=== PATIENT | female | born 1950 | race Caucasian/White ===

== ENCOUNTER 2024-09-11 07:20 | Inpatient (IN) ==
--- NOTE | 2024-08-05 13:33 | PAT Medication Instructions ---
Medication Instructions Date of Service August 05, 2024 Home Medications calcium carbonate 600 mg-vitamin D3 5 mcg (200 unit) tablet 1 tab PO QAM docusate sodium 100 mg capsule (Stool Softener) 100 mg PO QAM multivitamin 1 tab PO QAM paroxetine HCl 20 mg tablet (Paxil) 20 mg PO QAM acetaminophen 500 mg tablet 1,000 mg PO Q6H PRN Pain baclofen 10 mg tablet 10 mg PO Q8H PRN muscle spasms gabapentin 300 mg capsule 300 mg PO TID DO NOT take the morning of surgery calcium carbonate 600 mg-vitamin D3 5 mcg (200 unit) tablet 1 tab PO QAM docusate sodium 100 mg capsule (Stool Softener) 100 mg PO QAM multivitamin 1 tab PO QAM Take morning of surgery With a small sip of water, OTHERWISE NOTHING TO EAT OR DRINK AFTER MIDNIGHT: paroxetine HCl 20 mg tablet (Paxil) 20 mg PO QAM acetaminophen 500 mg tablet 1,000 mg PO Q6H PRN Pain (if needed) baclofen 10 mg tablet 10 mg PO Q8H PRN muscle spasms (if needed) gabapentin 300 mg capsule 300 mg PO TID Take evening before surgery acetaminophen 500 mg tablet 1,000 mg PO Q6H PRN Pain (if needed) baclofen 10 mg tablet 10 mg PO Q8H PRN muscle spasms (if needed) gabapentin 300 mg capsule 300 mg PO TID Other Notes If you have any questions please call us at [phone] or [phone] or [phone] or [phone]
--- NOTE | 2024-08-15 11:20 | Anesthesiology Consultation ---
Date of Service August 15, 2024 Assessment & Plan (1) Encounter for pre-operative examination: - awaiting surgeon ordered medical clearance, Rivka LUO. - patient states that she no longer has limb restriction was states was advised it would only be for 10 years and has been 14 years now. Chart Review Chart Review: Pending: Refer to Additional Notes / Consult section and Patient seen in Pre Admission Testing Teaching & Discussion Pre-Anesthesia Teaching/Discussion Notes: Instructed NPO after midnight before surgery, except medications with 15 cc of water. Medication instructions provided according to the PAT guidelines. History Surgery Operation Date: 09/11/24 09:25 Proposed Procedures p L2-L3 Decompression and Fusion with Spinal Cord Monitoring - Marcos Smith DO Height/Weight Height: 5 ft 3 in Weight: 64 kg Allergies Allergy/AdvReac Type Severity Reaction Status Date / Time gabapentin AdvReac Intermediate hair loss Verified 08/15/24 12:07 nitrofurantoin AdvReac Intermediate Rash Verified 08/05/24 09:00 [From Macrobid] Medications Home Medications Medication Instructions Recorded Confirmed Last Taken calcium 600 mg (as 1 tab PO QAM 06/29/21 08/05/24 07/26/21 carbonate)-vitamin D3 5 mcg (200 unit) tablet docusate sodium 100 mg capsule 100 mg PO QAM 06/29/21 08/05/24 07/26/21 (Stool Softener) multivitamin 1 tab PO QAM 06/29/21 08/05/24 07/26/21 paroxetine HCl 20 mg tablet (Paxil) 20 mg PO QAM 06/29/21 08/05/24 07/26/21 acetaminophen 500 mg tablet 1,000 mg PO Q6H PRN Pain 08/05/24 08/05/24 Unknown baclofen 10 mg tablet 10 mg PO Q8H PRN muscle spasms 08/05/24 08/05/24 Unknown Past Medical History Medical History (Updated 08/15/24 @ 11:28 by Mahogany Sauceda PA-C) Adverse effect of anesthesia Slow to wake Breast cancer (~01/2010) hx - left Chemo/Radiation Chronic back pain SI joint History of trigger finger Right - Thumb Hot flashes currently taking paxil for Kidney stones hx - passed on own Nausea and vomiting after administration of anesthetic agent denies needing scop patch Patient denies h/o stroke, seizures, heart attack, heart failure, DM, HTN, blood clots/DVTs or blood transfusions. Exercise / Class Metabolic Activity II 4-5 Yardwork/Stairs/Walk up hill (denies chest discomfort or shortness of breath with one flight of stairs) Past Family History Family History Other No family history of adverse response to anesthesia Past Surgical History Surgical History History of bunionectomy of right great toe History of colonoscopy History of repair of rotator cuff right History of tonsillectomy Hx of bilateral cataract extraction Hx of hysterectomy Hx of lumpectomy left with sentinel node biopsy S/P epidural steroid injection SI Joint Past Anesthesia History No Family Hx of Anesthesia Complications and Other (slow to wake) History of PONV No Hx of Motion Sickness and History of PONV (denies needing scop patch) Social History Smoking Status: Never smoker Do You Dip or Chew Tobacco: No Hx Alcohol Use: Yes Alcohol type: wine alcohol intake frequency: holidays/special occasions only Hx Substance Use: No substance use type: does not use Review of Systems Snoring, denies witnessed apneas. Patient denies chest pain, shortness of breath, dyspnea on exertion, reflux, fever, chills, cough, wheezing, or palpitations. Physical Exam Vital Signs Vitals BP 161/80 P 72 TEMP 98.3 SP02 94% on RA RESP 18 Physical Patient resting comfortably in chair in no acute distress, alert and oriented, responding appropriately throughout visit Full cervical extension range of motion without pain TMD < 3 finger breadths Mallampati Score 2 Dentition: intact, denies chipped or loose teeth, caps/crowns, implants or bridges Lungs: normal respiratory effort. Good air movement, clear throughout to auscultation, no adventitious breath sounds Cardiac: regular rate and rhythm, no murmurs noted Carotid arteries: negative bruit bilat Lab Results Anesthesia Preop Results Results Anesthesia Widget: WBC 9.16 K/ul (4.8-10.8) 08/15/24 Hgb 14.0 g/dl (12.0-16.0) 08/15/24 Hct 42.5 % (37.0-47.0) 08/15/24 Plt 270 K/uL (130-400) 08/15/24 Na 142 mmol/L (136-145) 08/15/24 K 4.5 mmol/L (3.5-5.1) 08/15/24 Cl 107 mmol/L (98-107) 08/15/24 CO2 29 mmol/L (21-32) 08/15/24 BUN 22 mg/dl (6-23) 08/15/24 Creat 0.72 mg/dl (0.6-1.2) 08/15/24 Glucose Level 94 mg/dl (70-99(Fasting)) 08/15/24 PT 10.7 Seconds (9.0-12.0) 08/15/24 PTT 28 Seconds (21-31) 08/15/24 INR 1.0 (0.9-1.1) 08/15/24 Urine Color Yellow 08/15/24 Urine Appearance Clear (Clear) 08/15/24 Urine pH 7.0 (4.5-7.5) 08/15/24 Urine Specific [place] 1.019 (1.000-1.030) 08/15/24 Urine Protein Trace (Negative) H 08/15/24 Urine Glucose (UA) Negative (Negative) 08/15/24 Urine Ketones Negative (Negative) 08/15/24 Urine Blood Negative (Negative) 08/15/24 Urine Nitrite Negative (Negative) 08/15/24 Urine Bilirubin Negative (Negative) 08/15/24 Urine Urobilinogen Negative (Negative) 08/15/24 Urine Leukocyte Esterase Negative (Negative) 08/15/24 Urine WBC (Auto) 0-5 /hpf (0-5) 08/15/24 Urine RBC (Auto) 0-2 /hpf (0-2) 08/15/24 Urine Hyaline Casts (Auto) 0-2 /lpf (0-2) 08/15/24 Urine Epithelial Cells (Auto) 0-2 /hpf (0-2) 08/15/24 Urine Bacteria (Auto) None Seen (None Seen) 08/15/24 Blood Type O Positive 08/15/24 Antibody Screen NEGATIVE 08/15/24 Testing Electrocardiogram Date: 08/15/24 NSR, rate 72 bpm Poor R wave progression, consider anterior AR vs lead placement vs LVH Chest X-Ray Date: 08/15/24 No acute cardiopulmonary findings.
[2024-09-11] MEDS: ACETAMINOPHEN 500 MG TAB PO SCH (08:12)
[2024-09-11] MEDS: LR 15ML/HR IV SCH (08:12)
[2024-09-11] MEDS: GABAPENTIN 300 MG CAP PO SCH (08:13)
[2024-09-11] MEDS: LR 60ML/HR IV SCH (08:13)
[2024-09-11] MEDS: CeleBREX 200 MG CAP PO SCH (08:13)
--- NOTE | 2024-09-11 08:44 | History & Physical Bridge Note ---
Date of Service September 11, 2024 History & Physical Bridge Note I have examined the patient, reviewed the History & Physical and in the interval since the performance of the History & Physical I have noted the following changes of clinical significance: no changes noted
--- NOTE | 2024-09-11 08:45 | History & Physical Report ---
Date of Service September 11, 2024 Assessment & Plan (1) Neurogenic claudication due to lumbar spinal stenosis: Plan: L2-L3 decompression and fusion History of Present Illness Chief Complaint: Back and leg pain Primary Care Provider: Joshua Varma This is a 74-year-old female who presents with chronic persistent back and leg pain after failing course of nonoperative care is here for surgical invention. Allergies Allergy/AdvReac Type Severity Reaction Status Date / Time gabapentin AdvReac Intermediate hair loss Verified 09/11/24 07:59 nitrofurantoin AdvReac Intermediate Rash Verified 09/11/24 07:59 [From Macrobid] Home Medications Medication Instructions Recorded Confirmed Type calcium 600 mg (as 1 tab PO QAM 06/29/21 09/11/24 History carbonate)-vitamin D3 5 mcg (200 unit) tablet docusate sodium 100 mg capsule 100 mg PO QAM 06/29/21 09/11/24 History (Stool Softener) multivitamin 1 tab PO QAM 06/29/21 09/11/24 History paroxetine HCl 20 mg tablet (Paxil) 20 mg PO QAM 06/29/21 09/11/24 History acetaminophen 500 mg tablet 1,000 mg PO Q6H PRN Pain 08/05/24 09/11/24 History baclofen 10 mg tablet 10 mg PO Q8H PRN muscle spasms 08/05/24 09/11/24 History cholecalciferol (vitamin D3) 125 125 mcg PO DAILY 09/11/24 09/11/24 History mcg (5,000 unit) tablet (Vitamin D3) Past Med/Surg History Problem List (Updated 09/11/24 @ 08:45 by Marcos Smith DO) Neurogenic claudication due to lumbar spinal stenosis Encounter for pre-operative examination Medical History (Updated 09/11/24 @ 08:45 by Marcos Smith DO) Adverse effect of anesthesia Slow to wake History of trigger finger Right - Thumb Nausea and vomiting after administration of anesthetic agent denies needing scop patch Chronic back pain SI joint Kidney stones hx - passed on own Breast cancer (~01/2010) hx - left Chemo/Radiation Hot flashes currently taking paxil for Surgical History Hx of hysterectomy Hx of bilateral cataract extraction History of bunionectomy of right great toe History of repair of rotator cuff right S/P epidural steroid injection SI Joint History of colonoscopy History of tonsillectomy Hx of lumpectomy left with sentinel node biopsy Family History Other No family history of adverse response to anesthesia Social History Smoking Status: Never smoker Second Hand Exposure: No; Do You Dip or Chew Tobacco: No; Tobacco Cessation Education Requested by Patient: No Hx Alcohol Use: Yes Alcohol type: wine Hx Substance Use: No Preferred Language: Colombian Communication Ability: Effective [employer] Sales Representative Required: No Beliefs That Will Affect Care: None Current Living Situation: Spouse Other Information That Helps Us Care for You: No Feels Safe at Home: Yes Safety Concerns: Feels Safe At This Time Assistive Devices: Glasses Physical Exam Physical Exam: Patient is alert and oriented Heart regular in rhythm Lungs clear Results & Data Results & Data Vital Signs (Past 12 Hours) Vital Signs Temp Pulse Resp BP Pulse Ox O2 Del Method 09/11/24 08:03 36.7 C 66 18 180/84 H 96 Room Air
[2024-09-11] MEDS ORDERED: ePHEDrine sulfate 50 MG/ML AMP IV PRN (08:53)
[2024-09-11] MEDS ORDERED: fentaNYL citrate PF 100 MCG/2 ML VIAL IV PRN (08:53)
[2024-09-11] MEDS ORDERED: ONDANSETRON INJ 2 MG/ML 2 ML VIAL IV PRN ×2 (08:53→11:54)
[2024-09-11] MEDS ORDERED: ATROPINE SULFATE 0.1 MG/ML 10ML SYR IV PRN (08:53)
[2024-09-11] MEDS ORDERED: PROMETHAZINE HCL 6.25 MG in SODIUM CHLORIDE 0.9% 50 ML IV PRN (08:53)
[2024-09-11] MEDS ORDERED: fentaNYL citrate PF 100 MCG/2 ML VIAL ONE ×2 (09:05→09:52)
[2024-09-11] MEDS ORDERED: MIDAZOLAM HCL 1 MG/ML 2ML VIAL ONE (09:05)
[2024-09-11] MEDS: ceFAZolin 2000MG 2,000 MG/15 ML SYR IV SCH (09:30)
[2024-09-11] MEDS ORDERED: ONDANSETRON INJ 2 MG/ML 2 ML VIAL ONE (09:48)
[2024-09-11] MEDS ORDERED: SUGAMMADEX SODIUM 200 MG/2 ML VIAL IV ONE (09:52)
[2024-09-11] MEDS ORDERED: PROPOFOL IV EMULSION 10 MG/ML 20 ML VIAL IV ONE (09:52)
[2024-09-11] MEDS ORDERED: DEXAMETHASONE SOD INJ 4 MG/ML VIAL ONE (09:52)
[2024-09-11] MEDS ORDERED: ROCURONIUM BROMIDE 10 MG/ML 5 ML VIAL IV ONE (09:52)
[2024-09-11] MEDS ORDERED: ePHEDrine sulfate 50 MG/5 ML SYR ONE (10:07)
[2024-09-11] MEDS ORDERED: KETOROLAC 30 MG/ML VIAL ONE (10:33)
[2024-09-11] MEDS: ceFAZolin 330 MG/ML 1 GM VIAL ONE (10:45)
[2024-09-11] MEDS: FLOSEAL HEMOSTATIC MATRIX 10ML TOP ONE (10:45)
[2024-09-11] MEDS: BUPIVACAINE/EPINEPHRINE 0.25% 1:200,000 30 ML VIAL ONE (10:45)
--- NOTE | 2024-09-11 10:48 | Operative Report ---
Post Operative Report Pre & Post Diagnosis Operation Date: 09/11/24 09:10 Pre-Op Diagnosis: Neurogenic claudication due to lumbar spinal stenosis Post-Op Diagnosis: Neurogenic claudication due to lumbar spinal stenosis I identified the patient and participated in the time-out.: Yes Procedure Operation Date: 09/11/24 09:10 Actual Procedures #1 lumbar decompression with bilateral medial facetectomies and foraminotomies L2-L3. #2 posterior spinal fusion L2-L3. #3 placed posterior instrumentation L2-L3. #4 interbody fusion L2-L3. #5 placement of Spira limb by 26 mm at L2- L3. #6 placement locally harvested morselized autograft and posterior gutters. #7 placement infuse collagen sponge combined with Koros in the posterior lateral gutters and os design interbody space. #8 placement of versa wrap over the exposed dura. Surgeon Marcos Smith, Dispatch Lead Kiki Daniel Estimated Blood Loss 50 Findings Consistent with Post-Op Diagnosis Specimens None Indications This is a 74-year-old female presents publish diagnosis of failing course of nonoperative care is here for surgical invention. Description of Procedure Patient was met with identified informed consent obtained. Patient was then taken to the operative suite underwent intubation placed in a prone position on the Kirk table on top of the Brad frame. All bony promises well-padded eyes inspected to ensure no external pressure placed upon them. This point lumbar spine was prepped and draped in the normal sterile fashion. Sharp dissection with the assistance of Bovie cautery performed down to and exposing the lamina and transverse processes of L2-L3. From caudal to cephalad fashion complete laminectomy of L2 was performed including bilateral medial facetectomies and foraminotomies addressing severe spinal stenosis and foraminal disease. Pedicle screws were then placed in L to L3 bilaterally with assistance of fluoroscopy and the properly sized jesica placed. By way of transforaminal approach on the right a complete discectomy of L2-L3 was performed endplates corrected to subcortical bleeding bone and a 11 x 26 mm Spira cage filled with os design bone graft tapped into position. The rods were then compressed locked in final position bilaterally. Transverse processes of L2-L3 burred to subcortical bleeding bone. Infuse collagen sponge combined with Koros and local autograft placed in the posterior gutters. Versa wrap placed over the exposed dura. Please note spinal cord monitoring was utilized at the procedure no changes noted. Kiki Daniel was present out the entire procedure and all the patient positioning complex portions of the surgery and final skin closure. 15 round KURT drain inserted. The incision was then closed with 1 Vicryl fascia 2-0 Vicryl subcutaneously and 4 Monocryl for final closure. Im ordering 20 grams of Triple [place] Collagen Powder ([employer] [id number]) to treat an incision wound that was caused by a spine procedure. The incision is approximately 2 cm(W) x 4 cm(L) into the joint (D) in size and is a full thickness wound. Triple [place] collagen comes in 1 gram packets so 20 packets were ordered. Given the size of the wound, with light to moderate exudate I chose to order a 20 day supply. The patient will be provided instructions for proper application of the collagen wound kit. The patient will be asked to apply the collagen powder daily and then cover it with sterile dressings dispensed. Collagen was selected as I expect the collagen to attract monocytes and fibroblasts, act as a sacrificial substrate for MMPs, and ultimately proved a matrix for tissue and vessel growth. The collagen will act as a primary dressing in this scenario. It is medically necessary for proper healing of these wounds to improve bioavailability and contact with each wound surface, this is also to help prevent infection of wounds and promote healing ultimately leading to a better healing outcome and limit the risk of infection. I attest to the content of the Intraoperative Record and any orders documented therein. Any exceptions are noted below.
--- OUTSIDE RECORDS SUMMARY | 2024-09-11 11:22 | External Medical Summary ---
"Continuity of Care Document (CCD) Created on: September 04, 2024 Cande Maldonado External Reference #: [id number] : 1950 Sex: Female Author Name Unknown Organization [facility] Address [address] [place] [address] Phone [phone] Care Team Providers Care Track Repair Worker Name Role Phone Papito Glover M.D. Care Team Information Rece iver [phone] Problems Active Problems Provider Date Right side sciatica Penny Ya DO Onset: 07/2023 Social History Type Date Description Comments Sex Unknown Tobacco Use Reviewed: 08/22/24 Never Smoked Cigarette s Tobacco Use Reviewed: 08/22/24 Never Smoked Cigars Tobacco Use Reviewed: 08/22/24 Never Smoked A Pipe Smoking Status Reviewed: 08/22/24 Never Smoked A Pipe Smokeless Tobacco 08/22/2024 Never Used Smokeless To bacco ETOH Use Denies alcohol use Recreational Drug Use Denies Drug Use Allergies and adverse reactions Active Allergies Criticality Reaction | Severity Comments Date Macrobid Unable to assess criticality 07/07/2016 Medications Active Medications SIG Qnty Indications Order ing Provider Date Aspirin 81 Low Jtcs21do Chewtabs 1 by mouth every day 90units Joshua Varma, DO 08/22/2024 Vitamin D3 Maximum Jyqmqjie439gyx (5000 Ut) Capsules 1 by mouth every day 90caps Joshua Varma DO 08/22/2024 Jiztiubu55ga Tablets 1 by mouth tab every 8 hours as needed pain/muscle spasm 90tabs David Amezcua JR, DO 06/17/2024 Fluocinolone Acetonide0.01% Oil 5 gtt in affected ears bid x 7 days prn 20ml Joshua Varma, 03/14/2024 Camuuqni10cnt/0.5ML Suspension Rec 0.5 milliliters intramuscular x 1 1units Joshua Varma, 03/01/2024 Rfuwswkx32-278-21dv Capsules 1 po q 4 hours prn. Do not exceed 6/day 14caps G44.209 Joshua Varma, DO 03/01/2024 Multivitamin AdultTablets 1 by mouth every day Unknown Sndry56li Tablets 1 by mouth every day N95.1 Unknown Calcium 455043fk Tablets 1 by mouth once a day Unknown Stool SoftenerCapsules 1 by mouth every day Unknown History Medications Dwpzrfutvx882wn Tablets take 1 tablet by mouth every 6-8 hours as needed for pain/muscle spasms 90tabs M51.16 David Amezcua JR, DO 06/17/2024 - 06/17/2024 Kzxdmkncgv686aa Capsules 1 by mouth every night at bedtime day 1, 1 by mouth twice a day day 2, then 1 by mouth three times a day 90caps M51.16 Joshua Varma, 05/23/2024 - 08/22/2024 Fxdkyrnqvx57qy Tablets 4 tabs by mouth days 1-2, 3 tabs by mouth days 3-4, 2 tabs by mouth days 5-6, 1 tab by mouth day 7-8 20tabs M51.16 Joshua Varma, 05/23/2024 - 05/31/2024 Medications Administered in Office Medication SIG Qnty Indications Ordering Provider Date Injection Ketorolac Trometha mine Per 15 mg/.5cc (Toradol)Injection Everett Cuenca PA-C 06/17/2024 Injection Ketorolac Trometha mine Per 15 mg/.5cc (Toradol)Injection Rivka Avina PA-C 05/23/2024 Injection Ketorolac Trometha mine Per 15 mg/.5cc (Toradol)Injection Rivka Avina PA-C 02/09/2024 Injection Methylprednisolone Acetate 20 MGInjection Rivka Avina PA-C 02/09/2024 Injection Kenalog 10 MG ND [id number] Joshua Varma, 1 12/03/2022 Injection Ketorolac Trometha mine Per 15 mg/.5cc (Toradol)Injection Raven perez MD 07/03/2023 Injection Methylprednisolone Acetate 20 MGInjection Raven Lord MD Injection Kenalog 10 MG NDC [id number] Joshua Varma, DO 0 05/31/2021 Injection Methylprednisolone Acetate 20 MGInjection Joshua Varma, DO 03/10/2021 Injection Kenalog 10 MG NDC [id number] Joshua Varma, DO 0 12/04/2020 Injection Ketorolac Trometha mine Per 15 mg/.5cc (Toradol)Injection Rivka Avina PA-C 08/28/2020 Injection Methylprednisolone Acetate 20 MGInjection Joshua Varma, DO 08/25/2020 Injection Ketorolac Trometha mine Per 15 mg/.5cc (Toradol)Injection Rivka Avina PA-C 04/22/2019 Injection Methylprednisolone Acetate 20 MGInjection Rivka Avina PA-C 04/22/2019 Immunizations CPT Code Status Date Vaccine Lot # [id number] Given 08/22/2024 Influenza Vac, Split, Preservative Free High Dose Age 65 & > [id number] 32712 Given 10/11/2023 Influenza Vaccine High Do se 0.5ML Age 65 & > [id number] 39477 Given 10/21/2021 Influenza Vaccine High Do se 0.5ML Age 65 & > [id number] 49067 Given 01/28/2021 Influenza Virus Vaccine, Quadriv[place], [place] Use 49174 Given 09/30/2019 Influenza Vacci ne, Inactivated, Subunit, Adjuvanted, For Intrmusc [id number] 56059 Given 02/25/2019 Pneumococcal Vaccine/Pneu movax 23 [id number] 37391 Given 09/21/2017 Zostavax Vaccine 12349 Given 09/14/2017 Pneumococcal Conjugate-Pr evnar 13 [id number] 05056 Given 09/14/2017 Influenza Vac, Split, Preservative Free High Dose Age 65 & > [id number] 02194 Given 07/07/2016 Tdap (Tetanus, diphtheria & acel. pertussis) Adacel or Boostrix [id number] 74547 Refused 08/22/2024 Shingrix 14748 Refused 06/17/2024 Moderna Sars-Co v-2 (Cov-19) vacc,100 mcg/ 0.5 mL 12Y+EMR Doc Only 53469 Refused 02/22/2023 Moderna Sars-Co v-2 (Cov-19) vacc,100 mcg/ 0.5 mL 12Y+EMR Doc Only 93332 Refused 02/15/2021 Moderna Sars-Co v-2 (Cov-19) vacc,100 mcg/ 0.5 mL 12Y+EMR Doc Only 48838 Refused 12/04/2020 Shingrix 40857 Refused 07/03/2017 Influenza Virus Vaccine, Quadrivalent, [place] Use 77696 Refused 03/02/2017 Zostavax Vaccine 62522 Refused 03/02/2017 Pneumococcal Vaccine/Pneu movax 23 21340 Refused 03/02/2017 Influenza Virus Vaccine, Quadrivalent, Im Use 05881 Refused 03/02/2017 Pneumococcal Conjugate-Pr evnar 13 Vital Signs Date Vital Result Comment 08/22/2024 8:30am BP Systolic 132 mmHg BP Diastolic 72 mmHg Body Temperature 98.3 F Heart Rate 70 /min Respiratory Rate 16 /min Weight 135.38 lb Weight 61.406 kg 06/17/2024 8:50am BP Systolic 130 mmHg BP Diastolic 80 mmHg Body Temperature 97.6 F Heart Rate 75 /min Respiratory Rate 20 /min Results Test Acquired Date Facility Test Result H/L Range N ote Laboratory test finding 09/03/2024 [facility] [address] [place] [address] Potassium 4.9 mEq/L 3.5-5.0 1 Comp. Met 09/02/2024 [facility] [address] [place], [place] [address] Glucose 97 mg/dL 70-110 BUN 21 mg/dL 6-25 Creatinine 0.6 mg/dL 0.5-1.2 Sodium 143 mEq/L 135-145 Potassium 5.5 mEq/L High 3.5-5.0 Chloride 106 mEq/L 95-107 Co-2 28 mEq/L 24-31 Alk Phos 87 IU/L 43-122 Alt(SGPT) 12 IU/L 10-40 Ast(Sgot) 17 IU/L 3-42 T.Bilirubin 0.3 mg/dL 0.1-1.3 Calcium 9.3 mg/dL 8.5-10.6 Tot.Protein 6.3 g/dL 5.8-8.0 Albumin 4.1 g/dL 3.0-5.2 Globulin 2.2 g/dL 2.0-3.4 GFR 104 ML/MIN/1.7 3SQM >60 Lipid 09/02/2024 [facility] [address] [place] [address] [phone] Cholesterol 212 mg/dL High 0-200 2 Triglyceride 98 mg/dL 0-150 3 HDLD 75 mg/dL See Comment 4 Measured LDL 124 mg/dL 0-130 5 Calc VLDL 19.6 mg/dL See Comment 6 Chol/HDL 2.8 RATIO See Comment 7 Non-HDL 137 mg/dL See Comment 8 CBC W/Diff 09/02/2024 [facility] [address] [place], [place] [id number] [phone] WBC 7.2 10^3/M3 3.1-9.2 RBC 4.81 10^6/M3 3.70-5.50 HGB 14.7 GR/DL 11.5-16.1 HCT 43.8 % 34.5-47.8 MCV 90.9 CUMICR 82.6-95.8 MCH 30.5 PICOGR 27.9-32.9 MCHC 33.5 % 32.6-35.4 RDW 13.3 % 11.4-14.6 PLT 265 10^3/M3 140-350 MPV 7.5 CUMICR 7.0-10.6 %Neut 53.4 % 40.0-75.0 %Lymph 34.4 % 17.0-45.0 %Creek 6.2 % 1.0-11.0 %Eos 4.9 % 0.0-6.0 %Baso 1.1 % 0.0-2.0 #Neut 3.8 10^3/M3 1.5-8.0 #Lymph 2.5 10^3/M3 0.8-3.2 #Creek 0.4 10^3/M3 0.0-0.8 #Eos 0.4 10^3/m3 0.0-0.4 #Baso 0.1 10^3/m3 0.0-0.2 Laboratory test finding 09/02/2024 [facility] [address] [place], [place] [id number] FRT4 0.87 ng/dL 0.75-1.54 TSH 1.30 uIU/mL 0.50-6.00 Iron Panel(Medcom) 09/02/2024 [facility] [address] [place] [address] Iron 92 g /dL 25-140 % Saturation 33 % 30-35 Tibc 09/02/2024 [facility] [address] [place] [address] Tibc 277 g /dL 260-400 Transferrin 198 mg/dL Low 200-400 Laboratory test finding 04/22/2024 [facility] [address] [place] [address] [phone] Potassium 4.8 mEq/L 3.5-5.0 Laboratory test finding 03/29/2024 [facility] [address] [place] [address] Potassium 5.2 mEq/L High 3.5-5.0 BMP 03/26/2024 [facility] [address] [place] [address] [phone] Glucose 88 mg/dL 70-110 BUN 28 mg/dL High 6-25 Creatinine 0.9 mg/dL 0.5-1.2 Sodium 140 mEq/L 135-145 Potassium 5.5 mEq/L High 3.5-5.0 Chloride 101 mEq/L 95-107 Co-2 27 mEq/L 24-31 Calcium 10.2 mg/dL 8.5-10.6 GFR 65 ML/MIN/1.7 3SQM >60 Laboratory test finding 03/08/2024 [facility] [address] [place] [address] Potassium 5.1 mEq/L High 3.5-5.0 1 CRITICAL RESULTS ARIANNA IFIED, FAXED, AND CALLED TO HANNA @ 4442 09/03/2024 [facility] 2 CHOLESTEROL Less than 200mg/dl Low risk 201-239 mg/dl Borderline risk Equal to or greater 240mg/dl High risk 3 TRIGLYCERIDES Less than 150mg/dl Normal 150-199mg/dl Borderline 200-499mg/dl High Greater than 500mg/dl Very High 4 HDL <40mg/dl Elevated Risk 41-59mg/dl Risk >=60mg/dl Least Risk 5 LDL <100mg/dl Optimal 100-129mg/dl Near Optimal 130-159mg/dl Borderline High 160-189mg/dl High >=190 Very High 6 VLDL Less than 30mg/dl Normal 7 CHOL/HDL <4.0 Optimal 4.0-5.0 Borderline >6.0 High Risk 8 NON-HDL 30mg/dl higher than LDL Target Procedures Date Code Description Status 09/03/2024 00506 Venipuncture Routine Complet ed 09/02/2024 46825 Venipuncture Routine Complet ed 08/22/2024 G9920 Scrning Perf And Negative Co mpleted 08/22/2024 G0008 Influenza Admin Completed 06/17/2024 J1885 Injection Ketoro lac Tromethamine Per 15 mg/.5cc (Toradol) Completed 05/23/2024 J1885 Injection Ketoro lac Tromethamine Per 15 mg/.5cc (Toradol) Completed 04/22/2024 68383 Venipuncture Routine Complet ed 04/17/2024 [id number] Mammogram Completed 03/29/2024 80434 Venipuncture Routine Complet ed 03/26/2024 10556 Venipuncture Routine Complet ed 03/08/2024 41467 Venipuncture Routine Complet ed 01/28/2021 34330002 Colonoscopy Completed 08/22/2019 [id number] Bone Mineral Density Test Co mpleted Medical Devices Description No Information Available Encounters Type Date Location Provider Dx Diagnosis Office Visit 08/22/2024 8:30a Tanja Avina PA-C 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, lumbar region Z01.818 Encounter for other preprocedural examination Z23 Encounter for immuni zation Office Visit 06/17/2024 8:45a Tanja farah PA-C M51.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 disc disorders w radiculopathy, lumbar region Office Visit 05/23/2024 3:00p Tanja Forbes PA-C M51.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 disc disorders w radiculopathy, lumbar region Assessments Date Code Description Provider 09/03/2024 R79.89 Other specified abnormal findings of blood chemistry Lab - [place] 09/02/2024 Z00.01 Encounter for [facility] adult medical examination with abnormal findings Lab - [place] 09/02/2024 E78.2 Mixed hyperlipidemia Lab - [facility] 09/02/2024 Z85.3 Personal history of malignant neoplasm of breast Lab - [place] 09/02/2024 N95.1 Menopausal and female climac teric states Lab - [place] 09/02/2024 R79.89 Other specified abnormal findings of blood chemistry Lab - [place] 08/22/2024 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 Rivka Avina PA-C 08/22/2024 M51.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 d isc disorders with radiculopathy, lumbar region Rivka Avina PA-C 08/22/2024 Z01.818 Encounter for ot her preprocedural examination Rivka Avina PA-C 08/22/2024 Z23 Encounter for immunization H lola Avina PA-C 06/17/2024 M51.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 d isc disorders with radiculopathy, lumbar region Everett Cuenca PA-C 05/23/2024 M51.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 d isc disorders with radiculopathy, lumbar region Rivka Avina PA-C 04/22/2024 E87.5 Hyperkalemia Naila Mims MD, PhD 04/22/2024 E87.5 [facility] E87.5 Hyperkalemia Joshua Varma, DO 03/29/2024 E87.5 [facility]/26/[facility] E87.5 Hyperkalemia Joshua Varma, DO 03/26/2024 E87.5 [facility] 03/08/2024 R79.89 Other specified abnormal findings of blood chemistry Joshua Varma, DO 03/08/2024 R79.89 Other specified abnormal findings of blood chemistry Lab - [place] Plan of Treatment Future Appointment(s):* 09/27/2024 9:00 am - Rivka Avina PA-C at [place] 08/22/2024 - Rivka Avina PA-C* E04.1 Nontoxic single thyroid nodule* New Xrays:* Ultrasound Head And Neck Soft Tissues, Scheduled: 09/17/24 * Follow up:* thyroid u/s * M51.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 disc disorders with radiculopathy, lumbar region * Z01.818 Encounter for other preprocedural examination* Follow up:* medically stable at this time to have surgery as planned * Z23 Encounter for immunization * All* New Medication:* Aspirin 81 Low Dose 81 mg - 1 by mouth every day * Vitamin D3 Maximum Strength 125 mcg (5000 Ut) - 1 by mouth every day Functional Status Description No Information Available Mental Status Description No Information Available Referrals Refer to Dr Reason for Referral Status Appt Papito Wood M.D. Closed 07/19 [facility] [address] [phone]"
--- OUTSIDE RECORDS SUMMARY | 2024-09-11 11:22 | External Medical Summary ---
"Continuity of Care Document (CCD) Created on: September 08, 2024 Cande Maldonado External Reference #: [id number] : 1950 Sex: Female Author Name Unknown Organization [facility] Address [address] [place] [address] Phone [phone] Care Team Providers Care Sole Assessor Name Role Phone Papito Glover M.D. Care Team Information Rece iver [phone] Problems Active Problems Provider Date Right side [...] Order ing Provider Date Aspirin 81 Low Cnqg74sk Chewtabs 1 by mouth every day 90units Joshua Varma, DO 08/22/2024 Vitamin D3 Maximum Rkhaewjd659nvv (5000 Ut) Capsules 1 by mouth every day 90caps Joshua Varma DO 08/22/2024 Skuoxtpw50ji Tablets 1 by mouth tab every 8 hours as needed pain/muscle spasm 90tabs David Amezcua JR, DO 06/17/2024 Fluocinolone Acetonide0.01% Oil 5 gtt in affected ears bid x 7 days prn 20ml Joshua Varma, 03/14/2024 Asibreiu22aqf/0.5ML Suspension Rec 0.5 milliliters intramuscular x 1 1units Joshua Varma, 03/01/2024 Flpkfnri10-304-23jf Capsules 1 po q 4 hours prn. Do not exceed 6/day 14caps G44.209 Joshua Varma, DO 03/01/2024 Multivitamin AdultTablets 1 by mouth every day Unknown Xglkh49be Tablets 1 by mouth every day N95.1 Unknown Calcium 123018ot Tablets 1 by mouth once a day Unknown Stool SoftenerCapsules 1 by mouth every day Unknown History Medications Ftvvvdlknz260um Tablets take 1 tablet by mouth every 6-8 hours as needed for pain/muscle spasms 90tabs M51.16 David Amezcua JR, DO 06/17/2024 - 06/17/2024 Bubmelcvhp096ok Capsules 1 by mouth every night at bedtime day 1, 1 by mouth twice a day day 2, then 1 by mouth three times a day 90caps M51.16 Joshua Varma, 05/23/2024 - 08/22/2024 Wlsgvvueyu69pk Tablets 4 tabs by mouth days 1-2, [...] PA-C 02/09/2024 Injection Kenalog 10 MG ND [id number] Joshua Varma, 1 12/03/2022 Injection Ketorolac Trometha mine Per 15 mg/.5cc (Toradol)Injection Raven perez MD 07/03/2023 Injection Methylprednisolone Acetate 20 MGInjection Raven Lord MD Injection Kenalog 10 MG NDC [id number] Joshua Varma, DO 0 05/31/2021 Injection Methylprednisolone Acetate 20 MGInjection Joshua Varma, DO 03/10/2021 Injection Kenalog 10 MG NDC [id number] Joshua Varma, DO 0 12/04/2020 Injection Ketorolac Trometha mine Per 15 mg/.5cc (Toradol)Injection Rivka Avina PA-C 08/28/2020 Injection Methylprednisolone Acetate 20 MGInjection Joshua Varma, DO 08/25/2020 Injection Ketorolac Trometha mine Per 15 mg/.5cc (Toradol)Injection Rivka Avina PA-C 04/22/2019 Injection Methylprednisolone Acetate 20 MGInjection Rivka Avina PA-C 04/22/2019 Immunizations CPT Code Status Date Vaccine Lot # [id number] Given 08/22/2024 Influenza Vac, Split, Preservative Free High Dose Age 65 & > [id number] 92507 Given 10/11/2023 Influenza Vaccine High Do se 0.5ML Age 65 & > [id number] 64386 Given 10/21/2021 Influenza Vaccine High Do se 0.5ML Age 65 & > [id number] 61788 Given 01/28/2021 Influenza Virus Vaccine, Quadriv[place], [place] Use 89986 Given 09/30/2019 Influenza Vacci ne, Inactivated, Subunit, Adjuvanted, For Intrmusc 181408 29675 Given 02/25/2019 Pneumococcal Vaccine/Pneu movax 23 [id number] 66359 Given 09/21/2017 Zostavax Vaccine 35729 Given 09/14/2017 Pneumococcal Conjugate-Pr evnar 13 [id number] 60987 Given 09/14/2017 Influenza Vac, Split, Preservative Free High Dose Age 65 & > [id number] 67728 Given 07/07/2016 Tdap (Tetanus, diphtheria & acel. pertussis) Adacel or Boostrix [id number] 41883 Refused 08/22/2024 Shingrix 96681 Refused 06/17/2024 Moderna Sars-Co v-2 (Cov-19) vacc,100 mcg/ 0.5 mL 12Y+EMR Doc Only 37566 Refused 02/22/2023 Moderna Sars-Co v-2 (Cov-19) vacc,100 mcg/ 0.5 mL 12Y+EMR Doc Only 77441 Refused 02/15/2021 Moderna Sars-Co v-2 (Cov-19) vacc,100 mcg/ 0.5 mL 12Y+EMR Doc Only 16377 Refused 12/04/2020 Shingrix 31107 Refused 07/03/2017 Influenza Virus Vaccine, Quadrivalent, [place] Use 51804 Refused 03/02/2017 Zostavax Vaccine 18854 Refused 03/02/2017 Pneumococcal Vaccine/Pneu movax 23 47717 Refused 03/02/2017 Influenza Virus Vaccine, Quadrivalent, [place] Use 80127 Refused 03/02/2017 Pneumococcal Conjugate-Pr evnar 13 Vital [...] Range N ote Laboratory test finding 09/03/2024 [facility] [address] [place] [address] [phone] Potassium 4.9 mEq/L 3.5-5.0 1 Comp. Met 09/02/2024 [facility] [address] [place], [place] [address] Glucose 97 mg/dL 70-110 BUN 21 mg/dL [...] GFR 104 ML/MIN/1.7 3SQM >60 Lipid 09/02/2024 [facility] [address] [place] [address] [phone] Cholesterol 212 mg/dL High 0-200 2 Triglyceride 98 mg/dL 0-150 3 HDLD 75 mg/dL See Comment 4 Measured LDL 124 mg/dL 0-130 5 Calc VLDL 19.6 mg/dL See Comment 6 Chol/HDL 2.8 RATIO See Comment 7 Non-HDL 137 mg/dL See Comment 8 CBC W/Diff 09/02/2024 [facility] [address] [place], [place] [address] WBC 7.2 10^3/M3 3.1-9.2 RBC 4.81 10^6/M3 3.70-5.50 HGB 14.7 GR/DL 11.5-16.1 HCT 43.8 % 34.5-47.8 MCV 90.9 CUMICR 82.6-95.8 MCH 30.5 PICOGR 27.9-32.9 MCHC 33.5 % 32.6-35.4 RDW 13.3 % 11.4-14.6 PLT 265 10^3/M3 140-350 MPV 7.5 CUMICR 7.0-10.6 %Neut 53.4 % 40.0-75.0 %Lymph 34.4 % 17.0-45.0 %Mower 6.2 % 1.0-11.0 %Eos 4.9 % 0.0-6.0 %Baso 1.1 % 0.0-2.0 #Neut 3.8 10^3/M3 1.5-8.0 #Lymph 2.5 10^3/M3 0.8-3.2 #Mower 0.4 10^3/M3 0.0-0.8 #Eos 0.4 10^3/m3 0.0-0.4 #Baso 0.1 10^3/m3 0.0-0.2 Laboratory test finding 09/02/2024 [facility] [address] [place], [place] [address] [phone] FRT4 0.87 ng/dL 0.75-1.54 TSH 1.30 uIU/mL 0.50-6.00 Iron Panel(Medcom) 09/02/2024 [facility] [address] [place] [address] [phone] Iron 92 g /dL 25-140 % Saturation 33 % 30-35 Tibc 09/02/2024 [facility] [address] [place] [address] [phone] Tibc 277 g /dL 260-400 Transferrin 198 mg/dL Low 200-400 Laboratory test finding 04/22/2024 [facility] [address] [place] [address] Potassium 4.8 mEq/L 3.5-5.0 Laboratory test finding 03/29/2024 [facility] [address] [place] [address] Potassium 5.2 mEq/L High 3.5-5.0 BMP 03/26/2024 [facility] [address] [place] [address] Glucose 88 mg/dL 70-110 BUN 28 mg/dL High 6-25 Creatinine 0.9 mg/dL 0.5-1.2 Sodium 140 mEq/L 135-145 Potassium 5.5 mEq/L High 3.5-5.0 Chloride 101 mEq/L 95-107 Co-2 27 mEq/L 24-31 Calcium 10.2 mg/dL 8.5-10.6 GFR 65 ML/MIN/1.7 3SQM >60 1 CRITICAL RESULTS ARIANNA IFIED, FAXED, AND CALLED TO HANNA @ 6241 09/03/[address] [facility] 2 CHOLESTEROL Less than 200mg/dl Low [...] Target Procedures Date Code Description Status 09/03/2024 16714 Venipuncture Routine Complet ed 09/02/2024 20179 Venipuncture Routine Complet ed 08/22/2024 G9920 Scrning Perf And Negative Co mpleted 08/22/2024 G0008 Influenza Admin Completed 06/17/2024 J1885 Injection Ketoro lac Tromethamine Per 15 mg/.5cc (Toradol) Completed 05/23/2024 J1885 Injection Ketoro lac Tromethamine Per 15 mg/.5cc (Toradol) Completed 04/22/2024 26062 Venipuncture Routine Complet ed 04/17/2024 [id number] Mammogram Completed 03/29/2024 28043 Venipuncture Routine Complet ed 03/26/2024 96089 Venipuncture Routine Complet ed 01/28/2021 27166174 Colonoscopy Completed 08/22/2019 [id number] Bone Mineral Density Test Co mpleted Medical [...] abnormal findings of blood chemistry Lab - [place] 09/02/2024 Z00.01 Encounter for ge neral adult medical examination with abnormal findings David Amezcua JR, DO 09/02/2024 Z00.01 Encounter for ge neral adult medical examination with abnormal findings Lab - [place] 09/02/2024 E78.2 Mixed hyperlipidemia David Amezcua , DO 09/02/2024 E78.2 Mixed hyperlipidemia Lab - [place] 09/02/2024 Z85.3 Personal history of malignant neoplasm of breast David Amezcua , DO 09/02/2024 Z85.3 Personal history of malignant neoplasm of breast Lab - [place] 09/02/2024 N95.1 Menopausal and female climac teric states David Amezcua , DO 09/02/2024 N95.1 Menopausal and female climac teric states Lab - [place] 09/02/2024 R79.89 Other specified abnormal findings of blood chemistry David Jennifer Amezcua JR, DO 09/02/2024 R79.89 Other specified abnormal findings of blood chemistry Lab - [place] 08/22/2024 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 [...] MD, PhD 04/22/2024 E87.5 Hyperkalemia Lab - [place] [facility] 03/29/2024 E87.5 Hyperkalemia Joshua Varma, DO 03/29/2024 E87.5 Hyperkalemia Lab - [place] [facility] 03/26/2024 E87.5 Hyperkalemia Joshua Varma, DO 03/26/2024 E87.5 Hyperkalemia Lab - [place] [facility] Plan of Treatment Future Appointment(s):* 09/27/2024 9:00 am - Rivka Avina PA-C at [place] 08/22/2024 - Rivka Avina PA-C* E04.1 Nontoxic [...] Description No Information Available Referrals Refer to Reason for Referral Status Appt Papito Wood M.D. Closed 07/19 [facility] [address] [phone]"
--- OUTSIDE RECORDS SUMMARY | 2024-09-11 11:22 | External Medical Summary | Continuity of Care Document ---
Author Name Unknown Organization [facility] Address [address] [place] [address] Phone [phone] Care Team Providers Care Investment Accounting Clerk Name Role Phone Papito Glover M.D. Care Team Information Rece iver [phone] Problems Active Problems Provider Date Right side [...] Order ing Provider Date Aspirin 81 Low Bdzz94pv Chewtabs 1 by mouth every day 90units Joshua Varma, DO 08/22/2024 Vitamin D3 Maximum Cygaucuk968dxe (5000 Ut) Capsules 1 by mouth every day 90caps Joshua Varma DO 08/22/2024 Qpczwogl16ua Tablets 1 by mouth tab every 8 hours as needed pain/muscle spasm 90tabs David Amezcua JR, DO 06/17/2024 Fluocinolone Acetonide0.01% Oil 5 gtt in affected ears bid x 7 days prn 20ml Joshua Varma, 03/14/2024 Kqgztqod42ski/0.5ML Suspension Rec 0.5 milliliters intramuscular x 1 1units Joshua Varma, 03/01/2024 Thhxuigm87-142-40hn Capsules 1 po q 4 hours prn. Do not exceed 6/day 14caps G44.209 Joshua Varma, DO 03/01/2024 Multivitamin AdultTablets 1 by mouth every day Unknown Nusao97ia Tablets 1 by mouth every day N95.1 Unknown Calcium 359832rd Tablets 1 by mouth once a day Unknown Stool SoftenerCapsules 1 by mouth every day Unknown History Medications Tbctpwamaz687je Tablets take 1 tablet by mouth every 6-8 hours as needed for pain/muscle spasms 90tabs M51.16 David Amezcua JR, DO 06/17/2024 - 06/17/2024 Ztjetjjgks805an Capsules 1 by mouth every night at bedtime day 1, 1 by mouth twice a day day 2, then 1 by mouth three times a day 90caps M51.16 Joshua Varma, 05/23/2024 - 08/22/2024 Pudcnaydqy33xb Tablets 4 tabs by mouth days 1-2, [...] PA-C 02/09/2024 Injection Kenalog 10 MG ND [id number] Joshua Varma, 1 12/03/2022 Injection Ketorolac Trometha mine Per 15 mg/.5cc (Toradol)Injection Raven perez MD 07/03/2023 Injection Methylprednisolone Acetate 20 MGInjection Raven Lord MD Injection Kenalog 10 MG NDC [id number] Joshua Varma, DO 0 05/31/2021 Injection Methylprednisolone Acetate 20 MGInjection Joshua Varma, DO 03/10/2021 Injection Kenalog 10 MG NDC [id number] Joshua Varma, DO 0 12/04/2020 Injection Ketorolac Trometha mine Per 15 mg/.5cc (Toradol)Injection Rivka Avina PA-C 08/28/2020 Injection Methylprednisolone Acetate 20 MGInjection Joshua Varma, DO 08/25/2020 Injection Ketorolac Trometha mine Per 15 mg/.5cc (Toradol)Injection Rivka Avina PA-C 04/22/2019 Injection Methylprednisolone Acetate 20 MGInjection Rivka Avina PA-C 04/22/2019 Immunizations CPT Code Status Date Vaccine Lot # [id number] Given 08/22/2024 Influenza Vac, Split, Preservative Free High Dose Age 65 & > [id number] 04367 Given 10/11/2023 Influenza Vaccine High Do se 0.5ML Age 65 & > [id number] 97628 Given 10/21/2021 Influenza Vaccine High Do se 0.5ML Age 65 & > [id number] 66718 Given 01/28/2021 Influenza Virus Vaccine, Quadrivalent, Im Use 26584 Given 09/30/2019 Influenza Vacci ne, Inactivated, Subunit, Adjuvanted, For Intrmusc [id number] 28657 Given 02/25/2019 Pneumococcal Vaccine/Pneu movax 23 [id number] 70703 Given 09/21/2017 Zostavax Vaccine 54250 Given 09/14/2017 Pneumococcal Conjugate-Pr evnar 13 [id number] 75735 Given 09/14/2017 Influenza Vac, Split, Preservative Free High Dose Age 65 & > [id number] Given 07/07/2016 Tdap (Tetanus, diphtheria & acel. pertussis) Adacel or Boostrix [id number] 14322 Refused 08/22/2024 Shingrix 27200 Refused 06/17/2024 Moderna Sars-Co v-2 (Cov-19) vacc,100 mcg/ 0.5 mL 12Y+EMR Doc Only 22238 Refused 02/22/2023 Moderna Sars-Co v-2 (Cov-19) vacc,100 mcg/ 0.5 mL 12Y+EMR Doc Only 67656 Refused 02/15/2021 Moderna Sars-Co v-2 (Cov-19) vacc,100 mcg/ 0.5 mL 12Y+EMR Doc Only 57956 Refused 12/04/2020 Shingrix 05058 Refused 07/03/2017 Influenza Virus Vaccine, Quadrivalent, Im Use 41151 Refused 03/02/2017 Zostavax Vaccine 38016 Refused 03/02/2017 Pneumococcal Vaccine/Pneu movax 23 [id number] Refused 03/02/2017 Influenza Virus Vaccine, Quadrivalent, Im Use 58400 Refused 03/02/2017 Pneumococcal Conjugate-Pr evnar 13 Vital [...] Range N ote Laboratory test finding 09/03/2024 [facility]. [address] [place] [address] Potassium 4.9 mEq/L 3.5-5.0 1 Comp. Met 09/02/2024 [facility]. [address] [place], [place] [address] Glucose 97 mg/dL 70-110 BUN 21 mg/dL [...] GFR 104 ML/MIN/1.7 3SQM >60 Lipid 09/02/2024 [facility]. [address] [place] [address] Cholesterol 212 mg/dL High 0-200 2 Triglyceride 98 mg/dL 0-150 3 HDLD 75 mg/dL See Comment 4 Measured LDL 124 mg/dL 0-130 5 Calc VLDL 19.6 mg/dL See Comment 6 Chol/HDL 2.8 RATIO See Comment 7 Non-HDL 137 mg/dL See Comment 8 CBC W/Diff 09/02/2024 [facility]. [address] [place], [place] [id number] WBC 7.2 10^3/M3 3.1-9.2 RBC 4.81 10^6/M3 3.70-5.50 HGB 14.7 GR/DL 11.5-16.1 HCT 43.8 % 34.5-47.8 MCV 90.9 CUMICR 82.6-95.8 MCH 30.5 PICOGR 27.9-32.9 MCHC 33.5 % 32.6-35.4 RDW 13.3 % 11.4-14.6 PLT 265 10^3/M3 140-350 MPV 7.5 CUMICR 7.0-10.6 %Neut 53.4 % 40.0-75.0 %Lymph 34.4 % 17.0-45.0 %[place] 6.2 % 1.0-11.0 %Eos 4.9 % 0.0-6.0 %Baso 1.1 % 0.0-2.0 #Neut 3.8 10^3/M3 1.5-8.0 #Lymph 2.5 10^3/M3 0.8-3.2 #[place] 0.4 10^3/M3 0.0-0.8 #Eos 0.4 10^3/m3 0.0-0.4 #Baso 0.1 10^3/m3 0.0-0.2 Laboratory test finding 09/02/2024 [facility]. [address] [place], [place] [id number] FRT4 0.87 ng/dL 0.75-1.54 TSH 1.30 uIU/mL 0.50-6.00 Iron Panel([employer]) 09/02/2024 [facility]. [address] [place] [address] Iron 92 g /dL 25-140 % Saturation 33 % 30-35 Tibc 09/02/2024 [facility]. [address] [place] [address] Tibc 277 g /dL 260-400 Transferrin 198 mg/dL Low 200-400 Laboratory test finding 04/22/2024 [facility]. [address] [place] [address] [phone] Potassium 4.8 mEq/L 3.5-5.0 Laboratory test finding 03/29/2024 [facility]. [address] [place] [address] [phone] Potassium 5.2 mEq/L High 3.5-5.0 BMP 03/26/2024 [facility]. [address] [place] [address] Glucose 88 mg/dL 70-110 BUN 28 mg/dL High 6-25 Creatinine 0.9 mg/dL 0.5-1.2 Sodium 140 mEq/L 135-145 Potassium 5.5 mEq/L High 3.5-5.0 Chloride 101 mEq/L 95-107 Co-2 27 mEq/L 24-31 Calcium 10.2 mg/dL 8.5-10.6 GFR 65 ML/MIN/1.7 3SQM >60 Laboratory test finding 03/08/2024 [facility]. [address] [place] [address] Potassium 5.1 mEq/L High 3.5-5.0 1 CRITICAL RESULTS ARIANNA IFIED, FAXED, AND CALLED TO HANNA @ 6374 09/03/2024 [place] 2 CHOLESTEROL Less than 200mg/dl Low risk [...] Target Procedures Date Code Description Status 09/03/2024 97143 Venipuncture Routine Complet ed 09/02/2024 53777 Venipuncture Routine Complet ed 08/22/2024 G9920 Scrning Perf And Negative Co mpleted 08/22/2024 G0008 Influenza Admin Completed 06/17/2024 J1885 Injection Ketoro lac Tromethamine Per 15 mg/.5cc (Toradol) Completed 05/23/2024 J1885 Injection Ketoro lac Tromethamine Per 15 mg/.5cc (Toradol) Completed 04/22/2024 93416 Venipuncture Routine Complet ed 04/17/2024 90758868 Mammogram Completed 03/29/2024 73466 Venipuncture Routine Complet ed 03/26/2024 48033 Venipuncture Routine Complet ed 03/08/2024 93895 Venipuncture Routine Complet ed 01/28/2021 36951291 Colonoscopy Completed 08/22/2019 117021587 Bone Mineral Density Test Co mpleted Medical Devices Description No Information Available Encounters Type Date Location Provider Dx Diagnosis Office Visit 08/22/2024 8:30a Tanja Avina PA-C 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, lumbar region Z01.818 Encounter for other preprocedural examination Z23 Encounter for immuni zation Office Visit 06/17/2024 8:45a Tanja afrah PA-C M51.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 disc disorders w radiculopathy, lumbar region Office Visit 05/23/2024 3:00p Tanja Forbes PA-C M51.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 disc disorders w radiculopathy, lumbar region Assessments Date Code Description Provider 09/03/2024 R79.89 Other specified abnormal findings of blood chemistry Lab - [place] 09/02/2024 Z00.01 Encounter for [facility] adult medical examination with abnormal findings Lab - [place] 09/02/2024 E78.2 Mixed hyperlipidemia Lab - [facility] 09/02/2024 Z85.3 Personal history of malignant neoplasm of breast Lab - [place] 09/02/2024 N95.1 Menopausal and female climac teric states Lab - [place] 09/02/2024 R79.89 Other specified abnormal findings of blood chemistry Lab - [place] 08/22/2024 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 [...] MD, PhD 04/22/2024 [facility]87.5 [facility] E87.5 Hyperkalemia Joshua Varma, DO 03/29/2024 E87.5 [facility] E87.5 Hyperkalemia Joshua Varma, DO 03/26/2024 E87.5 [facility]/08/2024 R79.89 Other specified abnormal findings of blood chemistry Joshua Varma, DO 03/08/2024 R79.89 Other specified abnormal findings of blood chemistry Lab - [place] Plan of Treatment Future Appointment(s):* 09/27/2024 9:00 am - Rivka Avina PA-C at [place] 08/22/2024 - Rivka Avina PA-C* E04.1 Nontoxic [...] Status Appt Papito Wood M.D. Closed 07/19 [facility] [address] [id number] [phone]"
--- OUTSIDE RECORDS SUMMARY | 2024-09-11 11:23 | External Medical Summary ---
Author Name Unknown Address Unknown Organization [facility]:[address] [place] [address] Laboratory Report Ordering Provider Test Date Status BRENDA EVANS 09/02/2024 07:22 Final Observation Date Value Abnormality Reference (Units ) Status Cholesterol 09/02/2024 15:06 212 Above high normal 0-2 00 (MG/DL) Final CHOLESTEROL
Less than 2 00mg/dl Low risk
201-239 mg/dl Borderline risk
Equal to or greater 240mg/dl High risk Triglyceride 09/02/2024 15:06 98 0-150 (MG/ DL) Final TRIGLYCERIDES
Less than 150mg/dl Normal
150-199mg/dl Borderline
200-499mg/dl High
Greater than 500mg/dl Very High HDL 09/02/2024 15:06 75 SEE COMMENT ( MG/DL) Final HDL
<40mg/dl Elevated R isk
41-59mg/dl Risk
>=60mg/dl Least Risk Cholesterol in LDL [Mass/vol ume] in Serum or Plasma 09/02/2024 15:06 124 0-130 (MG/DL) Final LDL
<100mg/dl Optimal<b r/> 100-129mg/dl Near Optimal
130-159mg/dl Borderline High
160-189mg/dl High
>=190 Very High Cholesterol in VLDL [Mass/vo lume] in Serum or Plasma 09/02/2024 15:06 19.6 SEE COMMENT (MG/DL ) Final VLDL
Less than 30mg/dl Normal HDL 09/02/2024 15:06 2.8 SEE COMMENT ( RATIO) Final CHOL/HDL
<4.0 Optimal<b r/> 4.0-5.0 Borderline
>6.0 High Risk NON-HDL 09/02/2024 15:06 137 SEE COMMENT ( MG/DL) Final NON-HDL
30mg/dl higher than LDL Target Performing Location [facility] [address] [place] [address]
--- OUTSIDE RECORDS SUMMARY | 2024-09-11 11:23 | External Medical Summary ---
Author Name Unknown Address Unknown Organization K1C:[facility] [address] [place] [address] Laboratory Report Ordering Provider Test Date Status BRENDA EVANS 09/02/2024 07:22 Final Observation Date Value Abnormality Reference (Units ) Status Iron-binding capacity 09/02/2024 15:06 277 260-400 (ug/dL) Final Transferrin 09/02/2024 15:06 198 Below low normal 200-400 (mg/dL) Final Performing Location [facility] [address] [place] [address]
--- OUTSIDE RECORDS SUMMARY | 2024-09-11 11:23 | External Medical Summary ---
Author Name Unknown Address Unknown Organization K1C:[facility] [address] [place] [address] Laboratory Report Ordering Provider Test Date Status BRENDA EVANS 09/02/2024 07:22 Final Observation Date Value Abnormality Reference (Units ) Status T4, Free 09/02/2024 15:07 0.87 0.75-1.54 (ng /dL) Final Performing Location [facility] [address] [place] [address]
--- OUTSIDE RECORDS SUMMARY | 2024-09-11 11:23 | External Medical Summary ---
Author Name Unknown Address Unknown Organization K1C:[facility] [address] [place] [address] Laboratory Report Ordering Provider Test Date Status ARSEN EVANSE 09/03/2024 11:34 Final Observation Date Value Abnormality Reference (Units ) Status Potassium 09/03/2024 14:48 4.9 3.5-5.0 (MEQ/ L) Final CRITICAL RESULTS VERIFIED, F AXED, AND CALLED TO HANNA @ 3590 09/03/2024 [facility] Performing Location [facility] [address] [place] [address]
--- OUTSIDE RECORDS SUMMARY | 2024-09-11 11:23 | External Medical Summary ---
Author Name Unknown Address Unknown Organization K1C:[facility] [address] [place] [address] Laboratory Report Ordering Provider Test Date Status BRENDA EVANS 09/02/2024 07:22 Final Observation Date Value Abnormality Reference (Units ) Status Iron 09/02/2024 15:06 92 25-140 (ug/dL ) Final Performing Location [facility] [address] [place] [address]
--- OUTSIDE RECORDS SUMMARY | 2024-09-11 11:23 | External Medical Summary | Continuity of Care Document ---
Author Name Unknown Organization [place] Address [address], [place] [address] Phone [phone] Care Team Providers Care Physics Faculty Member Name Role Phone Papito Glover M.D. Care Team Information Rece iver [phone] Problems Active Problems Provider Date Right side [...] Order ing Provider Date Aspirin 81 Low Hfok64vw Chewtabs 1 by mouth every day 90units Joshua Varma, DO 08/22/2024 Vitamin D3 Maximum Oyukkpsc465zgw (5000 Ut) Capsules 1 by mouth every day 90caps Joshua Varma, DO 08/22/2024 Xilhases54eg Tablets 1 by mouth tab every 8 hours as needed pain/muscle spasm 90tabs David Amezcua JR, DO 06/17/2024 Fluocinolone Acetonide0.01% Oil 5 gtt in affected ears bid x 7 days prn 20ml Joshua Varma, 03/14/2024 Yaoubxlz91xfe/0.5ML Suspension Rec 0.5 milliliters intramuscular x 1 1units Joshua Varma, DO 03/01/2024 Gkddixni27-032-93fd Capsules 1 po q 4 hours prn. Do not exceed 6/day 14caps G44.209 Joshua Varma, DO 03/01/2024 Multivitamin AdultTablets 1 by mouth every day Unknown Ydpdl11nl Tablets 1 by mouth every day N95.1 Unknown Calcium 173739dq Tablets 1 by mouth once a day Unknown Stool SoftenerCapsules 1 by mouth every day Unknown History Medications Rvikyozksh181xw Tablets take 1 tablet by mouth every 6-8 hours as needed for pain/muscle spasms 90tabs M51.16 David Amezcua JR, DO 06/17/2024 - 06/17/2024 Tewowkysgv379fx Capsules 1 by mouth every night at bedtime day 1, 1 by mouth twice a day day 2, then 1 by mouth three times a day 90caps M51.16 Joshua Varma, DO 05/23/2024 - 08/22/2024 Ozveanotdl15ce Tablets 4 tabs by mouth days 1-2, [...] Avina PA-C 02/09/2024 Injection Kenalog 10 MG [facility] 07076147729Hpjlshjhh Joshua Varma, 1 12/03/2022 Injection Ketorolac Trometha mine Per 15 mg/.5cc (Toradol)Injection Raven perez MD 07/03/2023 Injection Methylprednisolone Acetate 20 MGInjection Raven Lord MD Injection Kenalog 10 MG NDC 18277726547Nblzjcelk Joshua Varma, DO 0 05/31/2021 Injection Methylprednisolone Acetate 20 MGInjection Joshua Varma, DO 03/10/2021 Injection Kenalog 10 MG NDC 21672920079Eyvkiedir Joshua Varma, DO 0 12/04/2020 Injection Ketorolac Trometha mine Per 15 mg/.5cc (Toradol)Injection Rivka Avina PA-C 08/28/2020 Injection Methylprednisolone Acetate 20 MGInjection Joshua Varma, DO 08/25/2020 Injection Ketorolac Trometha mine Per 15 mg/.5cc (Toradol)Injection Rivka Avina PA-C 04/22/2019 Injection Methylprednisolone Acetate 20 MGInjection Rivka Avina PA-C 04/22/2019 Immunizations CPT Code Status Date Vaccine Lot # [id number] Given 08/22/2024 Influenza Vac, Split, Preservative Free High Dose Age 65 & > [id number] 25987 Given 10/11/2023 Influenza Vaccine High Do se 0.5ML Age 65 & > [id number] 09536 Given 10/21/2021 Influenza Vaccine High Do se 0.5ML Age 65 & > [id number] 66250 Given 01/28/2021 Influenza Virus Vaccine, Quadrivalent, Im Use 55200 Given 09/30/2019 Influenza Vacci ne, Inactivated, Subunit, Adjuvanted, For Intrmusc 811414 46699 Given 02/25/2019 Pneumococcal Vaccine/Pneu movax 23 [id number] 96012 Given 09/21/2017 Zostavax Vaccine 50226 Given 09/14/2017 Pneumococcal Conjugate-Pr evnar 13 [id number] 84455 Given 09/14/2017 Influenza Vac, Split, Preservative Free High Dose Age 65 & > [id number] 60884 Given 07/07/2016 Tdap (Tetanus, diphtheria & acel. pertussis) Adacel or Boostrix [id number] 49134 Refused 08/22/2024 Shingrix 21354 Refused 06/17/2024 Moderna Sars-Co v-2 (Cov-19) vacc,100 mcg/ 0.5 mL 12Y+EMR Doc Only 19423 Refused 02/22/2023 Moderna Sars-Co v-2 (Cov-19) vacc,100 mcg/ 0.5 mL 12Y+EMR Doc Only 80774 Refused 02/15/2021 Moderna Sars-Co v-2 (Cov-19) vacc,100 mcg/ 0.5 mL 12Y+EMR Doc Only 46831 Refused 12/04/2020 Shingrix 06402 Refused 07/03/2017 Influenza Virus Vaccine, Quadrivalent, Im Use 38503 Refused 03/02/2017 Zostavax Vaccine 45789 Refused 03/02/2017 Pneumococcal Vaccine/Pneu movax 23 50819 Refused 03/02/2017 Influenza Virus Vaccine, Quadrivalent, Im Use 81679 Refused 03/02/2017 Pneumococcal Conjugate-Pr evnar 13 Vital [...] H/L Range N ote Laboratory test finding 04/22/2024 [facility]. [address] [place], [place] [id number] [phone] Potassium 4.8 mEq/L 3.5-5.0 Laboratory test finding 03/29/2024 [facility] [address] [place], [place] 1125068 [phone] Potassium 5.2 mEq/L High 3.5-5.0 BMP 03/26/2024 [facility] [address] [place], [place] [address]69[address] [phone] Glucose 88 mg/dL 70-110 BUN 28 mg/dL High 6-25 Creatinine 0.9 mg/dL 0.5-1.2 Sodium 140 mEq/L 135-145 Potassium 5.5 mEq/L High 3.5-5.0 Chloride 101 mEq/L 95-107 Co-2 27 mEq/L 24-31 Calcium 10.2 mg/dL 8.5-10.6 GFR 65 ML/MIN/1.73 SQM >60 Laboratory test finding 03/08/2024 [facility] [address] [place] [address] [phone] Potassium 5.1 mEq/L High 3.5-5.0 Procedures Date Code Description Status 08/22/2024 G9920 Scrning Perf And Negative Co mpleted 08/22/2024 G0008 Influenza Admin Completed 06/17/2024 J1885 Injection Ketoro lac Tromethamine Per 15 mg/.5cc (Toradol) Completed 05/23/2024 J1885 Injection Ketoro lac Tromethamine Per 15 mg/.5cc (Toradol) Completed 04/22/2024 42896 Venipuncture Routine Complet ed 04/17/2024 84887225 Mammogram Completed 03/29/2024 43259 Venipuncture Routine Complet ed 03/26/2024 02412 Venipuncture Routine Complet ed 03/08/2024 36635 Venipuncture Routine Complet ed 01/28/2021 97697112 Colonoscopy Completed 08/22/2019 621886142 Bone Mineral Density Test Co mpleted Medical Devices Description No Information Available Encounters Type Date Location Provider Dx Diagnosis Office Visit 08/22/2024 8:30a [place] Av[place] PA-C 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, lumbar region Z01.818 Encounter for other preprocedural examination Z23 Encounter for immuni zation Office Visit 06/17/2024 8:45a Tanja farah PA-C M51.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 disc disorders w radiculopathy, lumbar region Office Visit 05/23/2024 3:00p [place] Forbes PA-C M51.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 disc disorders w radiculopathy, lumbar region Assessments Date Code Description Provider 08/22/2024 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 [...] 03/26/2024 E87.5 Hyperkalemia Lab - [place] [facility] 03/08/2024 R79.89 Other specified abnormal findings of blood chemistry Joshua Varma, DO 03/08/2024 R79.89 Other specified abnormal findings of blood chemistry Lab - [place] Plan of Treatment Future Appointment(s):* 09/27/2024 9:00 am - Rivka Avina PA-C at [place] * 09/02/2024 7:30 am - [facility] - [place] [facility] [place] 08/22/2024 - Rivka Avina PA-C* E04.1 Nontoxic single thyroid nodule* New Xrays:* Ultrasound Head And Neck Soft Tissues, Ordered: 08/22/24 * Follow up:* thyroid u/s * M51.16 [...] Status Appt Papito Wood M.D. Closed 07/19 [facility] [address] [address] [phone]"
--- OUTSIDE RECORDS SUMMARY | 2024-09-11 11:23 | External Medical Summary ---
Author Name Unknown Address Unknown Organization [facility]:[address] [place] [address] Laboratory Report Ordering Provider Test Date Status BRENDA EVANS 09/02/2024 07:22 Final Observation Date Value Abnormality Reference (Units ) Status WBC 09/02/2024 10:34 7.2 3.1-9.2 (10^3 /M3) Final RBC 09/02/2024 10:34 4.81 3.70-5.50 (10 ^6/M3) Final Hemoglobin 09/02/2024 10:34 14.7 11.5-16.1 (G R/DL) Final HCT 09/02/2024 10:34 43.8 34.5-47.8 (%) Final MCV 09/02/2024 10:34 90.9 82.6-95.8 (CU MICR) Final MCH 09/02/2024 10:34 30.5 27.9-32.9 (PI CO GR) Final MCHC 09/02/2024 10:34 33.5 32.6-35.4 (%) Final RDW 09/02/2024 10:34 13.3 11.4-14.6 (%) Final PLT 09/02/2024 10:34 265 140-350 (10^3 /M3) Final MPV 09/02/2024 10:34 7.5 7.0-10.6 (CU MICR) Final Neutrophils/100 leukocytes in Blood 09/02/2024 10:34 53.4 40.0-75.0 (%) Fin al Lymphs % 09/02/2024 10:34 34.4 17.0-45.0 (%) Final Monos 09/02/2024 10:34 6.2 1.0-11.0 (%) Final %EOS 09/02/2024 10:34 4.9 0.0-6.0 (%) F inal Basos 09/02/2024 10:34 1.1 0.0-2.0 (%) F inal Neutrophils [#/volume] in [place] by Manual count 09/02/2024 10:34 3.8 1.5-8.0 (10^ 3/M3) Final Lymphs % 09/02/2024 10:34 2.5 0.8-3.2 (10^3 /M3) Final Monos 09/02/2024 10:34 0.4 0.0-0.8 (10^3 /M3) Final #EOS 09/02/2024 10:34 0.4 0.0-0.4 (10^3 /m3) Final #BASO 09/02/2024 10:34 0.1 0.0-0.2 (10^3 /m3) Final Performing Location [facility] [address] [place] [address]
--- OUTSIDE RECORDS SUMMARY | 2024-09-11 11:23 | External Medical Summary | Continuity of Care Document ---
Author Name Unknown Organization [facility] Address [address] [place] [address] Phone [phone] Care Team Providers Care Delineator Name Role Phone Papito Glover M.D. Care Team Information Rece iver [phone] Problems Active Problems Provider Date Right side [...] Order ing Provider Date Aspirin 81 Low Elmo40fz Chewtabs 1 by mouth every day 90units Joshua Varma, DO 08/22/2024 Vitamin D3 Maximum Vwnmtsto147dqs (5000 Ut) Capsules 1 by mouth every day 90caps Joshua Varma DO 08/22/2024 Veksgclb66ko Tablets 1 by mouth tab every 8 hours as needed pain/muscle spasm 90tabs David Amezcua JR, DO 06/17/2024 Fluocinolone Acetonide0.01% Oil 5 gtt in affected ears bid x 7 days prn 20ml Joshua Varma, 03/14/2024 Ljmjmjwo94wul/0.5ML Suspension Rec 0.5 milliliters intramuscular x 1 1units Joshua Varma, 03/01/2024 Lpmdmkku09-735-72wp Capsules 1 po q 4 hours prn. Do not exceed 6/day 14caps G44.209 Joshua Varma, DO 03/01/2024 Multivitamin AdultTablets 1 by mouth every day Unknown Segdi39pd Tablets 1 by mouth every day N95.1 Unknown Calcium [id number] Tablets 1 by mouth once a day Unknown Stool SoftenerCapsules 1 by mouth every day Unknown History Medications Zcnklcikjk545tk Tablets take 1 tablet by mouth every 6-8 hours as needed for pain/muscle spasms 90tabs M51.16 David Amezcua JR, DO 06/17/2024 - 06/17/2024 Egrxmvmmfm148ds Capsules 1 by mouth every night at bedtime day 1, 1 by mouth twice a day day 2, then 1 by mouth three times a day 90caps M51.16 Joshua Varma, 05/23/2024 - 08/22/2024 Inpqkxmtau86mt Tablets 4 tabs by mouth days 1-2, [...] PA-C 02/09/2024 Injection Kenalog 10 MG ND [id number] Joshua Varma, 1 12/03/2022 Injection Ketorolac Trometha mine Per 15 mg/.5cc (Toradol)Injection Raven perez MD 07/03/2023 Injection Methylprednisolone Acetate 20 MGInjection Raven Lord MD Injection Kenalog 10 MG NDC [id number] Joshua Varma, DO 0 05/31/2021 Injection Methylprednisolone Acetate 20 MGInjection Joshua Varma, DO 03/10/2021 Injection Kenalog 10 MG NDC [id number] Joshua Varma, DO 0 12/04/2020 Injection Ketorolac Trometha mine Per 15 mg/.5cc (Toradol)Injection Rivka Avina PA-C 08/28/2020 Injection Methylprednisolone Acetate 20 MGInjection Joshua Varma, DO 08/25/2020 Injection Ketorolac Trometha mine Per 15 mg/.5cc (Toradol)Injection Rivka Avina PA-C 04/22/2019 Injection Methylprednisolone Acetate 20 MGInjection Rivka Avina PA-C 04/22/2019 Immunizations CPT Code Status Date Vaccine Lot # [id number] Given 08/22/2024 Influenza Vac, Split, Preservative Free High Dose Age 65 & > [id number] Given 10/11/2023 Influenza Vaccine High Do se 0.5ML Age 65 & > [id number] 73206 Given 10/21/2021 Influenza Vaccine High Do se 0.5ML Age 65 & > [id number] 18406 Given 01/28/2021 Influenza Virus Vaccine, Quadrivalent, [place] Use 23295 Given 09/30/2019 Influenza Vacci ne, Inactivated, Subunit, Adjuvanted, For Intrmusc [id number] 85724 Given 02/25/2019 Pneumococcal Vaccine/Pneu movax 23 [id number] 86916 Given 09/21/2017 Zostavax Vaccine 48108 Given 09/14/2017 Pneumococcal Conjugate-Pr evnar 13 [id number] 23597 Given 09/14/2017 Influenza Vac, Split, Preservative Free High Dose Age 65 & > [id number] Given 07/07/2016 Tdap (Tetanus, diphtheria & acel. pertussis) Adacel or Boostrix [id number] Refused 08/22/2024 Shingrix 20212 Refused 06/17/2024 Moderna Sars-Co v-2 (Cov-19) vacc,100 mcg/ 0.5 mL 12Y+EMR Doc Only 37925 Refused 02/22/2023 Moderna Sars-Co v-2 (Cov-19) vacc,100 mcg/ 0.5 mL 12Y+EMR Doc Only 24603 Refused 02/15/2021 Moderna Sars-Co v-2 (Cov-19) vacc,100 mcg/ 0.5 mL 12Y+EMR Doc Only 63121 Refused 12/04/2020 Shingrix 46172 Refused 07/03/2017 Influenza Virus Vaccine, Quadrivalent, Im Use 11898 Refused 03/02/2017 Zostavax Vaccine 06023 Refused 03/02/2017 Pneumococcal Vaccine/Pneu movax 23 10141 Refused 03/02/2017 Influenza Virus Vaccine, Quadrivalent, Im Use 73157 Refused 03/02/2017 Pneumococcal Conjugate-Pr evnar 13 Vital [...] Range N ote Laboratory test finding 09/03/2024 [facility] [address] [place] [address] [phone] Potassium 4.9 mEq/L 3.5-5.0 1 Comp. Met 09/02/2024 [facility] [address] [place], [place] [id number] Glucose 97 mg/dL 70-110 BUN 21 mg/dL [...] GFR 104 ML/MIN/1.7 3SQM >60 Lipid 09/02/2024 [facility] [address] [place] [address] Cholesterol 212 mg/dL High 0-200 2 Triglyceride 98 mg/dL 0-150 3 HDLD 75 mg/dL See Comment 4 Measured LDL 124 mg/dL 0-130 5 Calc VLDL 19.6 mg/dL See Comment 6 Chol/HDL 2.8 RATIO See Comment 7 Non-HDL 137 mg/dL See Comment 8 CBC W/Diff 09/02/2024 [facility] [address] [place], [place] [id number] WBC 7.2 10^3/M3 3.1-9.2 RBC 4.81 10^6/M3 3.70-5.50 HGB 14.7 GR/DL 11.5-16.1 HCT 43.8 % 34.5-47.8 MCV 90.9 CUMICR 82.6-95.8 MCH 30.5 PICOGR 27.9-32.9 MCHC 33.5 % 32.6-35.4 RDW 13.3 % 11.4-14.6 PLT 265 10^3/M3 140-350 MPV 7.5 CUMICR 7.0-10.6 %Neut 53.4 % 40.0-75.0 %Lymph 34.4 % 17.0-45.0 %Bates 6.2 % 1.0-11.0 %Eos 4.9 % 0.0-6.0 %Baso 1.1 % 0.0-2.0 #Neut 3.8 10^3/M3 1.5-8.0 #Lymph 2.5 10^3/M3 0.8-3.2 #Bates 0.4 10^3/M3 0.0-0.8 #Eos 0.4 10^3/m3 0.0-0.4 #Baso 0.1 10^3/m3 0.0-0.2 Laboratory test finding 09/02/2024 [facility] [address] [place], [place] [address] FRT4 0.87 ng/dL 0.75-1.54 TSH 1.30 uIU/mL 0.50-6.00 Iron Panel([facility]) 09/02/2024 [facility] [address] [place] [address] Iron 92 g /dL 25-140 % Saturation 33 % 30-35 Tibc 09/02/2024 [facility] [address] [place] [address] [phone] Tibc 277 g /dL 260-400 Transferrin 198 mg/dL Low 200-400 Laboratory test finding 04/22/2024 [facility] [address] [place] [address] Potassium 4.8 mEq/L 3.5-5.0 Laboratory test finding 03/29/2024 [facility] [address] [place] [address] Potassium 5.2 mEq/L High 3.5-5.0 BMP 03/26/2024 [facility] [address] [place] [address] [phone] Glucose 88 mg/dL 70-110 BUN 28 mg/dL High 6-25 Creatinine 0.9 mg/dL 0.5-1.2 Sodium 140 mEq/L 135-145 Potassium 5.5 mEq/L High 3.5-5.0 Chloride 101 mEq/L 95-107 Co-2 27 mEq/L 24-31 Calcium 10.2 mg/dL 8.5-10.6 GFR 65 ML/MIN/1.7 3SQM >60 Laboratory test finding 03/08/2024 [facility] [address] [place] [address] Potassium 5.1 mEq/L High 3.5-5.0 1 CRITICAL RESULTS ARIANNA IFIED, FAXED, AND CALLED TO HANNA @ [phone] 09/03/2024 [facility] 2 CHOLESTEROL Less than 200mg/dl Low risk [...] Target Procedures Date Code Description Status 09/03/2024 26977 Venipuncture Routine Complet ed 09/02/2024 99738 Venipuncture Routine Complet ed 08/22/2024 G9920 Scrning Perf And Negative Co mpleted 08/22/2024 G0008 Influenza Admin Completed 06/17/2024 J1885 Injection Ketoro lac Tromethamine Per 15 mg/.5cc (Toradol) Completed 05/23/2024 J1885 Injection Ketoro lac Tromethamine Per 15 mg/.5cc (Toradol) Completed 04/22/2024 80805 Venipuncture Routine Complet ed 04/17/2024 28211959 Mammogram Completed 03/29/2024 77492 Venipuncture Routine Complet ed 03/26/2024 16914 Venipuncture Routine Complet ed 03/08/2024 97084 Venipuncture Routine Complet ed 01/28/2021 70645382 Colonoscopy Completed 08/22/2019 [id number] Bone Mineral Density Test Co mpleted Medical [...] abnormal findings of blood chemistry Lab - [place] 09/02/[address]24 [address]00.[address] [facility] adult medical examination with abnormal findings Lab - [place] 09/02/2024 E78.2 Mixed hyperlipidemia Lab - [facility] 09/02/2024 Z85.3 Personal history of malignant neoplasm of breast Lab - [place] 09/02/2024 N95.1 Menopausal and female climac teric states Lab - [place] 09/02/2024 R79.89 Other specified abnormal findings of blood chemistry Lab - [place] 08/22/2024 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 [...] MD, PhD 04/22/2024 E87.5 [facility] E87.5 Hyperkalemia Joshua Varma, DO 03/29/2024 E87.5 [facility] E87.5 Hyperkalemia Joshua Varma, DO 03/26/2024 E87.5 [facility] 03/08[facility]24 R79.89 Other specified abnormal findings of blood chemistry Joshua Varma, DO 03/08/2024 R79.89 Other specified abnormal findings of blood chemistry Lab - [place] Plan of Treatment Future Appointment(s):* 09/27/2024 9:00 am - Rivka Avina PA-C at [place] 08/22/2024 - Rivka Avina PA-C* E04.1 Nontoxic [...] Appt Papito Wood M.D. Closed 07/19 [facility] [address] [phone]"
--- OUTSIDE RECORDS SUMMARY | 2024-09-11 11:23 | External Medical Summary | Continuity of Care Document ---
Author Name Unknown Organization [place] Address [address], [place] [address] Phone [phone] Care Team Providers Care Paralegal Name Role Phone Papito Glover M.D. Care Team Information Rece iver [phone] Problems Active Problems Provider Date Right side [...] Order ing Provider Date Aspirin 81 Low Yrnc71dg Chewtabs 1 by mouth every day 90units Joshua Varma, DO 08/22/2024 Vitamin D3 Maximum Honptwbf392uwg (5000 Ut) Capsules 1 by mouth every day 90caps Joshua Varma, DO 08/22/2024 Fmseioby00bf Tablets 1 by mouth tab every 8 hours as needed pain/muscle spasm 90tabs David Amezcua JR, DO 06/17/2024 Fluocinolone Acetonide0.01% Oil 5 gtt in affected ears bid x 7 days prn 20ml Joshua Varma, 03/14/2024 Plpdejad92krv/0.5ML Suspension Rec 0.5 milliliters intramuscular x 1 1units Joshua Varma, DO 03/01/2024 Piltrefk12-925-06df Capsules 1 po q 4 hours prn. Do not exceed 6/day 14caps G44.209 Joshua Varma, DO 03/01/2024 Multivitamin AdultTablets 1 by mouth every day Unknown Mjgwu60ps Tablets 1 by mouth every day N95.1 Unknown Calcium 053680au Tablets 1 by mouth once a day Unknown Stool SoftenerCapsules 1 by mouth every day Unknown History Medications Mjoqavarhs588mv Tablets take 1 tablet by mouth every 6-8 hours as needed for pain/muscle spasms 90tabs M51.16 David Amezcua JR, DO 06/17/2024 - 06/17/2024 Habtgkkooa957af Capsules 1 by mouth every night at bedtime day 1, 1 by mouth twice a day day 2, then 1 by mouth three times a day 90caps M51.16 Joshua Varma, DO 05/23/2024 - 08/22/2024 Dobukavqgr67nj Tablets 4 tabs by mouth days 1-2, 3 tabs by mouth days 3-4, 2 tabs by mouth days 5-6, 1 tab by mouth day 7-8 20tabs M51.16 Joshua Varma, DO 05/23/2024 - 05/31/2024 Hydrocortisone-Acetic Acid1-2% Solution 3-5 drops both ears four times a day for 7-10 days prn 10ml L29.8 Joshua Varma, DO 03/01/2024 - 03/14/2024 Medications Administered in Office Medication SIG Qnty Indications Ordering Provider Date Injection Ketorolac Trometha mine Per 15 mg/.5cc (Toradol)Injection Everett Cuenca PA-C 06/17/2024 Injection Ketorolac Trometha mine Per 15 mg/.5cc (Toradol)Injection Rivka Avina PA-C 05/23/2024 Injection Ketorolac Trometha mine Per 15 mg/.5cc (Toradol)Injection Rivka Avina PA-C 02/09/2024 Injection Methylprednisolone Acetate 20 MGInjection Rivka Avina PA-C 02/09/2024 Injection Kenalog 10 MG NDC [id number] Joshua Varma, DO 1 12/03/2022 Injection Ketorolac Trometha mine Per 15 mg/.5cc (Toradol)Injection Raven perez MD 07/03/2023 Injection Methylprednisolone Acetate 20 MGInjection Raven Lord MD Injection Kenalog 10 MG NDC [id number] Joshua Varma, DO 0 05/31/2021 Injection Methylprednisolone Acetate 20 MGInjection Joshua Varma, DO 03/10/2021 Injection Kenalog 10 MG NDC [id number] Joshua Varma, DO 0 12/04/2020 Injection Ketorolac Trometha mine Per 15 mg/.5cc (Toradol)Injection Rivka Avina PA-C 08/28/2020 Injection Methylprednisolone Acetate 20 MGInjection Joshua Varma, DO 08/25/2020 Injection Ketorolac Trometha mine Per 15 mg/.5cc (Toradol)Injection Rivka Avina PA-C 04/22/2019 Injection Methylprednisolone Acetate 20 MGInjection Rivka Avina PA-C 04/22/2019 Immunizations CPT Code Status Date Vaccine Lot # [id number] Given 08/22/2024 Influenza Vac, Split, Preservative Free High Dose Age 65 & > [id number] 03829 Given 10/11/2023 Influenza Vaccine High Do se 0.5ML Age 65 & > [id number] 19025 Given 10/21/2021 Influenza Vaccine High Do se 0.5ML Age 65 & > [id number] 27420 Given 01/28/2021 Influenza Virus Vaccine, [place], [place] Use 78378 Given 09/30/2019 Influenza Vacci ne, Inactivated, Subunit, Adjuvanted, For Intrmusc 696222 52537 Given 02/25/2019 Pneumococcal Vaccine/Pneu movax 23 [id number] 68356 Given 09/21/2017 Zostavax Vaccine 93639 Given 09/14/2017 Pneumococcal Conjugate-Pr evnar 13 [id number] 62221 Given 09/14/2017 Influenza Vac, Split, Preservative Free High Dose Age 65 & > [id number] 35145 Given 07/07/2016 Tdap (Tetanus, diphtheria & acel. pertussis) Adacel or Boostrix [id number] 58744 Refused 08/22/2024 Shingrix 71262 Refused 06/17/2024 Moderna Sars-Co v-2 (Cov-19) vacc,100 mcg/ 0.5 mL 12Y+EMR Doc Only 89699 Refused 02/22/2023 Moderna Sars-Co v-2 (Cov-19) vacc,100 mcg/ 0.5 mL 12Y+EMR Doc Only 36361 Refused 02/15/2021 Moderna Sars-Co v-2 (Cov-19) vacc,100 mcg/ 0.5 mL 12Y+EMR Doc Only 78140 Refused 12/04/2020 Shingrix 36017 Refused 07/03/2017 Influenza Virus Vaccine, Quadrivalent, Im Use 07225 Refused 03/02/2017 Zostavax Vaccine 36539 Refused 03/02/2017 Pneumococcal Vaccine/Pneu movax 23 [id number] Refused 03/02/2017 Influenza Virus Vaccine, Quadrivalent, Im Use 05108 Refused 03/02/2017 Pneumococcal Conjugate-Pr evnar 13 Vital [...] Range N ote Laboratory test finding 04/22/2024 [facility]. [address] [place] [address] Potassium 4.8 mEq/L 3.5-5.0 Laboratory test finding 03/29/2024 [facility] [address] [place] [address] Potassium 5.2 mEq/L High 3.5-5.0 BMP 03/26/2024 [facility] [address] [place] [address] Glucose 88 mg/dL 70-110 BUN 28 mg/dL High 6-25 Creatinine 0.9 mg/dL 0.5-1.2 Sodium 140 mEq/L 135-145 Potassium 5.5 mEq/L High 3.5-5.0 Chloride 101 mEq/L 95-107 Co-2 27 mEq/L 24-31 Calcium 10.2 mg/dL 8.5-10.6 GFR 65 ML/MIN/1.7 3SQM >60 Laboratory test finding 03/08/2024 [facility]. [address] [place] [address] [phone] Potassium 5.1 mEq/L High 3.5-5.0 Comp. Met 03/01/2024 [facility]. [address] [place] [address] Glucose 93 mg/dL 70-110 BUN 17 mg/dL 6-25 Creatinine 0.7 mg/dL 0.5-1.2 Sodium 141 mEq/L 135-145 Potassium 5.3 mEq/L High 3.5-5.0 Chloride 103 mEq/L 95-107 Co-2 29 mEq/L 24-31 Alk Phos 92 IU/L 43-122 Alt(SGPT) 17 IU/L 10-40 Ast(Sgot) 18 IU/L 3-42 T.Bilirubin 0.5 mg/dL 0.1-1.3 Calcium 9.7 mg/dL 8.5-10.6 Tot.Protein 6.7 g/dL 5.8-8.0 Albumin 4.4 g/dL 3.0-5.2 Globulin 2.3 g/dL 2.0-3.4 GFR 87 ML/MIN/1.7 3SQM >60 Lipid 03/01/2024 [facility]. [address] [place] [address] Cholesterol 225 mg/dL High 0-200 1 Triglyceride 70 mg/dL 0-150 2 HDLD 95 mg/dL See Comment 3 Measured LDL 119 mg/dL 0-130 4 Calc VLDL 14.0 mg/dL See Comment 5 Chol/HDL 2.4 RATIO See Comment 6 Non-HDL 130 mg/dL See Comment 7 CBC W/Diff 03/01/2024 [facility] [address] [place], [place] [id number] WBC 7.9 10^3/M3 3.1-9.2 RBC 4.94 10^6/M3 3.70-5.50 HGB 15.3 GR/DL 11.5-16.1 HCT 44.7 % 34.5-47.8 MCV 90.4 CUMICR 82.6-95.8 MCH 30.9 PICOGR 27.9-32.9 MCHC 34.2 % 32.6-35.4 RDW 13.7 % 11.4-14.6 PLT 253 10^3/M3 140-350 MPV 7.6 CUMICR 7.0-10.6 %Neut 64.1 % 40.0-75.0 %Lymph 26.0 % 17.0-45.0 %[place] 7.3 % 1.0-11.0 %Eos 2.0 % 0.0-6.0 %Baso 0.6 % 0.0-2.0 #Neut 5.1 10^3/M3 1.5-8.0 #Lymph 2.1 10^3/M3 0.8-3.2 #[place] 0.6 10^3/M3 0.0-0.8 #Eos 0.2 10^3/m3 0.0-0.4 #Baso 0.0 10^3/m3 0.0-0.2 Laboratory test finding 03/01/2024 [facility] [address] [place] [address] [phone] FRT4 0.99 ng/dL 0.75-1.54 TSH 1.29 uIU/mL 0.50-6.00 1 CHOLESTEROL Less than 200mg/dl Low risk 201-239 mg/dl Borderline risk Equal to or greater 240mg/dl High risk 2 TRIGLYCERIDES Less than 150mg/dl Normal 150-199mg/dl Borderline 200-499mg/dl High Greater than 500mg/dl Very High 3 HDL <40mg/dl Elevated Risk 41-59mg/dl Risk >=60mg/dl Least Risk 4 LDL <100mg/dl Optimal 100-129mg/dl Near Optimal 130-159mg/dl Borderline High 160-189mg/dl High >=190 Very High 5 VLDL Less than 30mg/dl Normal 6 CHOL/HDL <4.0 Optimal 4.0-5.0 Borderline >6.0 High Risk 7 NON-HDL 30mg/dl higher than LDL Target Procedures Date Code Description Status 08/22/2024 G9920 Scrning Perf And Negative Co mpleted 08/22/2024 G0008 Influenza Admin Completed 06/17/2024 J1885 Injection Ketoro lac Tromethamine Per 15 mg/.5cc (Toradol) Completed 05/23/2024 J1885 Injection Ketoro lac Tromethamine Per 15 mg/.5cc (Toradol) Completed 04/22/2024 81494 Venipuncture Routine Complet ed 04/17/2024 [id number] Mammogram Completed 03/29/2024 91812 Venipuncture Routine Complet ed 03/26/2024 76719 Venipuncture Routine Complet ed 03/08/2024 84136 Venipuncture Routine Complet ed 03/01/2024 71841 Venipuncture Routine Complet ed 03/01/2024 1101F PT SCR Future Fall Risk, No Fall Or 1 W/Out Injury Completed 01/28/2021 51506698 Colonoscopy Completed 08/22/2019 [id number] Bone Mineral Density Test Co mpleted Medical Devices Description No Information Available Encounters Type Date Location Provider Dx Diagnosis Office Visit 08/22/2024 8:30a Tanja Avina PA-C 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, lumbar region Z01.818 Encounter for other preprocedural examination Office Visit 06/17/2024 8:45a Tanja farah PA-C M51.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 disc disorders w radiculopathy, lumbar region Office Visit 05/23/2024 3:00p Tanja Forbes PA-C M51.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 disc disorders w radiculopathy, lumbar region Office Visit 03/01/2024 9:00a Tanaj Forbes PA-C Z00.01 Encounter for general adult medical exam w abnormal findings M51.36 Other intervertebral disc degeneration, lumbar region M50.00 Cervical disc disord er with myelopathy, unsp cervical region Z85.3 Personal history of malignant neoplasm of breast N95.1 Menopausal and femal e climacteric states E78.2 Mixed hyperlipidemia G44.209 Tension-type headach e, unspecified, not intractable E04.1 Nontoxic single thyr oid nodule Assessments Date Code Description Provider 08/22/2024 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 Rivka MARY Avina 08/22/2024 M51.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 d isc disorders with radiculopathy, lumbar region Rvikaher Fabrice PA-C 08/22/2024 Z01.818 Encounter for ot her preprocedural examination Rivkaher Fabrice PA-C 06/17/2024 M51.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 d isc disorders with radiculopathy, lumbar region Everett CuencaMARY 05/23/2024 M51.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 d isc disorders with radiculopathy, lumbar region Rivka Avina PA-C 04/22/2024 E87.5 Hyperkalemia Naila Mims MD, PhD 04/22/2024 E87.5 [facility] E87.5 Hyperkalemia Joshua Varma, DO 03/29/2024 E87.5 [facility]/26[facility] E87.5 Hyperkalemia Joshua Varma, DO 03/26/2024 E87.5 [facility] 03/08/2024 R79.89 Other specified abnormal findings of blood chemistry Joshua Varma, DO 03/08/2024 R79.89 Other specified abnormal findings of blood chemistry Lab - [place] 03/01/2024 Z00.01 Encounter for [facility] adult medical examination with abnormal findings Rivka Avina PA-C 03/01/2024 M51.36 Other interverte bral disc degeneration, lumbar region Rivka Avina PA-C 03/01/2024 M50.00 Cervical disc di sorder with myelopathy, unspecified cervical region Rivka Avina PA-C 03/01/2024 Z85.3 Personal history of malignant neoplasm of breast Rivka Avina PA-C 03/01/2024 N95.1 Menopausal and female climac teric states Rivka Avina PA-C 03/01/2024 E78.2 Mixed hyperlipidemia Rivka Avina PA-C 03/01/2024 G44.209 Tension-type hea dache, unspecified, not intractable Rivka Avina PA-C 03/01/2024 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 Rivka Avina PA-C Plan of Treatment Future Appointment(s):* 09/27/2024 9:00 am - Rivka Avina PA-C at [place] * 09/02/2024 7:30 am - [place] 08/22/2024 - Rivka Avina PA-C* E04.1 Nontoxic single thyroid nodule* New Xrays:* Ultrasound Head And Neck Soft Tissues, Ordered: 08/22/24 * Follow up:* thyroid u/s * M51.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 disc disorders with radiculopathy, lumbar region * Z01.818 Encounter for other preprocedural examination * All* New Medication:* Aspirin 81 Low Dose 81 mg - 1 by mouth every day * Vitamin D3 Maximum Strength 125 mcg (5000 Ut) - 1 by mouth every day * Follow up:* I need recent cxr from [facility] Functional Status Description No Information Available Mental Status Description No Information Available Referrals Refer to Reason for Referral Status Appt Papito Wood M.D. Closed 07/19 [facility] [address] [phone]"
--- OUTSIDE RECORDS SUMMARY | 2024-09-11 11:23 | External Medical Summary | Continuity of Care Document ---
Author Name Unknown Organization [facility] Address [address] [place] [address] Phone [phone] Care Team Providers Care Rivet Heater Name Role Phone Papito Glover M.D. Care Team Information Rece iver [phone] Problems Active Problems Provider Date Right side [...] Order ing Provider Date Aspirin 81 Low Ubrm70jt Chewtabs 1 by mouth every day 90units Joshua Varma, DO 08/22/2024 Vitamin D3 Maximum Qvxnfhik427mwk (5000 Ut) Capsules 1 by mouth every day 90caps Joshua Varma DO 08/22/2024 Drmuweog09uq Tablets 1 by mouth tab every 8 hours as needed pain/muscle spasm 90tabs David Amezcua JR, DO 06/17/2024 Fluocinolone Acetonide0.01% Oil 5 gtt in affected ears bid x 7 days prn 20ml Joshua Varma, 03/14/2024 Zjbhixns20mkr/0.5ML Suspension Rec 0.5 milliliters intramuscular x 1 1units Joshua Varma, 03/01/2024 Oubfwvhh34-193-49yq Capsules 1 po q 4 hours prn. Do not exceed 6/day 14caps G44.209 Joshua Varma, DO 03/01/2024 Multivitamin AdultTablets 1 by mouth every day Unknown Tnawe44uk Tablets 1 by mouth every day N95.1 Unknown Calcium [id number] Tablets 1 by mouth once a day Unknown Stool SoftenerCapsules 1 by mouth every day Unknown History Medications Hjufhqxlih991ls Tablets take 1 tablet by mouth every 6-8 hours as needed for pain/muscle spasms 90tabs M51.16 David Amezcua JR, DO 06/17/2024 - 06/17/2024 Pfbvtbkrhx077jf Capsules 1 by mouth every night at bedtime day 1, 1 by mouth twice a day day 2, then 1 by mouth three times a day 90caps M51.16 Joshua Varma, 05/23/2024 - 08/22/2024 Qecaqyljzf89uv Tablets 4 tabs by mouth days 1-2, [...] PA-C 02/09/2024 Injection Kenalog 10 MG ND [id number] Joshua Varma, 1 12/03/2022 Injection Ketorolac Trometha mine Per 15 mg/.5cc (Toradol)Injection Raven perez MD 07/03/2023 Injection Methylprednisolone Acetate 20 MGInjection Raven Lord MD Injection Kenalog 10 MG NDC [id number] Joshua Varma, DO 0 05/31/2021 Injection Methylprednisolone Acetate 20 MGInjection Joshua Varma, DO 03/10/2021 Injection Kenalog 10 MG NDC 14115790364Tsjxyovyv Joshua Varma, DO 0 12/04/2020 Injection Ketorolac Trometha mine Per 15 mg/.5cc (Toradol)Injection Rivka Avina PA-C 08/28/2020 Injection Methylprednisolone Acetate 20 MGInjection Joshua Varma, DO 08/25/2020 Injection Ketorolac Trometha mine Per 15 mg/.5cc (Toradol)Injection Rivka Avina PA-C 04/22/2019 Injection Methylprednisolone Acetate 20 MGInjection Rivka Avina PA-C 04/22/2019 Immunizations CPT Code Status Date Vaccine Lot # [id number] Given 08/22/2024 Influenza Vac, Split, Preservative Free High Dose Age 65 & > [id number] 59981 Given 10/11/2023 Influenza Vaccine High Do se 0.5ML Age 65 & > [id number] 17091 Given 10/21/2021 Influenza Vaccine High Do se 0.5ML Age 65 & > [id number] 12592 Given 01/28/2021 Influenza Virus Vaccine, Quadrivalent, [place] Use 58326 Given 09/30/2019 Influenza Vacci ne, Inactivated, Subunit, Adjuvanted, For Intrmusc [id number] 53478 Given 02/25/2019 Pneumococcal Vaccine/Pneu movax 23 [id number] 85233 Given 09/21/2017 Zostavax Vaccine 73128 Given 09/14/2017 Pneumococcal Conjugate-Pr evnar 13 [id number] 51459 Given 09/14/2017 Influenza Vac, Split, Preservative Free High Dose Age 65 & > [id number] 56673 Given 07/07/2016 Tdap (Tetanus, diphtheria & acel. pertussis) Adacel or Boostrix [id number] 57241 Refused 08/22/2024 Shingrix 08662 Refused 06/17/2024 Moderna Sars-Co v-2 (Cov-19) vacc,100 mcg/ 0.5 mL 12Y+EMR Doc Only [id number] Refused 02/22/2023 Moderna Sars-Co v-2 (Cov-19) vacc,100 mcg/ 0.5 mL 12Y+EMR Doc Only 30464 Refused 02/15/2021 Moderna Sars-Co v-2 (Cov-19) vacc,100 mcg/ 0.5 mL 12Y+EMR Doc Only 65249 Refused 12/04/2020 Shingrix 13801 Refused 07/03/2017 Influenza Virus Vaccine, Quadrivalent, Im Use 16072 Refused 03/02/2017 Zostavax Vaccine 98344 Refused 03/02/2017 Pneumococcal Vaccine/Pneu movax 23 [id number] Refused 03/02/2017 Influenza Virus Vaccine, Quadrivalent, Im Use 50864 Refused 03/02/2017 Pneumococcal Conjugate-Pr evnar 13 Vital [...] H/L Range N ote Laboratory test finding 09/02/2024 [facility] [address] [place] [address] FRT4 <pending> TSH <pending> Iron Panel(Medcom) 09/02/2024 [facility] [address] [place] [address] [phone] Iron <pending> Tibc <pending> % Saturation <pending> Laboratory test finding 04/22/2024 [facility] [address] [place] [address] Potassium 4.8 mEq/L 3.5-5.0 Laboratory test finding 03/29/2024 [facility] [address] [place] [address] [phone] Potassium 5.2 mEq/L High 3.5-5.0 BMP 03/26/2024 [facility] [address] [place] [address] Glucose 88 mg/dL 70-110 BUN 28 mg/dL High 6-25 Creatinine 0.9 mg/dL 0.5-1.2 Sodium 140 mEq/L 135-145 Potassium 5.5 mEq/L High 3.5-5.0 Chloride 101 mEq/L 95-107 Co-2 27 mEq/L 24-31 Calcium 10.2 mg/dL 8.5-10.6 GFR 65 ML/MIN/1.73 SQM >60 Laboratory test finding 03/08/2024 [facility] [address] [place] [address] [phone] Potassium 5.1 mEq/L High 3.5-5.0 Procedures Date Code Description Status 09/02/2024 76947 Venipuncture Routine Complet ed 08/22/2024 G9920 Scrning Perf And Negative Co mpleted 08/22/2024 G0008 Influenza Admin Completed 06/17/2024 J1885 Injection Ketoro lac Tromethamine Per 15 mg/.5cc (Toradol) Completed 05/23/2024 J1885 Injection Ketoro lac Tromethamine Per 15 mg/.5cc (Toradol) Completed 04/22/2024 92020 Venipuncture Routine Complet ed 04/17/2024 30643261 Mammogram Completed 03/29/2024 67242 Venipuncture Routine Complet ed 03/26/2024 97149 Venipuncture Routine Complet ed 03/08/2024 29817 Venipuncture Routine Complet ed 01/28/2021 07323394 Colonoscopy Completed 08/22/2019 [id number] Bone Mineral Density Test Co mpleted Medical [...] lumbar region Assessments Date Code Description Provider 09/02/2024 Z00.01 Encounter for ge neral adult medical examination with abnormal findings Lab - [place] [facility] 09/02/2024 E78.2 [facility] 09/02/2024 Z85.3 Personal history of malignant neoplasm of breast Lab - [facility] 09/02/2024 N95.1 Menopausal and female climac teric states Lab - [facility] 09/02/2024 R79.89 Other specified abnormal findings of blood chemistry Lab - [facility] 08/22/2024 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 [...] MD, PhD 04/22/2024 E87.5 [facility] E87.5 Hyperkalemia Joshua Varma, DO 03/29/2024 E87.5 [facility] 03/26/2024 E87.5 Hyperkalemia Joshua Varma, DO 03/26/2024 E87.5 [facility] 03/08/2024 R79.89 Other specified abnormal findings of blood chemistry Joshua Varma, DO 03/08/2024 R79.89 Other specified abnormal findings of blood chemistry Lab - [facility] Plan of Treatment Future Appointment(s):* 09/27/2024 9:00 am - Rikva Avina PA-C at [facility] 08/22/2024 - Rivka Avina PA-C* E04.1 Nontoxic [...] Status Appt Papito Wood M.D. Closed 07/19 [facility] [address] [address] [phone]"
--- OUTSIDE RECORDS SUMMARY | 2024-09-11 11:23 | External Medical Summary | Continuity of Care Document ---
Author Name Unknown Organization [facility] Address [address] [place] [address] Phone [phone] Care Team Providers Care Manager Bakery Name Role Phone Papito Glover M.D. Care Team Information Rece iver [phone] Problems Active Problems Provider Date Right side [...] Order ing Provider Date Aspirin 81 Low Xllu83qh Chewtabs 1 by mouth every day 90units Joshua Varma, DO 08/22/2024 Vitamin D3 Maximum Ljtxrheg082fne (5000 Ut) Capsules 1 by mouth every day 90caps Joshua Varma DO 08/22/2024 Qzqrdhwb75vs Tablets 1 by mouth tab every 8 hours as needed pain/muscle spasm 90tabs David Amezcua JR, DO 06/17/2024 Fluocinolone Acetonide0.01% Oil 5 gtt in affected ears bid x 7 days prn 20ml Joshua Varma, 03/14/2024 Vrdtcyjr97tzd/0.5ML Suspension Rec 0.5 milliliters intramuscular x 1 1units Joshua Varma, 03/01/2024 Xgwsmndy07-099-79fh Capsules 1 po q 4 hours prn. Do not exceed 6/day 14caps G44.209 Joshua Varma, DO 03/01/2024 Multivitamin AdultTablets 1 by mouth every day Unknown Ltycw50nb Tablets 1 by mouth every day N95.1 Unknown Calcium 463973po Tablets 1 by mouth once a day Unknown Stool SoftenerCapsules 1 by mouth every day Unknown History Medications Gdykxglgld327bi Tablets take 1 tablet by mouth every 6-8 hours as needed for pain/muscle spasms 90tabs M51.16 David Amezcua JR, DO 06/17/2024 - 06/17/2024 Khucljwcsc521tz Capsules 1 by mouth every night at bedtime day 1, 1 by mouth twice a day day 2, then 1 by mouth three times a day 90caps M51.16 Joshua Varma, 05/23/2024 - 08/22/2024 Sygdrlynnt93vv Tablets 4 tabs by mouth days 1-2, [...] PA-C 02/09/2024 Injection Kenalog 10 MG ND 55952217648Zuvslmxpz Joshua Varma, 1 12/03/2022 Injection Ketorolac Trometha mine Per 15 mg/.5cc (Toradol)Injection Raven perez MD 07/03/2023 Injection Methylprednisolone Acetate 20 MGInjection Raven Lord MD Injection Kenalog 10 MG NDC 90656426060Fowpryuwe Joshua Varma, DO 0 05/31/2021 Injection Methylprednisolone Acetate 20 MGInjection Joshua Varma, DO 03/10/2021 Injection Kenalog 10 MG NDC 30007309823Msenlfsnr Joshua Varma, DO 0 12/04/2020 Injection Ketorolac Trometha mine Per 15 mg/.5cc (Toradol)Injection Rivka Avina PA-C 08/28/2020 Injection Methylprednisolone Acetate 20 MGInjection Joshua Varma, DO 08/25/2020 Injection Ketorolac Trometha mine Per 15 mg/.5cc (Toradol)Injection Rivka Avina PA-C 04/22/2019 Injection Methylprednisolone Acetate 20 MGInjection Rivka Avina PA-C 04/22/2019 Immunizations CPT Code Status Date Vaccine Lot # [id number] Given 08/22/2024 Influenza Vac, Split, Preservative Free High Dose Age 65 & > [id number] Given 10/11/2023 Influenza Vaccine High Do se 0.5ML Age 65 & > [id number] 31611 Given 10/21/2021 Influenza Vaccine High Do se 0.5ML Age 65 & > [id number] 02643 Given 01/28/2021 Influenza Virus Vaccine, [place], [place] Use 62400 Given 09/30/2019 Influenza Vacci ne, Inactivated, Subunit, Adjuvanted, For Intrmusc 545208 37319 Given 02/25/2019 Pneumococcal Vaccine/Pneu movax 23 [id number] 84533 Given 09/21/2017 Zostavax Vaccine 66676 Given 09/14/2017 Pneumococcal Conjugate-Pr evnar 13 [id number] 56301 Given 09/14/2017 Influenza Vac, Split, Preservative Free High Dose Age 65 & > [id number] 61431 Given 07/07/2016 Tdap (Tetanus, diphtheria & acel. pertussis) Adacel or Boostrix [id number] 63556 Refused 08/22/2024 Shingrix 92798 Refused 06/17/2024 Moderna Sars-Co v-2 (Cov-19) vacc,100 mcg/ 0.5 mL 12Y+EMR Doc Only 65816 Refused 02/22/2023 Moderna Sars-Co v-2 (Cov-19) vacc,100 mcg/ 0.5 mL 12Y+EMR Doc Only 02304 Refused 02/15/2021 Moderna Sars-Co v-2 (Cov-19) vacc,100 mcg/ 0.5 mL 12Y+EMR Doc Only 47968 Refused 12/04/2020 Shingrix 88417 Refused 07/03/2017 Influenza Virus Vaccine, Quadrivalent, Im Use 77843 Refused 03/02/2017 Zostavax Vaccine 93018 Refused 03/02/2017 Pneumococcal Vaccine/Pneu movax 23 [id number] Refused 03/02/2017 Influenza Virus Vaccine, Quadrivalent, Im Use 90761 Refused 03/02/2017 Pneumococcal Conjugate-Pr evnar 13 Vital [...] Facility Test Result H/L Range N ote Comp. Met 09/02/2024 [facility]. [address] [place] [address] Glucose 97 mg/dL 70-110 BUN 21 mg/dL [...] GFR 104 ML/MIN/1.7 3SQM >60 Lipid 09/02/2024 [facility] [address] [place] [address] [phone] Cholesterol 212 mg/dL High 0-200 1 Triglyceride 98 mg/dL 0-150 2 HDLD 75 mg/dL See Comment 3 Measured LDL 124 mg/dL 0-130 4 Calc VLDL 19.6 mg/dL See Comment 5 Chol/HDL 2.8 RATIO See Comment 6 Non-HDL 137 mg/dL See Comment 7 CBC W/Diff 09/02/2024 [facility] [address] [place] [address] [phone] WBC 7.2 10^3/M3 3.1-9.2 RBC 4.81 10^6/M3 3.70-5.50 HGB 14.7 GR/DL 11.5-16.1 HCT 43.8 % 34.5-47.8 MCV 90.9 CUMICR 82.6-95.8 MCH 30.5 PICOGR 27.9-32.9 MCHC 33.5 % 32.6-35.4 RDW 13.3 % 11.4-14.6 PLT 265 10^3/M3 140-350 MPV 7.5 CUMICR 7.0-10.6 %Neut 53.4 % 40.0-75.0 %Lymph 34.4 % 17.0-45.0 %Erath 6.2 % 1.0-11.0 %Eos 4.9 % 0.0-6.0 %Baso 1.1 % 0.0-2.0 #Neut 3.8 10^3/M3 1.5-8.0 #Lymph 2.5 10^3/M3 0.8-3.2 #Erath 0.4 10^3/M3 0.0-0.8 #Eos 0.4 10^3/m3 0.0-0.4 #Baso 0.1 10^3/m3 0.0-0.2 Laboratory test finding 09/02/2024 [facility]. [address] [place] [address] FRT4 0.87 ng/dL 0.75-1.54 TSH 1.30 uIU/mL 0.50-6.00 Iron Panel(Medcom) 09/02/2024 [facility] [address] [place] [address] Iron 92 g /dL 25-140 % Saturation 33 % 30-35 Tibc 09/02/2024 [facility]. [address] [place] [address] Tibc 277 g /dL 260-400 Transferrin 198 mg/dL Low 200-400 Laboratory test finding 04/22/2024 [facility] [address] [place] [address] [phone] Potassium 4.8 mEq/L 3.5-5.0 Laboratory test finding 03/29/2024 [facility] [address] [place] [address] [phone] Potassium 5.2 mEq/L High 3.5-5.0 BMP 03/26/2024 [facility] [address] [place] [address] [phone] Glucose 88 mg/dL 70-110 BUN 28 mg/dL High 6-25 Creatinine 0.9 mg/dL 0.5-1.2 Sodium 140 mEq/L 135-145 Potassium 5.5 mEq/L High 3.5-5.0 Chloride 101 mEq/L 95-107 Co-2 27 mEq/L 24-31 Calcium 10.2 mg/dL 8.5-10.6 GFR 65 ML/MIN/1.7 3SQM >60 Laboratory test finding 03/08/2024 [facility] [address] [place] [address] Potassium 5.1 mEq/L High 3.5-5.0 1 CHOLESTEROL Less than 200mg/dl Low risk [...] LDL Target Procedures Date Code Description Status 09/02/2024 17053 Venipuncture Routine Complet ed 08/22/2024 G9920 Scrning Perf And Negative Co mpleted 08/22/2024 G0008 Influenza Admin Completed 06/17/2024 J1885 Injection Ketoro lac Tromethamine Per 15 mg/.5cc (Toradol) Completed 05/23/2024 J1885 Injection Ketoro lac Tromethamine Per 15 mg/.5cc (Toradol) Completed 04/22/2024 97080 Venipuncture Routine Complet ed 04/17/2024 [id number] Mammogram Completed 03/29/2024 37237 Venipuncture Routine Complet ed 03/26/2024 24043 Venipuncture Routine Complet ed 03/08/2024 55127 Venipuncture Routine Complet ed 01/28/2021 36772424 Colonoscopy Completed 08/22/2019 621352779 Bone Mineral Density Test Co mpleted Medical [...] medical examination with abnormal findings Lab - [place] 09/02/2024 E78.2 Mixed hyperlipidemia Lab - [facility] [place] 09/02/2024 Z85.3 Personal history of malignant neoplasm of breast Lab - [place] 09/02/2024 N95.1 Menopausal and female climac teric states Lab - [place] 09/02/2024 R79.89 Other specified abnormal findings of blood chemistry Lab - [place] 08/22/2024 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 Rivka Avina PA-C 08/22/2024 M51.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 d isc disorders with radiculopathy, lumbar region Rivka Avina PA-C 08/22/2024 Z01.818 Encounter for ot her preprocedural examination Rivka Avina PA-C 08/22/2024 Z23 Encounter for immunization H lola Avina PA-C 06/17/2024 M51.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 d isc disorders with radiculopathy, lumbar region [place] MARY Cuenca 05/23/2024 M51.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 d isc disorders with radiculopathy, lumbar region Rivka Avina PA-C 04/22/2024 E87.5 Hyperkalemia Naila Mims MD, PhD 04/22/2024 E87.5 Hyperkalemia Lab - [facility] 03/29/2024 E87.5 Hyperkalemia Joshua Varma, DO 03/29/2024 E87.5 Hyperkalemia Lab - [facility] 03/26/2024 E87.5 Hyperkalemia Joshua Varma, DO 03/26/2024 E87.5 Hyperkalemia Lab - [facility] 03/08/2024 R79.89 Other specified abnormal findings of blood chemistry Joshua Varma, DO 03/08/2024 R79.89 Other specified abnormal findings of blood chemistry Lab - [place] Plan of Treatment Future Appointment(s):* 09/27/2024 9:00 am - Rivka Avina PA-C at [place] 08/22/2024 - Rivka Avina PA-C* E04.1 Nontoxic [...] Papito Wood M.D. Closed 07/19 [facility] [address] [id number] [phone]"
--- OUTSIDE RECORDS SUMMARY | 2024-09-11 11:23 | External Medical Summary ---
Author Name Unknown Address Unknown Organization [facility] [address] [place] [address] Laboratory Report Ordering Provider Test Date Status BRENDA EVANS 09/02/2024 07:22 Final Observation Date Value Abnormality Reference (Units ) Status % SATURATION 09/02/2024 15:06 33 30-35 (%) Final Performing Location [facility] [address] [place] [address]
--- OUTSIDE RECORDS SUMMARY | 2024-09-11 11:23 | External Medical Summary | Summary of Care ---
Author Name Unknown Organization [facility] Address [address] [place] [address] Phone [phone] Care Team Providers Care Core Inspector Name Role Phone Rivka Avina PA-C Primary Care Provider [phone] Encounter Details Date Type Department Care Team (Late st Contact Info) Description 09/02/2024 Orders Only Unspecified Department Rivka Avina PA-C [address] [place] [address] Allergies Active Allergy Reactions Criticality Noted Date Comments Nitrofurantoin Rash Medium 11/10/2003 Macrobid documented as of this encounter (statuses as of 09/02/2024) Medications Medication Sig Dispensed Refills Start Date End Date Status CALCIUM + D 600-200 MG-IU OR TABS one pill each day 0 0 11/10/2003 Active MULTIVITAMIN TABS OR one pill each day 0 0 11/10/2003 Active PAXIL 20 MG PO TABS 1 tab daily Acti ve STOOL SOFTENER 100 MG PO CAPS as needed Active Acetaminophen 325 MG Oral Tablet (Tylenol) Take 3 Tablets by mouth every 6 hours as needed for Pain, Moderate, Pain, Mild or Fever >38C(100.5F). 30 Tablet 11/01/2023 Active Fioricet 50-300-40 MG Oral Capsule Take by mouth. 03/01/2024 Active Baclofen 5 MG Oral Tablet (Lioresal) Take 1 Tablet by mouth in the morning and 1 Tablet at noon and 1 Tablet before bedtime. Active predniSONE 10 MG Oral Tablet (Deltasone) Take 1 Tablet by mouth in the morning. Active Gabapentin 300 MG Oral Capsule (Neurontin) Take 1 Capsule by mouth in the morning and 1 Capsule at noon and 1 Capsule before bedtime. Active documented as of this encounter (statuses as of 09/02/2024) Active Problems Problem Noted Date Diagnosed Date Spinal stenosis of cervical region 11/01/2023 Intractable pain 10/31/2023 Radiculitis 10/30/2023 Neck pain 10/29/2023 Anisocoria 10/29/2023 Kidney stone on left side 01/26/2015 Palpitations 09/12/2012 Family history of malignant neoplasm of gastrointestinal tract Overview: mother Major depressive disorder Overview: ICD-10 update of inactive term documented as of this encounter (statuses as of 09/02/2024) Resolved Problems Problem Noted Date Diagnosed Date Resolved Date Breast cancer in female 05/28/202105/07 Overview: 2010 - lumpectomy, chemo, and radiation documented as of this encounter (statuses as of 09/02/2024) Immunizations Name Administration Dates Next Due Season Influenza, Quad, PF, Adjuvanted, 65+ Yrs, IM (FLUAD) 01/28/2021 TDAP, Age 7 and older, IM (Adacel) 11/14/2012 Tetanus Toxid Adsorbed 04/14/2005 documented as of this encounter Social History Tobacco Use Types Packs/Day Years Used Date Smoking Tobacco: Former Cigarettes Smokeless Tobacco: Never Alcohol Use Standard Drinks/Week Comments Yes 0 (1 standard drink = 0.6 oz pur e alcohol) Occasionally Utilities Answer Date Recorded Do you have trouble paying y our heating, water, or electric bill? (Adult - for ages 18 years and over) Not on file 04/23/2024 Is your family able to pay t he heat, water, or electric bill? (Household - for ages 0-17 years) Not on file 04/23/2024 Does your family have access to good internet? (Household - for ages 0-17 years) Not on file 04/23/2024 Social Connections Answer Date Recorded How often do you feel lonely or isolated from those around you? (Adult - for ages 18 years and over) Not on file 04/23/2024 Sex and Gender Information Value Date Recorded Sex Assigned at Not on file Gender Identity Not on file Sexual Orientation Not on file Job Start Date Occupation Industry Not on file Not on file Not on file documented as of this encounter Functional Status Functional Status Response Date of Assess ment Are you deaf or do you have serious difficulty h earing? No 10/29/2023 Are you blind or do you have serious difficulty seeing, even when wearing glasses? No 10/29/2023 Do you have serious difficul ty walking or climbing stairs? (5 years old or older) No 10/29/2023 Do you have difficulty dress ing or bathing? (5 years old or older) No 10/29/2023 Because of a physical, menta l, or emotional condition, do you have difficulty doing errands alone such as visiting a doctor s office or shopping? (15 years old or older) No 10/29/20 Cognitive Status Response Date of Assessm ent Because of a physical, menta l, or emotional condition, do you have serious difficulty concentrating, remembering, or making decisions? (5 years old or older) No 10/29/2023 documented as of this encounter Plan of Treatment Scheduled Procedures Name Priority Associated Diagnoses Date/Ti me COLONOSCOPY FLEXIBLE PROXIMA L DIAGNOSTIC Recall History of colonic polyps Health Maintenance Due Date Last Done Comments Hepatitis C Screening 01/23/1970 Cologuard 01/23/1997 Fecal Occult Blood Test 01/23/1997 Sigmoidoscopy 01/23/1997 Depression Monitoring 06/30/2016 06/30/2015 Zoster Vaccines (2 of 3) 11/16/2017 09/21/2017 DTap/Tdap Vaccines (2 - Td or Tdap) 11/14/2022 11/14/2012 COVID-19 Vaccine (1 - season) 2024 Influenza Vaccine (FLU shot) (#1) 2024 10/11/2023, 10/21/2021, 01/28/2021, Additional history exists Mammogram 04/18/2025 04/18/2024, 10/06, 04/05/2023, Additional history exists Colonoscopy 01/28/2026 01/28/2021, 01/05, 10/20/2017, Additional history exists Colorectal Cancer Screening 01/28/2026 DXA Scan 08/22/2026 08/22/2019 Lipid Panel 03/01/2029 09/02/2024, 02/05, 05/17/2022, Additional history exists Pneumococcal Vaccine: 65+ Years Completed 02/25/2019, 09/14/2017 RETIRED - COLONOSCOPY-EVERY 5 YRS AGES 18-100 Discontinued 01/28/2021, 01/28/2021, 10/20/2017, Additional history exists HPV (Gardasil) Vaccine Aged Out No lo nger eligible based on patient's age to complete this topic Hepatitis B Vaccine Aged Out No longe r eligible based on patient's age to complete this topic MENINGOCOCCAL (MENACTRA/MENVEO) Aged Out No longer eligible based on patient's age to complete this topic documented as of this encounter Medical Devices Not on filedocumented as of this encounter Procedures Procedure Name Priority Date/Time Associated Diagnosis Comments FRT4 - OUTSIDE LAB Routine 09/02/2024 7: 22 AM EDT % SATURATION - OUTSIDE LAB Routine 09/02/2024 7:22 AM EDT TIBC - OUTSIDE LAB Routine 09/02/2024 7: 22 AM EDT COMPREHENSIVE METABOLIC PANEL Routine 09/02/2024 7:22 AM EDT CBC Routine 09/02/2024 7:22 AM EDT TSH Routine 09/02/2024 7:22 AM EDT IRON Routine 09/02/2024 7:22 AM EDT LIPID PANEL WITHOUT DIRECT LDL Routine 09/02/2024 7:22 AM EDT documented in this encounter Results * CBC WITH WBC DIFFERENTIAL (09/02/2024 7:22 AM EDT) WBC 7.2 3.1 - 9.2 10^3/M3 [facility] Comment:Document delivery by [facility] on behalf of [facility] RBC 4.81 3.70 - 5.50 10^6/M3 [facility] Comment:Document delivery by [facility] on behalf of [facility] HGB 14.7 11.5 - 16.1 GR/DL [facility] Comment:Document delivery by [facility] on behalf of [facility] HGB 43.8 34.5 - 47.8 % [facility] Comment:Document delivery by [facility] on behalf of [facility] MCV 90.9 82.6 - 95.8 CU MICR [facility] Comment:Document delivery by [employer] on behalf of [facility] MCH 30.5 27.9 - 32.9 STU GR [facility] Comment:Document delivery by [employer] on behalf of [facility] [place] MCHC 33.5 32.6 - 35.4 % [facility] Comment:Document delivery by [employer] on behalf of [facility] RDW 13.3 11.4 - 14.6 % [facility] Comment:Document delivery by [employer] on behalf of [facility] [place] PLT 265 140 - 350 10^3/M3 [facility] Comment:Document delivery by [employer] on behalf of [facility] MPV 7.5 7.0 - 10.6 CU MICR [facility] Comment:Document delivery by [employer] on behalf of [facility] %NEUT - OUTSIDE LAB 53.4 40.0 - 75.0 % [facility] Comment:Document delivery by [employer] on behalf of [facility] %LYMPH - OUTSIDE LAB 34.4 17.0 - 45.0 % [facility] Comment:Document delivery by [employer] on behalf of [facility] %MONO - OUTSIDE LAB 6.2 1.0 - 11.0 % [facility] Comment:Document delivery by [employer] on behalf of [facility] [place] EO%-OUTSIDE LAB 4.9 0.0 - 6.0 % [facility] Comment:Document delivery by [employer] on behalf of [facility] BASOPHILS - OUTSIDE LAB 1.1 0.0 - 2.0 % [facility] Comment:Document delivery by [employer] on behalf of [facility] #NEUT - OUTSIDE LAB 3.8 1.5 - 8.0 10^3/M3 [facility] Comment:Document delivery by Syed on behalf of [facility] %LYMPH - OUTSIDE LAB 2.5 0.8 - 3.2 10^3/M3 [facility] Comment:Document delivery by Syed on behalf of [facility] %MONO - OUTSIDE LAB 0.4 0.0 - 0.8 10^3/M3 [facility] Comment:Document delivery by Syed on behalf of [facility] EO#-OUTSIDE LAB 0.4 0.0 - 0.4 10^3/m3 [facility] Comment:Document delivery by Syed on behalf of [facility] Basophils Absolute-Outsi de Lab 0.1 0.0 - 0.2 10^3/m3 [facility] Comment:Document delivery by Sy[employer] on behalf of [facility] 09/02/2024 7:22 AM EDT Rivka BHANDARIC LAB BLOOD ORDERABLES Performing Organization Address City/[facility]/ZIP Co de Phone Number [facility] [address] [place] [phone] * (ABNORMAL) TIBC - OUTSIDE LAB (09/02/2024 7:22 AM EDT) TIBC - OUTSIDE LAB 277 260 - 400 ug/dL [facility] Comment:Document delivery by Syed on behalf of [facility] TRANSFERRIN - OUTSIDE LAB 198(L) 200 - 400 mg/dL [facility] Comment:Document delivery by Sy[employer] on behalf of [facility] 09/02/2024 7:22 AM EDT Rivka LUO-C LABORATORY [facility] [address] [place] [phone] * TSH (09/02/2024 7:22 AM EDT) TSH REFLEX - OUTSIDE LAB 1.30 0.50 - 6.00 uIU/mL [facility] Comment:Document delivery by Syed on behalf of [facility] 09/02/2024 7:22 AM EDT Rivka Herminia Fabrice PA-C LAB BLOOD ORDERABLES Performing Organization Address City/[facility]/ZIP Co de Phone Number [facility] [address] [place] [phone] * % SATURATION - OUTSIDE LAB (09/02/2024 7:22 AM EDT) %SAT-OUTSIDE LAB 33 30 - 35 % [facility] Comment:Document delivery by Syed on behalf of [facility] 09/02/2024 7:22 AM EDT Rivka Hope Fabrice PA-C LABORATORY Performing Organization Address [facility] Co de Phone Number [facility] [address] [place] [phone] * (ABNORMAL) COMPREHENSIVE METABOLIC PANEL (09/02/2024 7:22 AM EDT) GLUCOSE 97 70 - 110 MG/DL [facility] Comment:Document delivery by Syed on behalf of [facility] BUN 21 6 - 25 MG/DL [facility] Comment:Document delivery by Syed on behalf of [facility] CREATININE 0.6 0.5 - 1.2 MG/DL [facility] Comment:Document delivery by Sy[employer] on behalf of [facility] SODIUM 143 135 - 145 MEQ/L [facility] Comment:Document delivery by Sy[employer] on behalf of [facility] POTASSIUM 5.5(H) 3.5 - 5.0 MEQ/L [facility] Comment:Document delivery by Syed on behalf of [facility] CHLORIDE 106 95 - 107 MEQ/L [facility] Comment:Document delivery by Syed on behalf of [facility] CO2 28 24 - 31 MEQ/L [facility] Comment:Document delivery by Syed on behalf of [facility] ALKALINE PHOSPHATASE-OUT SIDE LAB 87 43 - 122 IU/L [facility] Comment:Document delivery by Syed on behalf of [facility] ALT-OUTSIDE LAB 12 10 - 40 IU/L [facility] Comment:Document delivery by Syed on behalf of [facility] AST-OUTSIDE LAB 17 3 - 42 IU/L [facility] Comment:Document delivery by Syed on behalf of [facility] TOTAL BILIRUBIN - OUTSIDE LAB 0.3 0.1 - 1.3 MG/DL [facility] Comment:Document delivery by Sy[employer] on behalf of [facility] CALCIUM 9.3 8.5 - 10.6 MG/DL [facility] Comment:Document delivery by Syed on behalf of [facility] TOTAL PROTEIN - OUTSIDE LAB 6.3 5.8 - 8.0 G/DL [facility] Comment:Document delivery by Syed on behalf of [facility] ALBUMIN - OUTSIDE LAB 4.1 3.0 - 5.2 G/DL [facility] Comment:Document delivery by Syed on behalf of [facility] GLOBULIN-OUTSID E LAB 2.2 2.0 - 3.4 G/DL [facility] Comment:Document delivery by Syed on behalf of [facility] EGFR 104 >60 ML/MIN/1.7 3 SQM [facility] Comment:Document delivery by [employer] on behalf of [facility] 09/02/2024 7:22 AM EDT Rivka Avina PA-C LAB BLOOD ORDERABLES [facility] [address] [place] [address] * (ABNORMAL) LIPID PANEL WITHOUT DIRECT LDL (09/02/2024 7:22 AM EDT) CHOLESTEROL-Out side Lab 212(H) 0 - 200 MG/DL [facility] Comment: Document delivery by Sy[employer] on behalf of [facility] CHOLESTEROL Less than 200mg/dl Low risk 201-239 mg/dl Borderline risk Equal to or greater 240mg/dl High risk TRIGLYCERIDES-O UTSIDE LAB 98 0 - 150 MG/DL [facility] Comment: Document delivery by Syed on behalf of [facility] TRIGLYCERIDES Less than 150mg/dl Normal 150-199mg/dl Borderline 200-499mg/dl High Greater than 500mg/dl Very High HDLD - OUTSIDE LAB 75 SEE COMMENT MG/DL [facility] Comment: Document delivery by Syed on behalf of [facility] HDL <40mg/dl Elevated Risk 41-59mg/dl Risk >=60mg/dl Least Risk LDL (DIRECT MEASURE)-OUTSID E LAB 124 0 - 130 MG/DL [facility] Comment: Document delivery by Syed on behalf of [facility] LDL <100mg/dl Optimal 100-129mg/dl Near Optimal 130-159mg/dl Borderline High 160-189mg/dl High >=190 Very High CALCULATED VLDL - OUTSIDE LAB 19.6 SEE COMMENT MG/DL [facility] Comment: Document delivery by Sy[employer] on behalf of [facility] VLDL Less than 30mg/dl Normal HDLD - OUTSIDE LAB 2.8 SEE COMMENT RATIO [facility] Comment: Document delivery by Sy[employer] on behalf of [facility] CHOL/HDL <4.0 Optimal 4.0-5.0 Borderline >6.0 High Risk NON-HDL - OUTSIDE LAB 137 SEE COMMENT MG/DL [facility] Comment: Document delivery by Sy[employer] on behalf of [facility] NON-HDL 30mg/dl higher than LDL Target 09/02/2024 7:22 AM EDT Rivka LUO-C LAB BLOOD ORDERABLES Performing Organization Address City/[facility]/ZIP Co de Phone Number [facility] [address] [facility] [address] [place] [phone] * FRT4 - OUTSIDE LAB (09/02/2024 7:22 AM EDT) FRT4 - OUTSIDE LAB 0.87 0.75 - 1.54 ng/dL [facility] Comment:Document delivery by Syed on behalf of [facility] 09/02/2024 7:22 AM EDT Rivka LUO-C LABORATORY Performing Organization Address [facility] Co de Phone Number [facility] [address] [facility] [address] [place] [phone] * IRON (09/02/2024 7:22 AM EDT) IRON - OUTSIDE LAB 92 25 - 140 ug/dL [facility] Comment:Document delivery by Syed on behalf of [facility] 09/02/2024 7:22 AM EDT Rivka Avina PA-C LAB BLOOD ORDERABLES [facility] 1 [facility] [address] [place] [phone] documented in this encounter Advance Directives * No Code (Latest Code Status on File) Date Activated Date Inactivated Comments 10/29/2023 12:22 PM 11/01/2023 5:03 PM This orde r reflects the patients wishes and were consensually agreed upon. Question Answer Comments Discussion of Advance Directives occurred with: Patient Care Teams Core Inspector Relationship Specialty Start Date End Date [facility] [facility] [address] [facility] - General Physician Steamfitter 03/21/24 documented as of this encounter
--- OUTSIDE RECORDS SUMMARY | 2024-09-11 11:23 | External Medical Summary ---
Author Name Unknown Address Unknown Organization [facility]:[address] [place] [address] Laboratory Report Ordering Provider Test Date Status BRENDA EVANS 09/02/2024 07:22 Final Observation Date Value Abnormality Reference (Units ) Status Glucose 09/02/2024 15:06 97 70-110 (MG/DL) Final BUN 09/02/2024 15:06 21 6-25 (MG/DL) Final Creatinine 09/02/2024 15:06 0.6 0.5-1.2 (MG/DL) Final Sodium 09/02/2024 15:06 143 135-145 (MEQ/L) Final Potassium 09/02/2024 15:06 5.5 Above high normal 3.5-5.0 (MEQ/L) Final Cl 09/02/2024 15:06 106 95-107 (MEQ/L) Final CO2 09/02/2024 15:06 28 24-31 (MEQ/L) Final Alk Phos 09/02/2024 15:06 87 43-122 (IU/L) Final ALT (Alanine aminotransferase) 09/02/2024 15:06 12 10-40 (IU/L) Final AST (Aspartate aminotransferase) 09/02/2024 15:06 17 3-42 (IU/L) Final Bilirubin, Total 09/02/2024 15:06 0.3 0.1-1.3 (MG/DL) Final Calcium 09/02/2024 15:06 9.3 8.5-10.6 (MG/DL) Final Protein 09/02/2024 15:06 6.3 5.8-8.0 (G/DL) Final Albumin 09/02/2024 15:06 4.1 3.0-5.2 (G/DL) Final GLOBULIN 09/02/2024 15:06 2.2 2.0-3.4 (G/DL) Final GFR (estimated) 09/02/2024 15:06 104 >60 (ML/MIN/1.73 SQM) Final Performing Location [facility] [address] [place] [address]
--- OUTSIDE RECORDS SUMMARY | 2024-09-11 11:23 | External Medical Summary ---
TSH Created on: [employer] External Reference #: [id number] : [id number] Sex: Female Author Name Unknown Address Unknown Organization [facility] [address] [place] [phone] Laboratory Report Ordering Provider Test Date Status BRENDA EVANS 09/02/2024 07:22 Final Observation Date Value Abnormality Reference (Units ) Status TSH 09/02/2024 15:05 1.30 0.50-6.00 (uI U/mL) Final Performing Location [facility] [address] [place] [address]
--- OUTSIDE RECORDS SUMMARY | 2024-09-11 11:23 | External Medical Summary | Continuity of Care Document ---
Author Name Unknown Organization [place] Address [address], [place] [address] Phone [phone] Care Team Providers Care Director Of Dementia Operations Name Role Phone Papito Glover M.D. Care Team Information Rece iver [phone] Problems Active Problems Provider Date Right side [...] Order ing Provider Date Aspirin 81 Low Ktzf80dw Chewtabs 1 by mouth every day 90units Joshua Varma, DO 08/22/2024 Vitamin D3 Maximum Iwubonaq097sps (5000 Ut) Capsules 1 by mouth every day 90caps Joshua Varma, DO 08/22/2024 Ovkfdxcx81nh Tablets 1 by mouth tab every 8 hours as needed pain/muscle spasm 90tabs David Amezcua JR, DO 06/17/2024 Fluocinolone Acetonide0.01% Oil 5 gtt in affected ears bid x 7 days prn 20ml Joshua Varma, 03/14/2024 Nzhsgwri46rez/0.5ML Suspension Rec 0.5 milliliters intramuscular x 1 1units Joshua Varma, DO 03/01/2024 Rrquwdxx57-073-75hr Capsules 1 po q 4 hours prn. Do not exceed 6/day 14caps G44.209 Joshua Varma, DO 03/01/2024 Multivitamin AdultTablets 1 by mouth every day Unknown Olgvy69ra Tablets 1 by mouth every day N95.1 Unknown Calcium 182253uj Tablets 1 by mouth once a day Unknown Stool SoftenerCapsules 1 by mouth every day Unknown History Medications Wuawxxxtzj779zb Tablets take 1 tablet by mouth every 6-8 hours as needed for pain/muscle spasms 90tabs M51.16 David Amezcua JR, DO 06/17/2024 - 06/17/2024 Anpvkrqhjs104ra Capsules 1 by mouth every night at bedtime day 1, 1 by mouth twice a day day 2, then 1 by mouth three times a day 90caps M51.16 Joshua Varma, DO 05/23/2024 - 08/22/2024 Juormbwgdz66rw Tablets 4 tabs by mouth days 1-2, [...] PA-C 02/09/2024 Injection Kenalog 10 MG NDC [id number] Joshua Varma, DO 1 12/03/2022 Injection Ketorolac Trometha mine Per 15 mg/.5cc (Toradol)Injection Raven perez MD 07/03/2023 Injection Methylprednisolone Acetate 20 MGInjection Raven Lord MD Injection Kenalog 10 MG NDC [id number] Joshua Varma, DO 0 05/31/2021 Injection Methylprednisolone Acetate 20 MGInjection Joshua Varma, DO 03/10/2021 Injection Kenalog 10 MG NDC [id number] Joshua Varma, DO 0 12/04/2020 Injection Ketorolac Trometha mine Per 15 mg/.5cc (Toradol)Injection Rivka Avina PA-C 08/28/2020 Injection Methylprednisolone Acetate 20 MGInjection Joshua Varma, DO 08/25/2020 Injection Ketorolac Trometha mine Per 15 mg/.5cc (Toradol)Injection Rivka Avina PA-C 04/22/2019 Injection Methylprednisolone Acetate 20 MGInjection Rivka Avina PA-C 04/22/2019 Immunizations CPT Code Status Date Vaccine Lot # [id number] Given 08/22/2024 Influenza Vac, Split, Preservative Free High Dose Age 65 & > [id number] Given 10/11/2023 Influenza Vaccine High Do se 0.5ML Age 65 & > [id number] 57062 Given 10/21/2021 Influenza Vaccine High Do se 0.5ML Age 65 & > [id number] 98506 Given 01/28/2021 Influenza Virus Vaccine, Quad[place] Use 48898 Given 09/30/2019 Influenza Vacci ne, Inactivated, Subunit, Adjuvanted, For [facility] [id number] 70192 Given 02/25/2019 Pneumococcal Vaccine/Pneu movax 23 [id number] 07676 Given 09/21/2017 Zostavax Vaccine 76794 Given 09/14/2017 Pneumococcal Conjugate-Pr evnar 13 [id number] 44655 Given 09/14/2017 Influenza Vac, Split, Preservative Free High Dose Age 65 & > [id number] Given 07/07/2016 Tdap (Tetanus, diphtheria & acel. pertussis) Adacel or Boostrix [id number] Refused 08/22/2024 Shingrix [id number] Refused 06/17/2024 Moderna Sars-Co v-2 (Cov-19) vacc,100 mcg/ 0.5 mL 12Y+EMR Doc Only [id number] Refused 02/22/2023 Moderna Sars-Co v-2 (Cov-19) vacc,100 mcg/ 0.5 mL 12Y+EMR Doc Only 46474 Refused 02/15/2021 Moderna Sars-Co v-2 (Cov-19) vacc,100 mcg/ 0.5 mL 12Y+EMR Doc Only 94101 Refused 12/04/2020 Shingrix 51117 Refused 07/03/2017 Influenza Virus Vaccine, Quadrivalent, Im Use 64644 Refused 03/02/2017 Zostavax Vaccine 26647 Refused 03/02/2017 Pneumococcal Vaccine/Pneu movax 23 [id number] Refused 03/02/2017 Influenza Virus Vaccine, Quadrivalent, Im Use 92690 Refused 03/02/2017 Pneumococcal Conjugate-Pr evnar 13 Vital [...] Range N ote Laboratory test finding 04/22/2024 [facility] [address] [place] [address] Potassium 4.8 mEq/L 3.5-5.0 Laboratory test finding 03/29/2024 [facility] [address] [place] [address] [phone] Potassium 5.2 mEq/L High 3.5-5.0 BMP 03/26/2024 [facility] [address] [place] [address] Glucose 88 mg/dL 70-110 BUN 28 mg/dL High 6-25 Creatinine 0.9 mg/dL 0.5-1.2 Sodium 140 mEq/L 135-145 Potassium 5.5 mEq/L High 3.5-5.0 Chloride 101 mEq/L 95-107 Co-2 27 mEq/L 24-31 Calcium 10.2 mg/dL 8.5-10.6 GFR 65 ML/MIN/1.7 3SQM >60 Laboratory test finding 03/08/2024 [facility] [address] [place] [address] Potassium 5.1 mEq/L High 3.5-5.0 Comp. Met 03/01/2024 [facility] [address] [place] [address] [phone] Glucose 93 mg/dL 70-110 BUN 17 mg/dL [...] GFR 87 ML/MIN/1.7 3SQM >60 Lipid 03/01/2024 [facility] [address] [place] [address] Cholesterol 225 mg/dL High 0-200 1 Triglyceride 70 mg/dL 0-150 2 HDLD 95 mg/dL See Comment 3 Measured LDL 119 mg/dL 0-130 4 Calc VLDL 14.0 mg/dL See Comment 5 Chol/HDL 2.4 RATIO See Comment 6 Non-HDL 130 mg/dL See Comment 7 CBC W/Diff 03/01/2024 [facility] [address] [place], [place] [id number] [phone] WBC 7.9 10^3/M3 3.1-9.2 RBC 4.94 10^6/M3 3.70-5.50 HGB 15.3 GR/DL 11.5-16.1 HCT 44.7 % 34.5-47.8 MCV 90.4 CUMICR 82.6-95.8 MCH 30.9 PICOGR 27.9-32.9 MCHC 34.2 % 32.6-35.4 RDW 13.7 % 11.4-14.6 PLT 253 10^3/M3 140-350 MPV 7.6 CUMICR 7.0-10.6 %Neut 64.1 % 40.0-75.0 %Lymph 26.0 % 17.0-45.0 %[place] 7.3 % 1.0-11.0 %Eos 2.0 % 0.0-6.0 %Baso 0.6 % 0.0-2.0 #Neut 5.1 10^3/M3 1.5-8.0 #Lymph 2.1 10^3/M3 0.8-3.2 #Brookings 0.6 10^3/M3 0.0-0.8 #Eos 0.2 10^3/m3 0.0-0.4 #Baso 0.0 10^3/m3 0.0-0.2 Laboratory test finding 03/01/2024 [facility] [address] [place] [address] [phone] FRT4 0.99 ng/dL 0.75-1.54 TSH 1.29 [...] Tromethamine Per 15 mg/.5cc (Toradol) Completed 04/22/2024 93483 Venipuncture Routine Complet ed 04/17/2024 [id number] Mammogram Completed 03/29/2024 57822 Venipuncture Routine Complet ed 03/26/2024 06127 Venipuncture Routine Complet ed 03/08/2024 38177 Venipuncture Routine Complet ed 03/01/2024 84951 Venipuncture Routine Complet ed 03/01/2024 1101F PT SCR Future Fall Risk, No Fall Or 1 W/Out Injury Completed 01/28/2021 [id number] Colonoscopy Completed 08/22/2019 [id number] Bone Mineral Density Test Co mpleted Medical [...] radiculopathy, lumbar region Office Visit 03/01/2024 9:00a Tanja Forbes PA-C Z00.01 Encounter for general adult [...] d isc disorders with radiculopathy, lumbar region Rivkaher Fabrice PA-C 08/22/2024 Z01.818 Encounter for ot [...] Varma, DO 03/29/2024 [facility] E87.5 Hyperkalemia Joshua Varma, DO 03/26/2024 E87.5 [facility] 03/08/2024 R79.89 Other specified abnormal findings of blood chemistry Joshua Varma, DO 03/08/2024 R79.89 Other specified abnormal findings of blood chemistry Lab - [place] 03/01/2024 Z00.01 Encounter for [facility] adult medical examination with abnormal findings Rivka [...] 9:00 am - Rivka Avina PA-C at [place] * 09/02/2024 7:30 am - Lab - [place] 08/22/2024 - Rivka Avina PA-C* E04.1 Nontoxic [...] Follow up:* I need recent cxr from [facility] Functional Status Description No Information Available Mental Status Description No Information Available Referrals Refer to Reason for Referral Status Appt Papito Wood M.D. Closed 07/19 [facility] [address] [place] [id number] [phone]"
--- OUTSIDE RECORDS SUMMARY | 2024-09-11 11:24 | External Medical Summary | Continuity of Care Document ---
Author Name Unknown Organization [place] Address [address], [place] [address] Phone [phone] Care Team Providers Care Unix Analyst Name Role Phone Papito Glover M.D. Care Team Information Rece iver [phone] Problems Active Problems Provider Date Right side sciatica Penny Ya DO Onset: 07/2023 Social History Type Date Description Comments Sex Unknown Tobacco Use Reviewed: 06/17/24 Never Smoked Cigarette s Tobacco Use Reviewed: 06/17/24 Never Smoked Cigars Tobacco Use Reviewed: 06/17/24 Never Smoked A Pipe Smoking Status Reviewed: 06/17/24 Never Smoked A Pipe Smokeless Tobacco 06/17/2024 Never Used Smokeless To bacco ETOH Use Denies alcohol use Recreational Drug Use Denies Drug Use Allergies and adverse reactions Active Allergies Criticality Reaction | Severity Comments Date Macrobid Unable to assess criticality 07/07/2016 Medications Active Medications SIG Qnty Indications Order ing Provider Date Mvnubzyi87xg Tablets 1 by mouth tab every 8 hours as needed pain/muscle spasm 90tabs David Amezcua JR, DO 06/17/2024 Jjdevwprsn985zv Capsules 1 by mouth every night at bedtime day 1, 1 by mouth twice a day day 2, then 1 by mouth three times a day 90caps M51.16 Joshua Varma, DO 05/23/2024 Fluocinolone Acetonide0.01% Oil 5 gtt in affected ears bid x 7 days prn 20ml Joshua Varma, DO 03/14/2024 Nabctlmt61ugi/0.5ML Suspension Rec 0.5 milliliters intramuscular x 1 1units Joshua Varma, 03/01/2024 Tszthzsd42-898-79gv Capsules 1 po q 4 hours prn. Do not exceed 6/day 14caps G44.209 Joshua Varma, 03/01/2024 Multivitamin AdultTablets 1 by mouth every day Unknown Dwual27rd Tablets 1 by mouth every day N95.1 Unknown Calcium 398582ct Tablets 1 by mouth once a day Unknown Stool SoftenerCapsules 1 by mouth every day Unknown History Medications Dgmceqilpq569eo Tablets take 1 tablet by mouth every 6-8 hours as needed for pain/muscle spasms 90tabs M51.16 David Amezcua JR, DO 06/17/2024 - 06/17/2024 Hwkxdltrqr00cd Tablets 4 tabs by mouth days 1-2, 3 tabs by mouth days 3-4, 2 tabs by mouth days 5-6, 1 tab by mouth day 7-8 20tabs M51.16 Joshua Varma, 05/23/2024 - 05/31/2024 Hydrocortisone-Acetic Acid1-2% Solution 3-5 drops both ears four times a day for 7-10 days prn 10ml L29.8 Joshua Varma DO 03/01/2024 - 03/14/2024 Medications Administered in [...] Avina PA-C 02/09/2024 [address] [facility] [id number] Joshua Varma, 1 12/03/2022 Injection Ketorolac Trometha mine Per 15 mg/.5cc (Toradol)Injection Raven perez MD 07/03/2023 Injection Methylprednisolone Acetate 20 MGInjection Raven Lord MD Injection Kenalog 10 MG ND [id number] Joshua Varma, DO 0 05/31/2021 Injection Methylprednisolone Acetate 20 MGInjection Joshua Varma, DO 03/10/2021 Injection Kenalog 10 MG ND [id number] Joshua Varma, DO 0 12/04/2020 Injection Ketorolac Trometha mine Per 15 mg/.5cc (Toradol)Injection Rivka Avina PA-C 08/28/2020 Injection Methylprednisolone Acetate 20 MGInjection Joshua Varma, DO 08/25/2020 Injection Ketorolac Trometha mine Per 15 mg/.5cc (Toradol)Injection Rivka Avina PA-C 04/22/2019 Injection Methylprednisolone Acetate 20 MGInjection Rivka Avina PA-C 04/22/2019 Immunizations CPT Code Status Date Vaccine Lot # [id number] Given 10/11/2023 Influenza Vaccine High Do se 0.5ML Age 65 & > [id number] 33266 Given 10/21/2021 Influenza Vaccine High Do se 0.5ML Age 65 & > [id number] 92340 Given 01/28/2021 Influenza Virus Vaccine, Quadrivalent, Im Use 05703 Given 09/30/2019 Influenza Vacci ne, Inactivated, Subunit, Adjuvanted, For [facility] [id number] 20341 Given 02/25/2019 Pneumococcal Vaccine/Pneu movax 23 [id number] 25473 Given 09/21/2017 Zostavax Vaccine 59868 Given 09/14/2017 Pneumococcal Conjugate-Pr evnar 13 [id number] 60054 Given 09/14/2017 Influenza Vac, Split, Preservative Free High Dose Age 65 & > [id number] Given 07/07/2016 Tdap (Tetanus, diphtheria & acel. pertussis) Adacel or Boostrix [id number] 90841 Refused 06/17/2024 Moderna Sars-Co v-2 (Cov-19) vacc,100 mcg/ 0.5 mL 12Y+EMR Doc Only 60115 Refused 02/22/2023 Moderna Sars-Co v-2 (Cov-19) vacc,100 mcg/ 0.5 mL 12Y+EMR Doc Only 20301 Refused 02/15/2021 Moderna Sars-Co v-2 (Cov-19) vacc,100 mcg/ 0.5 mL 12Y+EMR Doc Only 10146 Refused 12/04/2020 Shingrix 54744 Refused 07/03/2017 Influenza Virus Vaccine, Quadrivalent, Im Use 53663 Refused 03/02/2017 Zostavax Vaccine 82600 Refused 03/02/2017 Pneumococcal Vaccine/Pneu movax 23 [id number] Refused 03/02/2017 Influenza Virus Vaccine, Quadrivalent, Im Use 50439 Refused 03/02/2017 Pneumococcal Conjugate-Pr evnar 13 Vital Signs Date Vital Result Comment 06/17/2024 8:50am BP Systolic 130 mmHg BP Diastolic 80 mmHg Body Temperature 97.6 F Heart Rate 75 /min Respiratory Rate 20 /min 05/23/2024 3:03pm BP Systolic 146 mmHg BP Diastolic 88 mmHg Body Temperature 98.2 F Heart Rate 76 /min Respiratory Rate 20 /min Results Test Acquired Date Facility Test Result H/L Range N ote Laboratory test finding 04/22/2024 [facility] [address] [place] [address] [phone] Potassium 4.8 mEq/L 3.5-5.0 Laboratory test finding 03/29/2024 [facility] [address] [place] [address] Potassium 5.2 mEq/L High 3.5-5.0 BMP 03/26/2024 [facility] [address] [place] [address] Glucose 88 mg/dL 70-110 BUN 28 mg/dL High 6-25 Creatinine 0.9 mg/dL 0.5-1.2 Sodium 140 mEq/L 135-145 Potassium 5.5 mEq/L High 3.5-5.0 Chloride 101 mEq/L 95-107 Co-2 27 mEq/L 24-31 Calcium 10.2 mg/dL 8.5-10.6 GFR 65 ML/MIN/1.7 3SQM >60 Laboratory test finding 03/08/2024 [facility] [address] [place] [address] [phone] Potassium 5.1 mEq/L High 3.5-5.0 Comp. Met 03/01/2024 [facility] [address] [place], [place] [address] Glucose 93 mg/dL 70-110 BUN 17 mg/dL [...] GFR 87 ML/MIN/1.7 3SQM >60 Lipid 03/01/2024 [facility] [address] [place], [place] [id number] Cholesterol 225 mg/dL High 0-200 1 Triglyceride 70 mg/dL 0-150 2 HDLD 95 mg/dL See Comment 3 Measured LDL 119 mg/dL 0-130 4 Calc VLDL 14.0 mg/dL See Comment 5 Chol/HDL 2.4 RATIO See Comment 6 Non-HDL 130 mg/dL See Comment 7 CBC W/Diff 03/01/2024 [facility] [address] [place] [address] WBC 7.9 10^3/M3 3.1-9.2 RBC 4.94 10^6/M3 3.70-5.50 HGB 15.3 GR/DL 11.5-16.1 HCT 44.7 % 34.5-47.8 MCV 90.4 CUMICR 82.6-95.8 MCH 30.9 PICOGR 27.9-32.9 MCHC 34.2 % 32.6-35.4 RDW 13.7 % 11.4-14.6 PLT 253 10^3/M3 140-350 MPV 7.6 CUMICR 7.0-10.6 %Neut 64.1 % 40.0-75.0 %Lymph 26.0 % 17.0-45.0 %Alexander 7.3 % 1.0-11.0 %Eos 2.0 % 0.0-6.0 %Baso 0.6 % 0.0-2.0 #Neut 5.1 10^3/M3 1.5-8.0 #Lymph 2.1 10^3/M3 0.8-3.2 #Alexander 0.6 10^3/M3 0.0-0.8 #Eos 0.2 10^3/m3 0.0-0.4 #Baso 0.0 10^3/m3 0.0-0.2 Laboratory test finding 03/01/2024 [facility] [address] [place] [address] FRT4 0.99 ng/dL 0.75-1.54 TSH 1.29 uIU/mL [...] LDL Target Procedures Date Code Description Status 06/17/2024 J1885 Injection Ketoro lac Tromethamine Per 15 mg/.5cc (Toradol) Completed 05/23/2024 J1885 Injection Ketoro lac Tromethamine Per 15 mg/.5cc (Toradol) Completed 04/22/2024 41298 Venipuncture Routine Complet ed 04/17/2024 [id number] Mammogram Completed 03/29/2024 86511 Venipuncture Routine Complet ed 03/26/2024 37289 Venipuncture Routine Complet ed 03/08/2024 72267 Venipuncture Routine Complet ed 03/01/2024 78606 Venipuncture Routine Complet ed 03/01/2024 1101F PT SCR Future Fall Risk, No Fall Or 1 W/Out Injury Completed 01/28/2021 [id number] Colonoscopy Completed 08/22/2019 [id number] Bone Mineral Density Test Co mpleted Medical Devices Description No Information Available Encounters Type Date Location Provider Dx Diagnosis Office Visit 06/17/2024 8:45a Tanja Cuenca PA-C M51.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 disc disorders w radiculopathy, lumbar region Office Visit 05/23/2024 3:00p Tanja Avina PA-C M51.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 disc disorders w radiculopathy, lumbar region Office Visit 03/01/2024 9:00a Tanja Avina PA-C Z00.01 Encounter for general adult medical [...] oid nodule Assessments Date Code Description Provider 06/17/2024 M51.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 d isc disorders with [...] abnormal findings of blood chemistry Lab - [place] 03/01/2024 Z00.01 Encounter for [facility] adult medical examination with abnormal findings [...] Avina PA-C Plan of Treatment Future Appointment(s):* 08/22/2024 8:30 am - Rivka Avina PA-C at [place] * 09/27/2024 9:00 am - Rivka Avina PA-C at [place] * 09/02/2024 7:30 am - [place] 06/17/2024 - Everett Cuenca PA-C* M51.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 disc disorders with radiculopathy, lumbar region* New Medication:* Metaxalone 800 mg - take 1 tablet by mouth every 6-8 hours as needed for pain/muscle spasms * Comments:* Patient has acute exacerbation of known lumbar disc disease with right lower extremity radiculopathy. Will treat patient acutely with 60 mg of Toradol IM in the office today. Encouraged patient to restart taper of oral prednisone that she has at home. Will give patient a different muscle relaxer touse instead of tizanidine to see if it is more effective. Encouraged patient to restart gabapentin as previously prescribed. Encouraged patient to stay on the gabapentin until she is evaluated by neurosurgeon. Will refer patient to Dr. Glover for further evaluation and treatment of abnormal MRI/right lower extremity radicular symptoms. She is to go to the ER if pain is uncontrolled or if she develops any bowel or bladder dysfunction/anesthesias. Patient verbalized understanding of the assessment and plan. * Follow up:* Refer to Dr. Glover in [place] for eval and treat of abnormal MRI/radicular symptoms * All* Comments:* Verbalized understanding of A&P. Functional Status Description No Information Available Mental Status Description No Information Available Referrals Refer to Reason for Referral Status Appt Papito Wood M.D. Closed 07/19 [facility] [address] [place] [id number] [phone]"
--- OUTSIDE RECORDS SUMMARY | 2024-09-11 11:24 | External Medical Summary ---
"Continuity of Care Document (CCD) Created on: August 22, 2024 Cande Maldonado External Reference #: [id number] : [id number] Sex: Female Author Name Unknown Organization [place] Address [address], [place] [address] Phone [phone] Care Team Providers Care Shredding Specialist Name Role Phone Papito Glover M.D. Care Team Information Rece iver [phone] Problems Active Problems Provider Date Right side [...] Order ing Provider Date Aspirin 81 Low Rgkf37te Chewtabs 1 by mouth every day 90units Joshua Varma, DO 08/22/2024 Vitamin D3 Maximum Gbiowgdc888xre (5000 Ut) Capsules 1 by mouth every day 90caps Joshua Varma, DO 08/22/2024 Isenhsbv32oh Tablets 1 by mouth tab every 8 hours as needed pain/muscle spasm 90tabs David Amezcua JR, DO 06/17/2024 Fluocinolone Acetonide0.01% Oil 5 gtt in affected ears bid x 7 days prn 20ml Joshua Varma, 03/14/2024 Hitwzwjf84ffr/0.5ML Suspension Rec 0.5 milliliters intramuscular x 1 1units Joshua Varma, DO 03/01/2024 [id number] Capsules 1 po q 4 hours prn. Do not exceed 6/day 14caps G44.209 Joshua Varma, DO 03/01/2024 Multivitamin AdultTablets 1 by mouth every day Unknown Jvrfd01le Tablets 1 by mouth every day N95.1 Unknown Calcium [id number] Tablets 1 by mouth once a day Unknown Stool SoftenerCapsules 1 by mouth every day Unknown History Medications Jhlryaobnp149ed Tablets take 1 tablet by mouth every 6-8 hours as needed for pain/muscle spasms 90tabs M51.16 David Amezcua JR, DO 06/17/2024 - 06/17/2024 Rfwlaecfnd757mh Capsules 1 by mouth every night at bedtime day 1, 1 by mouth twice a day day 2, then 1 by mouth three times a day 90caps M51.16 Joshua Varma, DO 05/23/2024 - 08/22/2024 Ruspuoyglz62np Tablets 4 tabs by mouth days 1-2, [...] PA-C 02/09/2024 Injection Kenalog 10 MG NDC [id number] Joshua Varma, DO 1 12/03/2022 Injection Ketorolac Trometha mine Per 15 mg/.5cc (Toradol)Injection Raven perez MD 07/03/2023 Injection Methylprednisolone Acetate 20 MGInjection Raven Lord MD Injection Kenalog 10 MG NDC [id number] Joshua Varma, DO 0 05/31/2021 Injection Methylprednisolone Acetate 20 MGInjection Joshua Varma, DO 03/10/2021 Injection Kenalog 10 MG NDC [id number] Joshua Varma, DO 0 12/04/2020 Injection Ketorolac Trometha mine Per 15 mg/.5cc (Toradol)Injection Rivka Avina PA-C 08/28/2020 Injection Methylprednisolone Acetate 20 MGInjection Joshua Varma, DO 08/25/2020 Injection Ketorolac Trometha mine Per 15 mg/.5cc (Toradol)Injection Rivka Avina PA-C 04/22/2019 Injection Methylprednisolone Acetate 20 MGInjection Rivka Avina PA-C 04/22/2019 Immunizations CPT Code Status Date Vaccine Lot # [id number] Given 08/22/2024 Influenza Vac, Split, Preservative Free High Dose Age 65 & > [id number] Given 10/11/2023 Influenza Vaccine High Do se 0.5ML Age 65 & > [id number] 23775 Given 10/21/2021 Influenza Vaccine High Do se 0.5ML Age 65 & > [id number] 54281 Given 01/28/2021 Influenza Virus Vaccine, Quadrivalent, Im Use 43762 Given 09/30/2019 Influenza Vacci ne, Inactivated, Subunit, Adjuvanted, For Intrmusc [id number] 96391 Given 02/25/2019 Pneumococcal Vaccine/Pneu movax 23 [id number] 53872 Given 09/21/2017 Zostavax Vaccine 89431 Given 09/14/2017 Pneumococcal Conjugate-Pr evnar 13 [id number] 56475 Given 09/14/2017 Influenza Vac, Split, Preservative Free High Dose Age 65 & > [id number] Given 07/07/2016 Tdap (Tetanus, diphtheria & acel. pertussis) Adacel or Boostrix [id number] Refused 08/22/2024 Shingrix [id number] Refused 06/17/2024 Moderna Sars-Co v-2 (Cov-19) vacc,100 mcg/ 0.5 mL 12Y+EMR Doc Only 23676 Refused 02/22/2023 Moderna Sars-Co v-2 (Cov-19) vacc,100 mcg/ 0.5 mL 12Y+EMR Doc Only [id number] Refused 02/15/2021 Moderna Sars-Co v-2 (Cov-19) vacc,100 mcg/ 0.5 mL 12Y+EMR Doc Only [id number] Refused 12/04/2020 Shingrix 12350 Refused 07/03/2017 Influenza Virus Vaccine, Quadrivalent, Im Use [id number] Refused 03/02/2017 Zostavax Vaccine [id number] Refused 03/02/2017 Pneumococcal Vaccine/Pneu movax 23 [id number] Refused 03/02/2017 Influenza Virus Vaccine, Quadrivalent, Im Use 91901 Refused 03/02/2017 Pneumococcal Conjugate-Pr evnar 13 Vital [...] Range N ote Laboratory test finding 04/22/2024 [facility] [address] [place] [address] [phone] Potassium 4.8 mEq/L 3.5-5.0 Laboratory test finding 03/29/2024 [facility] [address] [place] [address] Potassium 5.2 mEq/L High 3.5-5.0 BMP 03/26/2024 [facility] [address] [place] [address] Glucose 88 mg/dL 70-110 BUN 28 mg/dL High 6-25 Creatinine 0.9 mg/dL 0.5-1.2 Sodium 140 mEq/L 135-145 Potassium 5.5 mEq/L High 3.5-5.0 Chloride 101 mEq/L 95-107 Co-2 27 mEq/L 24-31 Calcium 10.2 mg/dL 8.5-10.6 GFR 65 ML/MIN/1.7 3SQM >60 Laboratory test finding 03/08/2024 [facility] [address] [place] [address] Potassium 5.1 mEq/L High 3.5-5.0 Comp. Met 03/01/2024 [facility] [address] [place] [address] [phone] Glucose 93 mg/dL 70-110 BUN 17 [...] GFR 87 ML/MIN/1.7 3SQM >60 Lipid 03/01/2024 [facility] [address] [place] [address] [phone] Cholesterol 225 mg/dL High 0-200 1 Triglyceride 70 mg/dL 0-150 2 HDLD 95 mg/dL See Comment 3 Measured LDL 119 mg/dL 0-130 4 Calc VLDL 14.0 mg/dL See Comment 5 Chol/HDL 2.4 RATIO See Comment 6 Non-HDL 130 mg/dL See Comment 7 CBC W/Diff 03/01/2024 [facility] [address] [place], [place] [address] WBC 7.9 10^3/M3 3.1-9.2 RBC 4.94 10^6/M3 3.70-5.50 HGB 15.3 GR/DL 11.5-16.1 HCT 44.7 % 34.5-47.8 MCV 90.4 CUMICR 82.6-95.8 MCH 30.9 PICOGR 27.9-32.9 MCHC 34.2 % 32.6-35.4 RDW 13.7 % 11.4-14.6 PLT 253 10^3/M3 140-350 MPV 7.6 CUMICR 7.0-10.6 %Neut 64.1 % 40.0-75.0 %Lymph 26.0 % 17.0-45.0 %Gonzales 7.3 % 1.0-11.0 %Eos 2.0 % 0.0-6.0 %Baso 0.6 % 0.0-2.0 #Neut 5.1 10^3/M3 1.5-8.0 #Lymph 2.1 10^3/M3 0.8-3.2 #Gonzales 0.6 10^3/M3 0.0-0.8 #Eos 0.2 10^3/m3 0.0-0.4 #Baso 0.0 10^3/m3 0.0-0.2 Laboratory test finding 03/01/2024 [facility] [address] [place] [address] [phone] FRT4 0.99 ng/dL 0.75-1.54 TSH 1.29 [...] Tromethamine Per 15 mg/.5cc (Toradol) Completed 04/22/2024 08573 Venipuncture Routine Complet ed 04/17/2024 [id number] Mammogram Completed 03/29/2024 09172 Venipuncture Routine Complet ed 03/26/2024 64069 Venipuncture Routine Complet ed 03/08/2024 35591 Venipuncture Routine Complet ed 03/01/2024 05459 Venipuncture Routine Complet ed 03/01/2024 1101F PT SCR Future Fall Risk, No Fall Or 1 W/Out Injury Completed 01/28/2021 [id number] Colonoscopy Completed 08/22/2019 [id number] Bone Mineral Density Test Co mpleted Medical [...] MD, PhD 04/22/2024 [facility] E87.5 Hyperkalemia Joshua Varma, DO 03/29/2024 [facility] E87.5 Hyperkalemia Joshua Varma, DO 03/26/2024 E87.5 [facility] 03/08/2024 R79.89 Other specified abnormal findings of blood chemistry Joshua Varma, DO 03/08/2024 R79.89 Other specified abnormal findings of blood chemistry Lab - [place] 03/01/2024 Z00.01 Encounter for [facility] adult medical examination with abnormal findings [...] 9:00 am - Rivka Avina PA-C at [place] * 09/02/2024 7:30 am - Lab - [place] 08/22/2024 - Rivka Avina PA-C* E04.1 Nontoxic [...] Follow up:* I need recent cxr from [facility] Functional Status Description No Information Available Mental Status Description No Information Available Referrals Refer to Reason for Referral Status Appt Papito Wood M.D. Closed 07/19 [facility] [address] [address] [phone]"
--- NOTE | 2024-09-11 11:47 | Anesthesiology Progress Note ---
Date of Service September 11, 2024 Anesthesia Post Procedure Vital Signs Vital Signs: Temp Pulse Pulse Resp BP Pulse Ox O2 Del Method 09/11/24 11:25 36.4 C L 77 10 L 151/72 H 94 Room Air 09/11/24 11:15 79 16 154/81 H 97 Oxymask 09/11/24 11:05 83 13 157/82 H 96 Oxymask 09/11/24 10:58 36.0 C L 95 H 16 159/84 H 94 Oxymask 09/11/24 08:03 36.7 C 66 18 180/84 H 96 Room Air O2 Flow Rate 09/11/24 11:25 09/11/24 11:15 5 09/11/24 11:05 5 09/11/24 10:58 5 09/11/24 08:03 Pain Intensity Back: Pain Intensity: 0 Transfer of Care Handoff Completed per policy Notes Mental Status: alert / awake / arousable Patient Amnestic to Procedure: Yes Nausea / Vomiting: adequately controlled Pain: adequately controlled Airway Patency, RR, SpO2: stable & adequate BP & HR: stable & adequate Hydration State: stable & adequate Anesthetic Complications: no major complications apparent
[2024-09-11] MEDS ORDERED: FAMOTIDINE 20 MG TAB PO PRN (11:54)
[2024-09-11] MEDS ORDERED: DO NOT ADMINISTER FLU VACCINE PRN (11:54)
[2024-09-11] MEDS ORDERED: NALOXONE HCL 0.4 MG/1 ML VIAL/CARP IV PRN (11:54)
[2024-09-11] MEDS ORDERED: ONDANSETRON 4 MG OD TAB PO PRN (11:54)
[2024-09-11] MEDS ORDERED: LORazepam 0.5 MG TAB PO PRN (11:54)
[2024-09-11] MEDS ORDERED: HYDROmorphone INJ 0.5 MG/0.5 ML SYR IV PRN (11:54)
[2024-09-11] MEDS ORDERED: SOD PHOSPHATE/SOD BIPHOSPHATE ENEMA 132 ML BTL PR PRN (11:54)
[2024-09-11] MEDS ORDERED: MAGNESIUM HYDROXIDE SUSP 30 ML UDC PO PRN (11:54)
[2024-09-11] MEDS ORDERED: LORazepam 2 MG/1 ML VIAL IV PRN (11:54)
[2024-09-11] MEDS ORDERED: PROMETHAZINE 12.5 MG/50.5 ML BAG IV PRN (11:54)
[2024-09-11] MEDS ORDERED: ALUMINUM/MAGNESIUM SUSP 30 ML UDC PO PRN (11:54)
[2024-09-11] MEDS ORDERED: bisacodyL 10 MG SUPP PR PRN (11:54)
[2024-09-11] MEDS ORDERED: diphenhydrAMINE Capsule 25 MG CAP PO PRN (11:54)
[2024-09-11] MEDS ORDERED: HYDROmorphone INJ 1 MG/ML SYRINGE IV PRN (11:54)
[2024-09-11] MEDS ORDERED: METOCLOPRAMIDE HCL INJ 5 MG/ML 2 ML VIAL IV PRN (11:54)
[2024-09-11] MEDS ORDERED: hydrOXYzine HCl 25 MG TAB PO PRN (11:54)
[2024-09-11] MEDS ORDERED: DO NOT ADMINISTER PNEUMOCOCCAL VACCINE PRN (11:54)
[2024-09-11] MEDS ORDERED: ACETAMINOPHEN 1,000 MG/100 ML VIAL IV PRN (11:54)
[2024-09-11] MEDS: traMADol HCL 50 MG TABLET PO PRN (12:35)
--- NOTE | 2024-09-11 12:55 | Consultation ---
Date of Consultation September 11, 2024 Assessment & Plan (1) Neurogenic claudication due to lumbar spinal stenosis: Plan This is a 74 yr old F who has a significant PMH of Chronic back pain, breast cancer and kidney stones who presents to elective lumbar procedure by Dr. Smith. S/p L2-L3 decompression and fusion by Dr. Smith POD #0 -pain/wound/therapies as per Dr. Smith -monitor hgb, pre op was normal at 14.0 -encourage ISP Hx of L breast ca s/p chemo/xrt 15 yrs ago Depression: chronic, stable continue paxil DVT ppx: per primary Full Code PCP: Avani Lewis Dispo: per primary Pt was seen and examined in collaboration with Dr. Harris, please see addendum I spent a total of 30 minutes reviewing notes, outpatient records, labs, medication, coordinating, documenting and providing care for this patient excluding time spent in the performance of separately billed services. Thank you for this consultation. We will follow the patient with you during their hospital stay. You can reach a member of the [facility] Hospitalist Team 29/05 via hospitalist role on tiger text. Supervising Physician Co-Signing Physician Notes Patient is a 74-year-old female with history of breast cancer S/P left breast lumpectomy, chemotherapy and radiation therapy, vitamin D deficiency, mood disorder and other medical problems was consulted for postop medical management. Patient underwent lumbar decompression, fusion surgery by Dr. Smith today. Patient is doing well postoperatively. She denies any significant pain at surgical site. Also denies any chest pain, dyspnea, nausea, vomiting, dizzin ess, abdominal pain. Offers no complaints currently. I personally reviewed recent labs, chest x-ray, EKG, old records. Currently vital stable. Physical Exam: Vitals signs as noted above General Appearance:Moderately built and nourished, no apparent distress Head: normocephalic, Atraumatic Eyes: normal inspection, EOMI Neck: supple, Trachea midline Respiratory/Chest: Normal breath sounds, CTA, No accessory muscle use Cardiovascular: S1, S2, No murmur Abdomen/GI:Soft, Non tender, Bowel sounds present Back: Surgical site in dressing, +drain Extremities/Musculoskeletal:normal inspection, no edema Neurologic/Psych:AAOX3, grossly no focal neurological deficits Skin: normal color, warm Lumbar spinal stenosis with neurogenic claudication S/P lumbar decompression, fusion surgery by Dr. Smith on 09/11/2024 POD # 0 Pain is controlled Monitor for post OP anemia Bowel regimen to prevent constipation Activity & DVT Px as per Primary team Incentive spirometer Other chronic conditions: Continue home medications as able I personally interviewed and examined at bedside. Patient's care is coordinated with Lucero Salazar PA-C. I have reviewed the advanced practitioner's docum entation, and I agree with plan of care. Please refer to the documentation above for details of patient's presentation and for discussion of other issues. I spent a total [id number] coordinating, documenting, and providing care for this patient excluding time spent in the performance of separately billed services. History of Present Illness Requesting Physician: Dr. Smith Reason for Consultation: Post op medical management Attending Physician: Marcos Smith, DO History of Present Illness This is a 74 yr old F who has a significant PMH of Chronic back pain, breast cancer and kidney stones who presents to elective lumbar procedure by Dr. Smith. She underwent a L2-L3 decompression and fusion. She tolerated the procedure well. Outpt records were reviewed and internal chart reviewed. Hx obtained from pt and family members at bedside. She feels well post operatively. She denies f/c/s, chest pain, sob, n/v, abd pain. Allergies Allergy/AdvReac Type Severity Reaction Status Date / Time gabapentin AdvReac Intermediate hair loss Verified 09/11/24 07:59 nitrofurantoin AdvReac Intermediate Rash Verified 09/11/24 07:59 [From Macrobid] Home Medications Medication Instructions Recorded Confirmed Type calcium 600 mg (as 1 tab PO QAM 06/29/21 09/11/24 History carbonate)-vitamin D3 5 mcg (200 unit) tablet docusate sodium 100 mg capsule 100 mg PO QAM 06/29/21 09/11/24 History (Stool Softener) multivitamin 1 tab PO QAM 06/29/21 09/11/24 History paroxetine HCl 20 mg tablet (Paxil) 20 mg PO QAM 06/29/21 09/11/24 History acetaminophen 500 mg tablet 1,000 mg PO Q6H PRN Pain 08/05/24 09/11/24 History baclofen 10 mg tablet 10 mg PO Q8H PRN muscle spasms 08/05/24 09/11/24 History cholecalciferol (vitamin D3) 125 125 mcg PO DAILY 09/11/24 09/11/24 History mcg (5,000 unit) tablet (Vitamin D3) Patient History Medical History Adverse effect of anesthesia Slow to wake History of trigger finger Right - Thumb Nausea and vomiting after administration of anesthetic agent denies needing scop patch Chronic back pain SI joint Kidney stones hx - passed on own Breast cancer (~01/2010) hx - left Chemo/Radiation Hot flashes currently taking paxil for Surgical History Hx of hysterectomy Hx of bilateral cataract extraction History of bunionectomy of right great toe History of repair of rotator cuff right S/P epidural steroid injection SI Joint History of colonoscopy History of tonsillectomy Hx of lumpectomy left with sentinel node biopsy Family History Other No family history of adverse response to anesthesia Social History Smoking Status: Never smoker Second Hand Exposure: No; Do You Dip or Chew Tobacco: No; Tobacco Cessation Education Requested by Patient: No Hx Alcohol Use: Yes Alcohol type: wine Hx Substance Use: No Preferred Language: Icelandic Communication Ability: Effective Milk And Cream Grader Required: No Beliefs That Will Affect Care: None Current Living Situation: Spouse Other Information That Helps Us Care for You: No Feels Safe at Home: Yes Safety Concerns: Feels Safe At This Time Assistive Devices: Glasses Review of Systems Review of Systems: All systems reviewed & are unremarkable except as noted in HPI & below Physical Exam Physical Exam: please refer to Dr. Harris addendum for physical exam findings. Results & Data Vital Signs (Past 12 Hours) Vital Signs Temp Pulse Pulse Resp BP Pulse Ox O2 Del Method 09/11/24 12:20 34.8 C L 80 17 128/62 91 Room Air 09/11/24 11:45 36.3 C L 79 16 130/73 93 Room Air 09/11/24 11:25 36.4 C L 77 10 L 151/72 H 94 Room Air 09/11/24 11:15 79 16 154/81 H 97 Oxymask 09/11/24 11:05 83 13 157/82 H 96 Oxymask 09/11/24 10:58 36.0 C L 95 H 16 159/84 H 94 Oxymask 09/11/24 08:03 36.7 C 66 18 180/84 H 96 Room Air O2 Flow Rate 09/11/24 12:20 09/11/24 11:45 09/11/24 11:25 09/11/24 11:15 5 09/11/24 11:05 5 09/11/24 10:58 5 09/11/24 08:03 Laboratory Results Pre op labs from 08/15 were independently reviewed and interpreted by myself. Diagnostic Findings Pre op CXR from 08/15: No acute cardiopulmonary abnormality Medications Administered Current Inpatient Medications Acetaminophen (Acetaminophen 500 Mg Tab) 1,000 mg PO PREOP BRITT Stop: 09/11/24 18:00 Last Admin: 09/11/24 08:12 Dose: 1,000 mg Acetaminophen (Acetaminophen 500 Mg Tab) 1,000 mg PO Q8H PRN PRN Reason: MILD Pain Scale 1,2,3 & Pre PT Stop: 10/11/24 11:53 Al Hydrox/Mg Hydrox/Simethicone (Aluminum/Magnesium Susp 30 Ml Udc) 30 ml PO Q6H PRN PRN Reason: Dyspepsia Stop: 10/11/24 11:53 Atropine Sulfate (Atropine Sulfate 0.1 Mg/Ml 10ml Syr) 0.5 mg IV Q1M PRN PRN Reason: PACU Use-HR<40 &/or Bradycardi Stop: 09/11/24 16:53 Bisacodyl (Bisacodyl 10 Mg Supp) 10 mg TX DAILY PRN PRN Reason: Constipation Stop: 10/11/24 11:53 Calcium/Vitamin D (Calcium 600mg + Vit D 400 Iu Tab) 1 tab PO QAM BRITT Stop: 10/12/24 08:59 Celecoxib (Celebrex 200 Mg Cap) 200 mg PO PREOP BRITT Stop: 09/11/24 18:00 Last Admin: 09/11/24 08:13 Dose: 200 mg Diphenhydramine HCl (Diphenhydramine Capsule 25 Mg Cap) 25 mg PO Q6H PRN PRN Reason: Allergic Rhinitis/Insomnia Stop: 10/11/24 11:53 Ephedrine Sulfate (Ephedrine Sulfate 50 Mg/Ml Amp) 5 mg IV Q5M PRN PRN Reason: PACU Use Only-SBP<90 mmHg Stop: 09/11/24 16:53 Famotidine (Famotidine 20 Mg Tab) 20 mg PO Q12H PRN PRN Reason: Dyspepsia Stop: 10/11/24 11:53 Fentanyl Citrate (Fentanyl Citrate Pf 100 Mcg/2 Ml Vial) 50 mcg IV Q5M PRN PRN Reason: PACU Use Only-Pain Stop: 09/11/24 16:53 Gabapentin (Gabapentin 300 Mg Cap) 300 mg PO PREOP BRITT Stop: 09/11/24 18:00 Last Admin: 09/11/24 08:13 Dose: Not Given Hydromorphone HCl (Hydromorphone Inj 0.5 Mg/0.5 Ml Syr) 0.5 mg IV Q3H PRN PRN Reason: MODERATE Pain (Scale 4,5,6) & Pre PT Stop: 09/25/24 11:53 Hydromorphone HCl (Hydromorphone Inj 1 Mg/Ml Syringe) 1 mg IV Q3H PRN PRN Reason: SEVERE Pain (Scale 7,8,9,10) Stop: 09/25/24 11:53 Hydroxyzine HCl (Hydroxyzine Hcl 25 Mg Tab) 25 mg PO Q8H PRN PRN Reason: Anxiety Stop: 10/11/24 11:53 Lactated Ringer's (Lr) 1,000 mls @ 15 mls/hr IV .Q24H BRITT Stop: 09/12/24 05:59 Last Infusion: 09/11/24 09:18 Dose: Infused Lactated Ringer's (Lr) 1,000 mls @ 60 mls/hr IV .[id number] BRITT Stop: 09/11/24 22:39 Last Admin: 09/11/24 08:13 Dose: Not Given Cefazolin Sodium (Ancef 2000mg) 2,000 mg in 15 mls @ 3.75 mls/min IV PREOP BRITT; Protocol Stop: 09/11/24 18:00 Last Admin: 09/11/24 09:30 Dose: 3.75 mls/min Promethazine HCl 6.25 mg/ (Sodium Chloride) 50.25 mls @ 204 mls/hr IV ONCE PRN PRN Reason: PACU Use Only-Nausea/Vomiting Stop: 09/11/24 16:53 Acetaminophen (Ofirmev) 1,000 mg in 100 mls @ 400 mls/hr IV Q8H PRN PRN Reason: Pain Rating 1-3 & Pre PT Stop: 09/12/24 11:54 Cefazolin Sodium (Ancef 1000mg) 1,000 mg in 7.5 mls @ 2.5 mls/min IV Q8H BRITT; Protocol Stop: 09/12/24 01:02 Promethazine HCl (Phenergan) 12.5 mg in 50.5 mls @ 202 mls/hr IV Q6H PRN PRN Reason: Nausea And Vomiting Stop: 10/11/24 11:53 Dexamethasone 6 mg/ Syringe 1.5 mls @ 1 mls/min IV DAILY BRITT Stop: 09/14/24 09:02 Influenza Virus Vaccine Quadrival (Do Not Administer Flu Vaccine) 1 each N/A PRN PRN PRN Reason: Notification Stop: 10/11/24 11:53 Lorazepam (Lorazepam 0.5 Mg Tab) 0.5 mg PO Q8H PRN PRN Reason: Sedation/Anxiety Stop: 10/11/24 11:53 Lorazepam (Lorazepam 2 Mg/1 Ml Vial) 0.5 mg IV Q8H PRN; Protocol PRN Reason: Sedation/Anxiety Stop: 10/11/24 11:53 Magnesium Hydroxide (Magnesium Hydroxide Susp 30 Ml Udc) 30 ml PO Q24H PRN PRN Reason: Constipation Stop: 10/11/24 11:53 Metoclopramide HCl (Metoclopramide Hcl Inj 5 Mg/Ml 2 Ml Vial) 10 mg IV Q6H PRN PRN Reason: Nausea &/or Vomiting Stop: 10/11/24 11:53 Multivitamins (Multivitamin Tab) 1 tab PO QAM [facility] Stop: 10/12/24 08:59 Naloxone HCl (Naloxone Hcl 0.4 Mg/1 Ml Vial/Carp) 0.1 mg IV Q5M PRN PRN Reason: Oversedation/Resp depression Stop: 10/11/24 11:53 Ondansetron HCl (Ondansetron Inj 2 Mg/Ml 2 Ml Vial) 4 mg IV ONCE PRN PRN Reason: PACU Use Only-Nausea/Vomiting Stop: 09/11/24 16:53 Ondansetron HCl (Ondansetron Inj 2 Mg/Ml 2 Ml Vial) 4 mg IV Q6H PRN PRN Reason: Nausea &/or Vomiting Stop: 10/11/24 11:53 Ondansetron HCl (Ondansetron 4 Mg Od Tab) 4 mg PO Q6H PRN PRN Reason: Nausea Stop: 10/11/24 11:53 Oxycodone HCl (Oxycodone Hcl Ir 5 Mg Tab (Immediate Release)) 5 - 10 mg PO Q4H PRN PRN Reason: Pain & Pre PT Stop: 09/25/24 11:53 Paroxetine HCl (Paroxetine Hcl 20 Mg Tab) 20 mg PO QAM BRITT Stop: 10/12/24 08:59 Pneumococcal Polyvalent Vaccine (Do Not Administer Pneumococcal Vaccine) 1 each N/A PRN PRN PRN Reason: Notification Stop: 10/11/24 11:53 Polyethylene Glycol (Polyethylene (Miralax) 17 Gm Pack) 17 gm PO Q6 BRITT Stop: 10/12/24 05:59 Senna/Docusate Sodium (Docusate Sodium/Senna 50/8.6mg Tab) 2 tab PO HS BRITT Stop: 10/11/24 20:59 Sodium Biphosphate/Sodium Phosphate (Sod Phosphate/Sod Biphosphate Enema 132 Ml Btl) 132 ml TX ONE PRN PRN Reason: Constipation Stop: 10/11/24 11:53 Tramadol HCl (Tramadol Hcl 50 Mg Tablet) 50 - 100 mg PO Q4H PRN PRN Reason: Moderate-Severe pain & Pre PT Stop: 10/11/24 11:53 Last Admin: 09/11/24 12:35 Dose: 100 mg Vitamin D (Cholecalciferol 125 Mcg (5,000 Units) Tab) 125 mcg PO DAILY BRITT Stop: 10/12/24 08:59 ECG Additional Comments: I have independently reviewed and interpreted patient's admitting EKG which revealed: NSR, 72 BPM
[2024-09-11] MEDS: ceFAZolin 1000MG 1,000 MG/7.5 ML SYR IV SCH (16:51)
[2024-09-11] MEDS: DOCUSATE SODIUM/SENNA 50/8.6MG TAB PO SCH (21:29)
[2024-09-12] MEDS: POLYETHYLENE (MIRALAX) 17 GM PACK PO SCH (05:17)
[2024-09-12 06:43] LABS: Basophils # (auto) 0.02 K/uL (0.00-0.20); Basophils % (auto) 0.2 %; Eosinophils # (auto) 0.02 K/uL (0.00-0.50); Eosinophils % (auto) 0.2 %; Hematocrit (blood only) 38.1 % (37.0-47.0); Hemoglobin 12.8 g/dl (12.0-16.0); Immature Granulocytes # (auto) 0.06 K/uL (0.01-0.20); Immature Granulocytes % (auto) 0.5 %; Lymphocytes # (auto) 2.15 K/uL (1.20-3.40); Lymphocytes % (auto) 17.9 %; Mean Corpuscular Hemoglobin 29.6 pg (25.0-34.0); Mean Corpuscular Hgb Conc 33.6 g/dL (32.0-36.0); Mean Corpuscular Volume 88.2 fL (80.0-100.0); Monocytes # (auto) 0.72 K/uL (0.11-0.59); Neutrophils # (auto) 9.01 K/uL (1.40-6.50); Neutrophils % (auto) 75.2 %; Platelet Count 230 K/uL (130-400); RDW Coefficient of Variation 12.6 % (11.5-14.5); RDW Standard Deviation 41.3 fL (36.4-46.3); Red Blood Count 4.32 M/uL (4.20-5.40); White Blood Count 11.98 K/ul (4.8-10.8)
[2024-09-12 06:59] LABS: BUN Creatinine Ratio 21.7 (10-20); Calcium 9.3 mg/dl (8.6-10.3); Potassium 4.7 mmol/L (3.5-5.1)
--- NOTE | 2024-09-12 07:11 | Fluoroscopy Report ---
FL lumbar spine 2-3V CLINICAL HISTORY: L2-L3 DECOMPRESION AND FUSION COMPARISON STUDY: MRI 07/15/2024 FLUOROSCOPY TIME: 19.2 seconds FLUOROSCOPY IMAGES: 2 EXPOSURE DOSE: 13.64 mGy FINDINGS: Posterior interbody jesica and screw fusion with discectomy noted at what is labeled L2-L3 lev el. Exact numbering cannot be confirmed secondary to magnification of the images. Hardware appears in tact. There is an indeterminate J shaped radiodense small structure posterior to the L2-L3 disc space projected over the central canal on image 2. Images were submitted following completion of the surge ry. IMPRESSION: Fluoroscopic assistance as above. ACT 112: Negative or not required by law. Electronically signed by: Kevin Becerra M.D. 09/12/2024 7:10 AM
[2024-09-12] MEDS: CHOLECALCIFEROL 125 MCG (5,000 UNITS) TAB PO SCH (07:27)
[2024-09-12] MEDS: dexAMETHasone 6 MG in SYRINGE 0 ML IV SCH (07:27)
[2024-09-12] MEDS: MULTIVITAMIN TAB PO SCH (07:27)
[2024-09-12] MEDS: PARoxetine HCL 20 MG TAB PO SCH (07:27)
[2024-09-12] MEDS: CALCIUM 600MG + VIT D 400 IU TAB PO SCH (07:28)
--- NOTE | 2024-09-12 08:24 | Orthopedic Progress Note ---
Date of Service September 12, 2024 Assessment & Plan (1) Neurogenic claudication due to lumbar spinal stenosis: Plan: This time initiate physical therapy monitor her KURT output anticipate discharge home in the next few days. Admission and Anticipated Discharge Date Admission Date: September 11, 2024 Subjective Back pain controlled leg pain markedly improved Physical Exam Physical Exam: Patient is in the chair at the bedside. Discussed when to testing. Results & Data Vital Signs (Past 12 Hours) Vital Signs Temp Pulse Resp BP Pulse Ox O2 Del Method 09/12/24 07:05 36.6 C 73 18 128/70 96 Room Air 09/12/24 03:38 36.5 C 79 18 145/81 H 95 Room Air 09/11/24 23:09 36.5 C 76 18 150/75 H 94 Room Air
--- NOTE | 2024-09-12 10:45 | Hospitalist Progress Note ---
Date of Service September 12, 2024 Assessment & Plan (1) Neurogenic claudication due to lumbar spinal stenosis: Plan Ms Maldonado is a 74 yr old F who has a significant PMH of Chronic back pain, breast cancer and kidney stones who presented for elective lumbar procedure by Dr. Smith. #Lumbar spinal stenosis c/b neurogenic claudication S/p L2-L3 decompression and fusion by Dr. Smith POD #1 -pain/wound/therapies as per Dr. Smith -monitor hgb, pre op was normal at 14.0 -encourage ISP #Hx of L breast ca s/p chemo/xrt 15 yrs ago stable #Depression: chronic, stable continue paxil DVT ppx: per primary Full Code PCP: Avani Lewis Dispo: per primary Thank you for this consultation. We will follow the patient with you during their hospital stay. You can reach a member of the [facility] Hospitalist Team 29/05 via hospitalist role on tiger text. Admission and Anticipated Discharge Date Admission Date: September 11, 2024 Subjective NAEO In bedside chair, reports radiculopathy on RLE gone, endorses expected post surgical discomfort Physical Exam Constitutional: WD/WN, vitals as above Respiratory: normal respiratory effort, lungs clear to auscultation Cardiovascular: RRR, no murmur, no edema Musculoskeletal: no cyanosis or clubbing, extremities motor strength 5/5 Results & Data Results & Data Vital Signs (Past 12 Hours) Vital Signs Temp Pulse Resp BP Pulse Ox O2 Del Method 09/12/24 07:05 36.6 C 73 18 128/70 96 Room Air 09/12/24 03:38 36.5 C 79 18 145/81 H 95 Room Air 09/11/24 23:09 36.5 C 76 18 150/75 H 94 Room Air Laboratory Results Short CBC 09/12/24 Range/Units 05:51 WBC 11.98 H (4.8-10.8) K/ul Hgb 12.8 (12.0-16.0) g/dl Hct 38.1 (37.0-47.0) % Plt Count 230 (130-400) K/uL BMP 09/12/24 05:51 Sodium 140 Potassium 4.7 Chloride 103 Carbon Dioxide 31 BUN 15 Creatinine 0.69 Glucose 140 H Calcium 9.3 Medications Administered Home Medications Medication Instructions Recorded Confirmed Last Taken calcium 600 mg (as 1 tab PO QAM 06/29/21 09/11/24 09/01/24 carbonate)-vitamin D3 5 mcg (200 unit) tablet docusate sodium 100 mg capsule 100 mg PO QAM 06/29/21 09/11/24 09/01/24 (Stool Softener) multivitamin 1 tab PO QAM 06/29/21 09/11/24 09/01/24 paroxetine HCl 20 mg tablet (Paxil) 20 mg PO QAM 06/29/21 09/11/24 09/11/24 05:00 acetaminophen 500 mg tablet 1,000 mg PO Q6H PRN Pain 08/05/24 09/11/24 09/10/24 21:30 baclofen 10 mg tablet 10 mg PO Q8H PRN muscle spasms 08/05/24 09/11/24 Unknown cholecalciferol (vitamin D3) 125 125 mcg PO DAILY 09/11/24 09/11/24 09/10/24 20:00 mcg (5,000 unit) tablet (Vitamin D3) oxycodone 5 mg tablet 5 mg PO Q6H PRN pain #30 tabs 09/12/24 Unknown tramadol 50 mg tablet 50 mg PO Q6H PRN pain, moderate 09/12/24 Unknown #30 tabs Active Medications Generic Name Dose Route Start Last Admin Trade Name Paulo PRN Reason Stop Dose Admin Calcium/Vitamin D 1 tab 09/12/24 09:00 09/12/24 07:28 Calcium 600mg + Vit D 400 Iu Tab PO 10/12/24 08:59 1 tab QAM BRITT Administration Dexamethasone 6 mg/ Syringe 1.5 mls @ 1 mls/min 09/12/24 09:00 09/12/24 07:27 IV 09/14/24 09:02 1 mls/min DAILY BRITT Administration Multivitamins 1 tab 09/12/24 09:00 09/12/24 07:27 Multivitamin Tab PO 10/12/24 08:59 1 tab QAM BRITT Administration Paroxetine HCl 20 mg 09/12/24 09:00 09/12/24 07:27 Paroxetine Hcl 20 Mg Tab PO 10/12/24 08:59 20 mg QAM BRITT Administration Polyethylene Glycol 17 gm 09/12/24 06:00 09/12/24 05:17 Polyethylene (Miralax) 17 Gm Pack PO 10/12/24 05:59 17 gm Q6 BRITT Administration Senna/Docusate Sodium 2 tab 09/11/24 21:00 09/11/24 21:29 Docusate Sodium/Senna 50/8.6mg Tab PO 10/11/24 20:59 2 tab HS BRITT Administration Tramadol HCl 50 - 100 mg 09/11/24 11:54 09/11/24 21:29 Tramadol Hcl 50 Mg Tablet PO 10/11/24 11:53 100 mg Q4H PRN Administration Moderate-Severe pain & Pre PT Vitamin D 125 mcg 09/12/24 09:00 09/12/24 07:27 Cholecalciferol 125 Mcg (5,000 Units) Tab PO 10/12/24 08:59 125 mcg DAILY BRITT Administration
[2024-09-12 19:24] VITALS: O2SAT 97
[2024-09-13 07:50] VITALS: BP 118/78; RESP 15; TEMP 97.7
[2024-09-13] MEDS: ACETAMINOPHEN 500 MG TAB PO PRN (08:01)
[2024-09-13] MEDS: oxyCODONE HCL IR 5 MG TAB (IMMEDIATE RELEASE) PO PRN (08:01)
--- NOTE | 2024-09-13 10:20 | Hospitalist Progress Note ---
Date of Service September 13, 2024 Assessment & Plan (1) Neurogenic claudication due to lumbar spinal stenosis: Plan Ms Maldonado is a 74 yr old F who has a significant PMH of Chronic back pain, breast cancer and kidney stones who presented for elective lumbar procedure by Dr. Smith. Patient medically stable for discharge. #Lumbar spinal stenosis c/b neurogenic claudication S/p L2-L3 decompression and fusion by Dr. Smith POD #2 -pain/wound/therapies as per Dr. Smith -monitor hgb, pre op was normal at 14.0, post op 12, asymptomatic -encourage ISP #Hx of L breast ca s/p chemo/xrt 15 yrs ago stable #Depression: chronic, stable continue paxil DVT ppx: per primary Full Code PCP: Avani Lewis Dispo: per primary Thank you for this consultation. We will follow the patient with you during their hospital stay. You can reach a member of the [facility] Hospitalist Team 29/05 via hospitalist role on tiger text. Admission and Anticipated Discharge Date Admission Date: September 11, 2024 Subjective NAEO Reports feeling "great" today and post op discomfort managed on current regimen Ambulating with the walker as able Physical Exam Constitutional: WD/WN, vitals as above Respiratory: normal respiratory effort, lungs clear to auscultation Cardiovascular: RRR, no murmur, no edema Results & Data Results & Data Vital Signs (Past 12 Hours) Vital Signs Temp Pulse Resp BP Pulse Ox O2 Del Method 09/13/24 07:44 36.5 C 75 15 118/78 97 Room Air Medications Administered Home Medications Medication Instructions Recorded Confirmed Last Taken calcium 600 mg (as 1 tab PO QAM 06/29/21 09/11/24 09/01/24 carbonate)-vitamin D3 5 mcg (200 unit) tablet docusate sodium 100 mg capsule 100 mg PO QAM 06/29/21 09/11/24 09/01/24 (Stool Softener) multivitamin 1 tab PO QAM 06/29/21 09/11/24 09/01/24 paroxetine HCl 20 mg tablet (Paxil) 20 mg PO QAM 06/29/21 09/11/24 09/11/24 05:00 acetaminophen 500 mg tablet 1,000 mg PO Q6H PRN Pain 08/05/24 09/11/24 09/10/24 21:30 baclofen 10 mg tablet 10 mg PO Q8H PRN muscle spasms 08/05/24 09/11/24 Unknown cholecalciferol (vitamin D3) 125 125 mcg PO DAILY 09/11/24 09/11/24 09/10/24 20:00 mcg (5,000 unit) tablet (Vitamin D3) oxycodone 5 mg tablet 5 mg PO Q6H PRN pain #30 tabs 09/12/24 Unknown tramadol 50 mg tablet 50 mg PO Q6H PRN pain, moderate 09/12/24 Unknown #30 tabs Active Medications Generic Name Dose Route Start Last Admin Trade Name Freq PRN Reason Stop Dose Admin Acetaminophen 1,000 mg 09/11/24 11:54 09/13/24 08:01 Acetaminophen 500 Mg Tab PO 10/11/24 11:53 1,000 mg Q8H PRN Administration MILD Pain Scale 1,2,3 & Pre PT Calcium/Vitamin D 1 tab 09/12/24 09:00 09/13/24 08:02 Calcium 600mg + Vit D 400 Iu Tab PO 10/12/24 08:59 1 tab QAM BRITT Administration Dexamethasone 6 mg/ Syringe 1.5 mls @ 1 mls/min 09/12/24 09:00 09/13/24 08:02 IV 09/14/24 09:02 1 mls/min DAILY BRITT Administration Multivitamins 1 tab 09/12/24 09:00 09/13/24 08:02 Multivitamin Tab PO 10/12/24 08:59 1 tab QAM BRITT Administration Oxycodone HCl 5 - 10 mg 09/11/24 11:54 09/13/24 08:01 Oxycodone Hcl Ir 5 Mg Tab (Immediate Release) PO 09/25/24 11:53 5 mg Q4H PRN Administration Pain & Pre PT Paroxetine HCl 20 mg 09/12/24 09:00 09/13/24 08:02 Paroxetine Hcl 20 Mg Tab PO 10/12/24 08:59 20 mg QAM BRITT Administration Polyethylene Glycol 17 gm 09/12/24 06:00 09/13/24 05:23 Polyethylene (Miralax) 17 Gm Pack PO 10/12/24 05:59 17 gm Q6 BRITT Administration Senna/Docusate Sodium 2 tab 09/11/24 21:00 09/12/24 21:05 Docusate Sodium/Senna 50/8.6mg Tab PO 10/11/24 20:59 2 tab HS BRITT Administration Tramadol HCl 50 - 100 mg 09/11/24 11:54 09/12/24 21:05 Tramadol Hcl 50 Mg Tablet PO 10/11/24 11:53 50 mg Q4H PRN Administration Moderate-Severe pain & Pre PT Vitamin D 125 mcg 09/12/24 09:00 09/13/24 08:02 Cholecalciferol 125 Mcg (5,000 Units) Tab PO 10/12/24 08:59 125 mcg DAILY BRITT Administration
--- NOTE | 2024-09-13 10:41 | Discharge Summary ---
Date of Service September 13, 2024 Admission HPI Per Admitting Provider This is a 74-year-old female who presents with chronic persistent back and leg pain after failing course of nonoperative care is here for surgical invention. Principal Diagnosis Lumbar spinal stenosis with radiculopathy Discharge Data Allergies Allergy/AdvReac Type Severity Reaction Status Date / Time gabapentin AdvReac Intermediate hair loss Verified 09/11/24 07:59 nitrofurantoin AdvReac Intermediate Rash Verified 09/11/24 07:59 [From Macrobid] Consultations 09/11/24 11:54 Consult Hospitalist Routine Procedures Performed Operation Date: 09/11/24 09:10 Actual Procedures p L2-L3 Decompression and Fusion, Spinal Cord Monitoring(Not Applicable) - Marcos Smith DO Ordered Studies 09/11/24 09:10 [place] lumbar spine 2-3V Routine Hospital Course (1) Neurogenic claudication due to lumbar spinal stenosis: Patient 1 lumbar decompression fusion tolerated this well was taken to orthopedic for postoperative. Postop patient progressed appropriately. Marked improvement of her leg pain. Extra strength testing. KURT drain decreasing appropriately. Subsequent discharge home. Discharge orders instructions from the chart for further view. Total Time Total Time Spent Total Time Spent (In Minutes): 20 minutes Discharge Plan Discharge Items Patient Disposition: Home - Self-Care Reason For Visit: Spinal Stenosis of Lumbar Region with Radiculopath Discharge Diagnosis: Lumbar spinal stenosis with neurogenic claudication Activity: As commented below Non-emergency contact: Primary Care Provider Call non-emergency contact if: you have any medication questions Follow-up/Referrals: Joshua Varma D.O. [Primary Care Provider] - Diet: Regular Addtl Attending Provider Instructions: ACTIVITY RECOMMENDATIONS: SELF CARE INSTRUCTIONS AFTER THORACIC/LUMBAR FUSIONS 1. You may walk to your tolerance. It is good exercise for your legs and back. Expect some back and intermittent leg aches and pains. 2. You may perform "counter-top" level activities (make a sandwich, faith with a project, etc.). 3. No bending or lifting of more than 10 pounds or back twisting of any nature (roll like a log when turning in bed). 4. You may ride in a car for 20-30 minutes at a time. No driving until after your first visit with your doctor. 5. Frequent changes of position and restricting sitting to 30 minutes at a time will help limit the amount of back spasms and stiffness you may experience. 6. You may discontinue the use of ambulatory aids (cane, crutches, etc.) once your strength and confidence allow. 7. You may postal sorting officer the shower and let water strike your incision when you arrive home at least once daily. Do not take a tub bath, sit in a hot tub or go into a swimming pool until after your first recheck in the office. 8. You may resume previous diet. SPECIAL CARE INSTRUCTIONS: VERY IMPORTANT TO READ AND REVIEW A. Your surgical incision has been closed with a cosmetic suture under the skin that will dissolve in about 6 weeks. In 14 days, you can use a pair of clean scissors and cut the suture that is left outside of the skin at the ends of your incision. 1. The small skin tapes can be removed 7 days after surgery if they have not fallen off by that point. 2. You may keep the wound open to air as much as possible to promote healing after post-op day number 5 unless told otherwise by your doctor. 3. If you think the wound looks like it is becoming infected (redness or worsening drainage) and/or you are experiencing fever, chill or worsening back pain and muscle spasms, contact the office so that we may evaluate you as soon as possible. B. Complications are uncommon, but please contact us if you have any signs or symptoms of: 1. wound infection (fever higher than 102.5 degrees F, redness, separation of wound, drainage, or increasing pain from the incision) 2. blood clots in legs (pain, swelling, redness and warmth in legs) 3. urinary tract infection (fever higher than 102.5 degrees F, burning upon urination or increased frequency of urination) 4. nerve problems (inability to walk on your toes or heels, numbness, loss of bowel or bladder control) 5. any other symptoms that concern you C. Please call the office at if you have any concerns or questions about your operation or recovery. D. No smoking! Smoking drastically decreases the chance of a solid fusion. E. Do not take any anti-inflammatory medications (Indocin, Advil, Motrin, Aspirin, Naprosyn, etc.) as these may inhibit the chance of a solid fusion. Tylenol is okay to take for pain. MANAGING PAIN AFTER SPINAL SURGERY 1. Narcotic medication is intended for short-term use and will be provided for surgical pain. Surgical pain usually lasts for a period of 4-6 weeks. Narcotic medication includes Percocet, Vicodin, Darvocet, Tylenol #3 or Lortab. 2. Longer-term pain is more appropriately treated with non-narcotic medication such as Tylenol ES. 3. Muscle spasm is not appropriately treated with narcotics. Muscle relaxers such as Soma, Flexeril or Skelaxin can be used along with Tylenol ES. 4. Remember that we all live with some "aches and pains". This is not unusual or uncommon after an injury or as we get older. a. Back pain is expected and may include muscle spasms for 4 to 6 weeks after surgery. The pain should gradually improve. If the pain worsens for no apparent reason, please contact the office. b. Intermittent leg pain may also be experienced and should not be concerned about unless it worsens for no apparent reason. If so, please contact the office. 5. We will provide appropriate medication within the normal guidelines of their prescribed use. We will also be very cautious and aware of potential abuse and extended duration of patients' medication needs. a. Pain medications are for your comfort and to assist with sleep and rest so that the tissue can heal. They are not provided in order to return to normal activity and should not be used through the day. To do so or worsening pain at night can result from ongoing tissue damage and development of tolerance to the prescribed medicine. 6. Please allow 2-3 days to process refills. Prescriptions will not be mailed but must be picked up at the office. FOLLOW UP VISIT: Keep your scheduled follow-up appointment. Any questions, please call the office at . Pending Studies at Discharge: No Stand-Alone Forms: [employer], Smoking Cessation Medications and DC Order Prescriptions: New tramadol 50 mg tablet 50 mg PO Q6H PRN (Reason: pain, moderate) Qty: 30 0RF oxycodone 5 mg tablet 5 mg PO Q6H PRN (Reason: pain) Qty: 30 0RF Continued multivitamin Tablet 1 tab PO QAM calcium carbonate-vitamin D3 600 mg(1,500mg) -200 unit Tablet 1 tab PO QAM paroxetine HCl [Paxil] 20 mg Tablet 20 mg PO QAM docusate sodium [Stool Softener] 100 mg Capsule 100 mg PO QAM acetaminophen [Tylenol Ex Str Arthritis Pain] 500 mg Tablet 1,000 mg PO Q6H PRN (Reason: Pain) baclofen 10 mg Tablet 10 mg PO Q8H PRN (Reason: muscle spasms) cholecalciferol (vitamin D3) [Vitamin D3] 125 mcg (5,000 unit) Tablet 125 mcg PO DAILY Discharge Orders: Discharge Order (Routine); Ordered 09/13/24 Ordered By: Marcos Smith Admission Data Admit Date/Time: 09/11/24 10:50 Attending Provider: Marcos Smith Admit Provider: Marcos Smith Primary Care Provider: Joshua Varma Other Providers: Kayli Mulligan
[2024-09-13 11:26] VITALS: PULSE 81
== END 2024-09-13 13:09 | disposition home or self-care (01) | DRG 402 ==
LOC: ASU 07:20 → 3E 10:50